=== PATIENT | male | born 1995 | race Caucasian/White ===

== ENCOUNTER 2016-11-05 16:52 | Emergency (ER) | payer BC, OTHER ==
[2016-11-05 17:50] VITALS: RESP 20
--- NOTE | 2016-11-05 19:27 | ED ---
General Adult HPI - General Chief complaint: Wound/Laceration Stated complaint: Wound on Toe Time Seen by Provider: 11/05/16 19:07 Source: patient, family, RN notes reviewed Mode of arrival: wheelchair Limitations: physical limitation - History of Present Illness Initial comments: Chief complaint and history of present illness this is a 21-year-old male who is with his mother. The patient has previous neurologic disorderspina bifida with mental retardation. 5 days ago she noticed he had what appeared to be an infection starting on his right great toe. Today this appears to be a small blister. Minimal no drainage this time. Looks to the patient rubs his toe within his shoe against the bottom of the shoe causing a callus which has since opened. - Related Data Home Medications Medication Instructions Recorded Confirmed Losartan [Cozaar] 25 mg PO QAM 06/22/14 11/05/16 Oxybutynin Chloride [Ditropan XL] 15 mg PO QAM 06/22/14 11/05/16 Previous Rx's Medication Instructions Recorded Mupirocin 2% Oint [Bactroban 2% 1 applic TOPICAL TID #22 gm 11/05/16 Oint] Allergies Allergy/AdvReac Type Severity Reaction Status Date / Time Latex, Natural Rubber Allergy Rash/Hives Verified 11/05/16 19:33 nitrofurantoin Allergy Rash/Hives Verified 11/05/16 19:33 macrocrystalline [From Macrodantin] Review of Systems ROS Statement: Those systems with pertinent positive or pertinent negative responses have been documented in the HPI. Review of systems no other complaints at this time. Patient has no sensation from the waist down per mother. Past problems significant for ALLERGIES to latex, natural rubber and nitrofurantoin past history of back surgeries, tonsillectomy and PREVENTION COORDINATOR shunt. History of spina bifida, seizure disorders last was a year ago sleep apnea and uses CPAP. Wheelchair bound. ROS Other: All systems not noted in ROS Statement are negative. Past Medical History Past Medical History: Neurologic Disorder, Seizure Disorder, Sleep Apnea/CPAP/ BIPAP Additional Past Medical History / Comment(s): spina bifida, mentally impaired, mom straight caths pt, past hx renal failure, hx of UTI's w/sepsis in Aug & sep 2013 History of Any Multi-Drug Resistant Organisms: None Reported Past Surgical History: Back Surgery, Tonsillectomy Additional Past Surgical History / Comment(s): PREVENTION COORDINATOR shunt w/several revisions, back surg. 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 right uretral reimplantation, cervical fusion, cystoscopy with double-J stent left uretera 03/29/2016. Past Anesthesia/Blood Transfusion Reactions: No Reported Reaction Past Psychological History: No Psychological Hx Reported Smoking Status: Never smoker Past Alcohol Use History: None Reported Additional Past Alcohol Use History / Comment(s): Patient lives at home with his mother. 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 Past Drug Use History: None Reported - Past Family History Brother(s) Family Medical History: Seizure Disorder General Exam - General Exam Comments Initial Comments: General: The patient is awake and alert, in no distress, patient is pleasant and answers questions without difficulty. Vital signs temp 97.5 pulse 112 respiratory rate 20 pulse ox 97% room air blood pressure 141/85. Elevated systolic noted. Patient be following up with his family physician next week. Eye: Pupils are equal, , extra-ocular movements are intact; there is normal conjunctiva bilaterally. No signs of icterus. Ears, nose, mouth and throat: There are moist mucous membranes Neck: No apparent pain with head or neck movement Cardiovascular: There is a regular rate and rhythm. No murmur, rub or gallop is appreciated. Respiratory: Lungs clear to auscultation Gastrointestinal: Morbidly obese, 5 foot 1 and weighs 315 pounds Musculoskeletal: Examination of the right great toe finds were area around the tip of the toe where the patient appears to have "formed callus rubbing either on the bottom of his shoe or on the inside of his shoe he is nonambulatory. Does not appear to have been caused by bumping it against a solid surface but rather the center of the callus was worn down and he developed a little bubble of infection this area. Essentially dry at this time culture was taken of the tip where mother reports there was a discharge earlier Neurological: Spina bifida nonambulatory Limitations: physical limitation Course Vital Signs 11/05/16 17:47 Temperature 97.5 F L Pulse Rate 112 H Respiratory 20 Rate Blood Pressure 141/85 O2 Sat by Pulse 97 Oximetry Medical Decision Making - Medical Decision Making Medical decision making; culture of the tip of the toe was sent to lab. X-ray of the toes were done and reviewed by radiologist his impression is there is a 5 mm nondisplaced chip fracture of the posterior base of the distal phalanx of the big toe seen on the lateral. There is no dislocation. Impression; small nondisplaced chip fracture of the distal phalanx of the toe. As read by Dr. Severino The patient will have topical Bactroban placed on the area to prevent infection. I discussed with mother the possibility of a small fracture. We advised that they follow-up with the family physician Disposition Clinical Impression: Infection of toe Disposition: HOME SELF-CARE Condition: Fair Additional Instructions: Apply Bactroban 3 times daily, wear white socks. Give plenty of room for the toe in the shoe. Wear clean shoes Prescriptions: Mupirocin 2% Oint [Bactroban 2% Oint] 1 applic TOPICAL TID #22 gm Time of Disposition: 21:05
--- NOTE | 2016-11-05 19:36 | XR ---
EXAMINATION TYPE: XR toes RT DATE OF EXAM: 11/05/2016 7:32 PM COMPARISON: NONE HISTORY: Stubbed big toe TECHNIQUE: 3 views FINDINGS: There is a 5 mm nondisplaced chip fracture of the posterior base of the distal phalanx of t he big toe seen on the lateral view. There is no dislocation. IMPRESSION: Small nondisplaced chip fracture of the distal phalanx of the big toe.
[2016-11-05 21:26] VITALS: BP 142/67; PULSE 87; TEMP 97.9
[2016-11-05] MEDS ORDERED: MUPIROCIN 2% OINT 22 GM TUBE TOPICAL SCH (22:00)
== END 2016-11-05 21:26 | disposition home or self-care (01) ==
LOC: EC 16:52
DX: S92.424A Nondisplaced fracture of distal phalanx of right great toe, initial encounter for closed fracture (principal); L08.9 Local infection of the skin and subcutaneous tissue, unspecified; Q05.9 Spina bifida, unspecified; F79 Unspecified intellectual disabilities; Z79.899 Other long term (current) drug therapy; Z91.040 Latex allergy status; Z88.8 Allergy status to other drugs, medicaments and biological substances; X58.XXXA Exposure to other specified factors, initial encounter
CPT/HCPCS: 87070; 87205; 99283

== ENCOUNTER → 2016-11-17 | Outpatient (CLI) | payer OTHER ==
--- NOTE | 2016-11-17 19:59 | CT ---
EXAMINATION TYPE: CT abdomen pelvis wo con DATE OF EXAM: 11/17/2016 7:35 PM COMPARISON: 04/13/2016 HISTORY: History of kidney stones. Unsure of side. CT DLP: 1533.00 mGycm Automated exposure control for dose reduction was used. TECHNIQUE: Helical acquisition of images was performed from the lung bases through the pelvis. FINDINGS: The lung bases are clear. There is no pleural effusion. The spleen is slightly enlarged. Spleen measures 14 x 7 cm. Liver shows no focal defect. Mild ducts a re not dilated. Gallbladder appears normal. There is no pancreatic mass. There is no adrenal mass. There are multiple bilateral renal calcifications. There is some renal liseth ical atrophy. This calcification seen in the lower poles of both kidneys. The ureters are not dilated . There is no retroperitoneal adenopathy. There is no ascites. Appendix appears normal. There is a lowell ia on the posterior lateral abdomen on the right side that contains the appendix and omental fat. The re is no sign of a bowel obstruction. I see no bony destructive process. There is a large spur at T11 -12 posteriorly that is encroaching on the spinal canal and producing a significant spinal stenosis. There is spina bifida noted in the lower lumbar spine. I see no intestinal wall thickening. There are no dilated loops. There is noted in the apparent ventriculoperitoneal shunt catheter that is looped in the pelvis. Bladder distends smoothly. There is no sign of a pelvic mass. IMPRESSION: THERE IS A LATERAL POSTERIOR ABDOMINAL WALL HERNIA THAT CONTAINS THE APPENDIX AND PERITONEAL FAT. NO HERNIA IS SMALLER THAN OLD CT SCAN. NO EVIDENCE OF A BOWEL OBSTRUCTION. SIGNIFICANT SPINAL STENOSIS AT T11-12. RENAL CALCIFICATIONS AND CORTICAL THINNING CONSISTENT WITH CHR ONIC PYELONEPHRITIS AND SCARRING. THERE HAS BEEN REMOVAL OF THE LEFT-SIDED URETERAL STENT SINCE OLD E XAM. NO EVIDENCE OF A RENAL OBSTRUCTION. MUSCLE ATROPHY. SPINA BIFIDA. MILD SPLENOMEGALY. DILATED FLORIDALMA YCES CONSISTENT WITH CHRONIC PYELONEPHRITIS.
== END ==
LOC: RADCTMAIN 19:11
PROVIDERS: ATTEND Urology
DX: N28.89 Other specified disorders of kidney and ureter (principal); K43.9 Ventral hernia without obstruction or gangrene; N11.9 Chronic tubulo-interstitial nephritis, unspecified
CPT/HCPCS: 74176

== ENCOUNTER → 2017-02-23 | Outpatient (CLI) | payer OTHER ==
--- NOTE | 2017-02-23 15:53 | US ---
EXAMINATION TYPE: US kidneys/renal and bladder DATE OF EXAM: 02/23/2017 COMPARISON: ct abdomen and pelvis April 13, 2016 CLINICAL HISTORY: N20.0 Kidney stones. Pt had left renal stone open surgically 07/06 right kidney stent 02/18/2017 pt is w/c and spina bifida and multiple head surgeries EXAM MEASUREMENTS: Right Kidney: 10.1 x 4.3 x 4.7 cm Left Kidney: 8.5 x 4.1 x 3.5 cm Right Kidney: hydronephrosis, stones 0.5 cm mid, Left Kidney: No hydronephrosis or masses seen , Bladder: small calcifications, left bladder 0.4 , 0.5 , 0.7 cm Bilateral Jets seen: left only Normal Post Void Residual: pt needs to be catheterize to void Bladder is poorly distended with small intraluminal calcifications felt present as there are mobile h yperechoic foci seen, differential includes debris. Distal left ureter jet is seen. Distal right jet is not clearly identified. Severe right-sided hydronephrosis is present currently with cortical thinning. Renal calculi are seen better on recent CT. Marked cortical thinning and small size left kidney is noted. No hydronephrosis is identified. Left-sided renal calculi are seen better on CT than ultrasound. IMPRESSION: Severe right-sided hydronephrosis more prominent than prior CT. Consider obstructing righ t ureter calculus, correlate with symptoms of new right-sided flank pain.
== END | disposition home or self-care (01) ==
LOC: RADUSWWP 15:01
PROVIDERS: ATTEND Urology
DX: N13.30 Unspecified hydronephrosis (principal)
CPT/HCPCS: 76770

== ENCOUNTER → 2017-04-22 | Outpatient (CLI) | payer OTHER ==
--- NOTE | 2017-04-22 18:58 | US ---
EXAMINATION TYPE: US kidneys/renal and bladder DATE OF EXAM: 04/22/2017 COMPARISON: Prior US and CT in PACS CLINICAL HISTORY: N13.39 Hydronephrosis, N20.0 Kidney Stone. Difficult/limited exam as patient has sp arcelia bifida and cannot roll or move his body into different positions. Large body habitus. UTI EXAM MEASUREMENTS: Right Kidney: 11.2 x 5.4 x 5.6 cm Left Kidney: 9.3 x 4.9 x 4.6 cm Right Kidney: Hydronephrosis, cortical thinning. No obvious stones visualized on this exam. Left Kidney: No hydronephrosis, no obvious stones visualized on this exam. Bladder: Non-shadowing, hyperechoic, projection like areas visualized on the right side of the bladde r. I do not feel that these are mobile, however it is difficult to say with certainty as the patient cannot roll onto his side. These measure 0.7 and are avascular Bilateral Jets seen: Yes IMPRESSION: There is bilateral renal cortical thinning. There is right-sided hydronephrosis that appears new comp ared to CT scan of 03/29/2016 and could relate to acute obstruction. There is however bilateral ureteral jets in the urinary bladder. There is clearing of the left-sided hydronephrosis compared to the old CT scan. Limited exam due to p atient's size. Irregular urinary bladder. This could relate to chronic cystitis.
== END | disposition home or self-care (01) ==
LOC: RADUSMAIN 17:49
PROVIDERS: ATTEND Urology
DX: N13.2 Hydronephrosis with renal and ureteral calculous obstruction (principal); N30.20 Other chronic cystitis without hematuria
CPT/HCPCS: 76770

== ENCOUNTER → 2017-05-05 | Outpatient (CLI) | payer OTHER | LOC: LABWHC1 08:24 | PROVIDERS: ATTEND Urology | DX: N13.39 Other hydronephrosis (principal) | CPT/HCPCS: 87077; 87086; 87186 ==

== ENCOUNTER 2017-09-15 22:53 | Observation (INO) | payer OTHER ==
[2017-09-15] MEDS ORDERED: SODIUM CHLORIDE 0.9% 1,000 ML IV STA (23:17)
[2017-09-15] MEDS ORDERED: LEVOFLOXACIN 750MG-D5W PMX 750 MG in DEXTROSE/WATER 1 150ML.BAG IVPB STA (23:17)
--- NOTE | 2017-09-15 23:25 | ED ---
Abdominal Pain HPI - General Chief Complaint: Abdominal Pain Stated Complaint: Back Pain Time Seen by Provider: 09/15/17 23:00 Source: patient, family (mother and stepfather) Mode of arrival: EMS Limitations: physical limitation - History of Present Illness Initial Comments: this patient is a 22-year-old man who presents to be evaluated for left flank pain that started between 1 and 2 hours ago. He describes it as sharp, moderate , constant. He has not noted any worsening or relieving factors. Patient states that it is similar to previous pain he had related to kidney stones. He denies any associated symptoms. MD Complaint: flank pain (left) Onset/Timin -: hour(s) Location: L flank Radiation: none Migration to: no migration Severity: moderate Quality: sharp Consistency: constant Improves With: nothing Worsens With: nothing Associated Symptoms: denies other symptoms - Related Data Home Medications Medication Instructions Recorded Confirmed Losartan [Cozaar] 25 mg PO QAM 06/22/14 09/15/17 Oxybutynin Chloride [Ditropan XL] 15 mg PO QAM 06/22/14 09/15/17 Allergies Allergy/AdvReac Type Severity Reaction Status Date / Time Latex, Natural Rubber Allergy Rash/Hives Verified 09/15/17 23:06 nitrofurantoin Allergy Rash/Hives Verified 09/15/17 23:06 macrocrystalline [From Macrodantin] Review of Systems ROS Statement: Those systems with pertinent positive or pertinent negative responses have been documented in the HPI. ROS Other: All systems not noted in ROS Statement are negative. Constitutional: Denies: fever, chills, weakness Respiratory: Denies: cough, dyspnea Cardiovascular: Denies: chest pain, orthopnea, edema, syncope Gastrointestinal: Reports: as per HPI, abdominal pain. Denies: nausea, vomiting , diarrhea, constipation Genitourinary: Denies: frequency, hematuria Musculoskeletal: Denies: back pain Skin: Denies: rash Neurological: Denies: headache Past Medical History Past Medical History: Neurologic Disorder, Seizure Disorder, Sleep Apnea/CPAP/ BIPAP Additional Past Medical History / Comment(s): spina bifida, mentally impaired, mom straight caths pt, past hx renal failure, hx of UTI's w/sepsis in Aug & sep 2013 History of Any Multi-Drug Resistant Organisms: None Reported Past Surgical History: Back Surgery, Tonsillectomy Additional Past Surgical History / Comment(s): 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 right uretral reimplantation, cervical fusion, cystoscopy with double-J stent left uretera 03/29/2016. Past Anesthesia/Blood Transfusion Reactions: No Reported Reaction Past Psychological History: No Psychological Hx Reported Smoking Status: Never smoker Past Alcohol Use History: None Reported Past Drug Use History: None Reported - Past Family History Brother(s) Family Medical History: Seizure Disorder General Exam Limitations: physical limitation General appearance: alert, obese Head exam: Present: atraumatic, normocephalic Eye exam: Present: normal appearance. Absent: scleral icterus, conjunctival injection ENT exam: Present: normal oropharynx Neck exam: Present: normal inspection Respiratory exam: Present: normal lung sounds bilaterally. Absent: respiratory distress, wheezes, rales, rhonchi, stridor Cardiovascular Exam: Present: normal rhythm, tachycardia, normal heart sounds. Absent: systolic murmur, diastolic murmur, rubs, gallop GI/Abdominal exam: Present: soft. Absent: distended, tenderness, guarding, rebound Extremities exam: Present: pedal edema, other (patient has congenital deformities and edema bilaterally. Patient's mother states that the appearance is normal for him.) Back exam: Present: CVA tenderness (L). Absent: CVA tenderness (R) Neurological exam: Present: alert, oriented X3, motor sensory deficit (patient has no sensation to the bilateral lower extremities, which is chronic for him) Skin exam: Present: warm, dry, intact, normal color. Absent: rash Course Vital Signs 09/15/17 09/16/17 09/16/17 23:00 01:14 02:43 Temperature 98.5 F Pulse Rate 125 H 122 H 129 H Respiratory 22 18 18 Rate Blood Pressure 163/91 156/92 137/91 O2 Sat by Pulse 97 97 97 Oximetry Medical Decision Making - Medical Decision Making This patient is 22-year-old man with history of kidney stones and urinary tract infections. The patient does have urinary tract infection. We are unable to start an IV in the department. I discussed central line placement with the patient and his mother and they are refusing at this point. Patient's mother states he has had good results in the past with PICC line a cement and she is asking if that can be done for him. Based on the results of the patient's last urine culture from August 31, patient will be given dose of IM Rocephin and she will be admitted to have PICC line placement as soon as the PICC team is available. - Lab Data Result diagrams: 09/16/17 00:30 09/16/17 00:30 Lab Results 09/16/17 09/16/17 09/16/17 Range/Units 00:30 00:30 00:30 WBC 9.1 (3.8-10.6) k/uL RBC 5.14 (4.30-5.90) m/uL Hgb 15.6 (13.0-17.5) gm/dL Hct 47.2 (39.0-53.0) % MCV 91.9 (80.0-100.0) fL MCH 30.4 (25.0-35.0) pg MCHC 33.1 (31.0-37.0) g/dL RDW 14.9 (11.5-15.5) % Plt Count 240 (150-450) k/uL Neutrophils % 77 % Lymphocytes % 16 % Monocytes % 4 % Eosinophils % 2 % Basophils % 0 % Neutrophils # 7.0 (1.3-7.7) k/uL Lymphocytes # 1.4 (1.0-4.8) k/uL Monocytes # 0.4 (0-1.0) k/uL Eosinophils # 0.1 (0-0.7) k/uL Basophils # 0.0 (0-0.2) k/uL Sodium 141 (137-145) mmol/L Potassium 4.5 (3.5-5.1) mmol/L Chloride 105 (98-107) mmol/L Carbon Dioxide 23 (22-30) mmol/L Anion Gap 13 mmol/L BUN 32 H (9-20) mg/dL Creatinine 1.20 (0.66-1.25) mg/dL Est GFR (MDRD) Af Amer >60 (>60 ml/min/1.73 sqM) Est GFR (MDRD) Non-Af >60 (>60 ml/min/1.73 sqM) Glucose 108 H (74-99) mg/dL Plasma Lactic Acid Yogi (0.7-2.0) mmol/L Calcium 10.0 (8.4-10.2) mg/dL Total Bilirubin 0.5 (0.2-1.3) mg/dL AST 26 (17-59) U/L ALT 51 (21-72) U/L Alkaline Phosphatase 93 (38-126) U/L Troponin I <0.012 (0.000-0.034) ng/mL Total Protein 8.2 (6.3-8.2) g/dL Albumin 4.5 (3.5-5.0) g/dL Amylase 39 (30-110) U/L Lipase 63 (23-300) U/L Urine Color Urine Appearance (Clear) Urine pH (5.0-8.0) Ur Specific [place] (1.001-1.035) Urine Protein (Negative) Urine Glucose (UA) (Negative) Urine Ketones (Negative) Urine Blood (Negative) Urine Nitrite (Negative) Urine Bilirubin (Negative) Urine Urobilinogen (<2.0) mg/dL Ur Leukocyte Esterase (Negative) Urine WBC (0-5) /hpf Urine WBC Clumps (None) /hpf Urine Mucus (None) /hpf 09/16/17 09/16/17 Range/Units 00:59 01:51 WBC (3.8-10.6) k/uL RBC (4.30-5.90) m/uL Hgb (13.0-17.5) gm/dL Hct (39.0-53.0) % MCV (80.0-100.0) fL MCH (25.0-35.0) pg MCHC (31.0-37.0) g/dL RDW (11.5-15.5) % Plt Count (150-450) k/uL Neutrophils % % Lymphocytes % % Monocytes % % Eosinophils % % Basophils % % Neutrophils # (1.3-7.7) k/uL Lymphocytes # (1.0-4.8) k/uL Monocytes # (0-1.0) k/uL Eosinophils # (0-0.7) k/uL Basophils # (0-0.2) k/uL Sodium (137-145) mmol/L Potassium (3.5-5.1) mmol/L Chloride (98-107) mmol/L Carbon Dioxide (22-30) mmol/L Anion Gap mmol/L BUN (9-20) mg/dL Creatinine (0.66-1.25) mg/dL Est GFR (MDRD) Af Amer (>60 ml/min/1.73 sqM) Est GFR (MDRD) Non-Af (>60 ml/min/1.73 sqM) Glucose (74-99) mg/dL Plasma Lactic Acid Yogi 0.6 L (0.7-2.0) mmol/L Calcium (8.4-10.2) mg/dL Total Bilirubin (0.2-1.3) mg/dL AST (17-59) U/L ALT (21-72) U/L Alkaline Phosphatase (38-126) U/L Troponin I (0.000-0.034) ng/mL Total Protein (6.3-8.2) g/dL Albumin (3.5-5.0) g/dL Amylase (30-110) U/L Lipase (23-300) U/L Urine Color Yellow Urine Appearance Turbid (Clear) Urine pH 7.0 (5.0-8.0) Ur Specific [place] 1.015 (1.001-1.035) Urine Protein 2+ H (Negative) Urine Glucose (UA) Negative (Negative) Urine Ketones Negative (Negative) Urine Blood Moderate H (Negative) Urine Nitrite Positive (Negative) Urine Bilirubin Negative (Negative) Urine Urobilinogen <2.0 (<2.0) mg/dL Ur Leukocyte Esterase Large H (Negative) Urine WBC >182 H (0-5) /hpf Urine WBC Clumps Many H (None) /hpf Urine Mucus Rare H (None) /hpf Disposition Clinical Impression: UTI (urinary tract infection), Sepsis, Fever Disposition: ADMITTED IP TO THIS [facility] Condition: Serious Referrals: Manfred Barraza MD [Primary Care Provider] - 1-2 days
[2017-09-16 00:43] LABS: Basophils % (A) 0 %; Eosinophils # (A) 0.1 k/uL (0-0.7); Eosinophils % (A) 2 %; HCT 47.2 % (39.0-53.0); HGB 15.6 gm/dL (13.0-17.5); Lymphocytes # (A) 1.4 k/uL (1.0-4.8); Lymphocytes % (A) 16 %; MCH 30.4 pg (25.0-35.0); MCHC 33.1 g/dL (31.0-37.0); MCV 91.9 fL (80.0-100.0); Mean Platelet Volume 7.5; Monocytes # (A) 0.4 k/uL (0-1.0); Monocytes % (A) 4 %; Neutrophils % (A) 77 %; Platelet Count 240 k/uL (150-450); RBC 5.14 m/uL (4.30-5.90); RDW 14.9 % (11.5-15.5); WBC 9.1 k/uL (3.8-10.6)
[2017-09-16 00:59] LABS: ALT 51 U/L (21-72); AST 26 U/L (17-59); Albumin 4.5 g/dL (3.5-5.0); Alkaline Phosphatase 93 U/L (38-126); Amylase 39 U/L (30-110); Anion Gap 13 mmol/L; Blood Urea Nitrogen 32 mg/dL (9-20); Carbon Dioxide 23 mmol/L (22-30); Chloride 105 mmol/L (98-107); Glucose 108 mg/dL (74-99); Lipase 63 U/L (23-300); Potassium 4.5 mmol/L (3.5-5.1); Sodium 141 mmol/L (137-145); Total Bilirubin 0.5 mg/dL (0.2-1.3); Total Protein 8.2 g/dL (6.3-8.2)
[2017-09-16] MEDS ORDERED: LEVOFLOXACIN 750 MG TAB PO STA (01:03)
[2017-09-16] MEDS ORDERED: HYDROcodone/APAP 5-325MG 1 EACH TAB PO STA (01:56)
[2017-09-16 02:04] LABS: Appearance,Urine Turbid (Clear); Bilirubin,Urine Negative (Negative); Blood,Urine Moderate (Negative); Color,Urine Yellow; Glucose,Urine (UA) Negative (Negative); Ketones,Urine Negative (Negative); Leukocyte Esterase,Urine Large (Negative); Mucus,Urine Rare /hpf; Nitrite,Urine Positive (Negative); Protein,Urine 2+ (Negative); Specific Gravity,Urine 1.015 (1.001-1.035); Urobilinogen,Urine <2.0 mg/dL (<2.0); WBC,Urine >182 /hpf (0-5)
[2017-09-16] MEDS ORDERED: HYDROmorphone 1 MG/ML 1 ML SYRINGE IVP STA (02:31)
[2017-09-16] MEDS ORDERED: NALOXONE 0.4 MG/ML 1 ML VIAL IV PRN (02:37)
[2017-09-16] MEDS ORDERED: ACETAMINOPHEN TAB 325 MG TAB PO PRN (02:37)
[2017-09-16] MEDS ORDERED: MORPHINE SULFATE 5 MG/ML SYRINGE IV PRN (02:37)
[2017-09-16] MEDS ORDERED: ONDANSETRON 4 MG/2 ML VIAL IVP PRN (02:37)
[2017-09-16] MEDS ORDERED: cefTRIAXone 1,000 MG VIAL (IM USE) IM STA (02:43)
[2017-09-16] MEDS: SODIUM CHLORIDE 0.9% 1,000 ML IV SCH ×4 (02:55→23:19)
[2017-09-16] MEDS: HEPARIN SODIUM,PORCINE 5,000 UNIT/ML 1 ML VIAL SQ SCH ×3 (08:00→23:19)
[2017-09-16] MEDS: FAMOTIDINE 20 MG TAB PO SCH ×2 (10:45→20:02)
--- NOTE | 2017-09-16 10:52 | P.GSCN ---
History of Present Illness Consult date: 09/16/17 Reason for Consult: Urinary tract infection with sepsis History of present illness: The patient is a 22-year-old male, born with myelomeningocele who was admitted to the hospital urinary tract infection with sepsis. We are asked see the patient consultation. I've seen the patient in the past, urinary half ago for a ureteral calculus, urinary tract infection with sepsis. At that point in time a double-J catheter is placed in the sepsis was controlled. The patient has and had [place] [facility] [place] up having surgery therefore the ureteral and renal stones. He had both open surgery and shockwave lithotripsy. At present he has been going through continued urologic workup by Drs. Hollis and Alex from [place] [facility]. He has a right double-J catheter for an apparent ureteral stricture that gets changed every 2 months. He was last changed in June. He apparently still has a small volume of stone in his left kidney. He is going through a workup at present to determine future management of his upper urinary tract. Lower urinary tract is managed by intermittent catheterization by the patient's mother. This is done every 4 hours. The only previous urologic surgeries related to a reimplant of the right ureter and kidney stone disease. He had left-sided flank pain. He denies fever or chills. He is feeling somewhat better. There is been no nausea or vomiting. His white count was 9.1. He is afebrile. Urine indeed did look infected. He recently was on antibiotics from the office in [facility] Review of Systems - Constitutional Reports chills - Gastrointestinal Reports abdominal pain Past Medical History Past Medical History: Neurologic Disorder, Seizure Disorder, Sleep Apnea/CPAP/ BIPAP Additional Past Medical History / Comment(s): spina bifida, mentally impaired, mom straight caths pt, past hx renal failure, hx of UTI's w/sepsis in Aug & sep 2013 History of Any Multi-Drug Resistant Organisms: None Reported Past Surgical History: Back Surgery, Tonsillectomy Additional Past Surgical History / Comment(s): RADIO PRESENTER shunt w/several revisions, back surg. 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 right uretral reimplantation, cervical fusion, cystoscopy with double-J stent left uretera 03/29/2016. Past Anesthesia/Blood Transfusion Reactions: No Reported Reaction Past Psychological History: No Psychological Hx Reported Smoking Status: Never smoker Past Alcohol Use History: None Reported Past Drug Use History: None Reported - Past Family History Brother(s) Family Medical History: Seizure Disorder Father Family Medical History: Myocardial Infarction ([place]) Additional Family Medical History / Comment(s): Father of heart attack in 2015 Medications and Allergies Home Medications Medication Instructions Recorded Confirmed Type Losartan [Cozaar] 25 mg PO QAM 06/22/14 09/15/17 History Oxybutynin Chloride [Ditropan XL] 15 mg PO QAM 06/22/14 09/15/17 History Allergies Allergy/AdvReac Type Severity Reaction Status Date / Time Latex, Natural Rubber Allergy Rash/Hives Verified 09/15/17 23:06 nitrofurantoin Allergy Rash/Hives Verified 09/15/17 23:06 macrocrystalline [From Macrodantin] Surgical - Exam Vital Signs Temp Pulse Resp BP Pulse Ox 98.5 F 125 H 22 163/91 97 09/15/17 23:00 09/15/17 23:00 09/15/17 23:00 09/15/17 23:00 09/15/17 23:00 - General well developed, well nourished, obese - Eyes PERRL - ENT no hearing loss - Neck trachea midline - Respiratory normal expansion, normal respiratory effort - Cardiovascular Rhythm: regular - Abdomen Abdomen: soft, non tender - Musculoskeletal The patient has a classic myelomeningocele body habitus. He is wheelchair bound. His lower extremities are nonfunctional. other - Psychiatric oriented to time, oriented to person, oriented to place Results - Labs 09/16/17 00:30 09/16/17 00:30 Abnormal Lab Results - Last 24 Hours (Table) 09/16/17 09/16/17 09/16/17 Range/Units 00:30 00:59 01:51 BUN 32 H (9-20) mg/dL Glucose 108 H (74-99) mg/dL Plasma Lactic Acid Yogi 0.6 L (0.7-2.0) mmol/L Urine Protein 2+ H (Negative) Urine Blood Moderate H (Negative) Ur Leukocyte Esterase Large H (Negative) Urine WBC >182 H (0-5) /hpf Urine WBC Clumps Many H (None) /hpf Urine Mucus Rare H (None) /hpf Diabetes panel 09/16/17 Range/Units 00:30 Sodium 141 (137-145) mmol/L Potassium 4.5 (3.5-5.1) mmol/L Chloride 105 (98-107) mmol/L Carbon Dioxide 23 (22-30) mmol/L BUN 32 H (9-20) mg/dL Creatinine 1.20 (0.66-1.25) mg/dL Glucose 108 H (74-99) mg/dL Calcium 10.0 (8.4-10.2) mg/dL AST 26 (17-59) U/L ALT 51 (21-72) U/L Alkaline Phosphatase 93 (38-126) U/L Total Protein 8.2 (6.3-8.2) g/dL Albumin 4.5 (3.5-5.0) g/dL Calcium panel 09/16/17 Range/Units 00:30 Calcium 10.0 (8.4-10.2) mg/dL Albumin 4.5 (3.5-5.0) g/dL Pituitary panel 09/16/17 Range/Units 00:30 Sodium 141 (137-145) mmol/L Potassium 4.5 (3.5-5.1) mmol/L Chloride 105 (98-107) mmol/L Carbon Dioxide 23 (22-30) mmol/L BUN 32 H (9-20) mg/dL Creatinine 1.20 (0.66-1.25) mg/dL Glucose 108 H (74-99) mg/dL Calcium 10.0 (8.4-10.2) mg/dL Adrenal panel 09/16/17 Range/Units 00:30 Sodium 141 (137-145) mmol/L Potassium 4.5 (3.5-5.1) mmol/L Chloride 105 (98-107) mmol/L Carbon Dioxide 23 (22-30) mmol/L BUN 32 H (9-20) mg/dL Creatinine 1.20 (0.66-1.25) mg/dL Glucose 108 H (74-99) mg/dL Calcium 10.0 (8.4-10.2) mg/dL Total Bilirubin 0.5 (0.2-1.3) mg/dL AST 26 (17-59) U/L ALT 51 (21-72) U/L Alkaline Phosphatase 93 (38-126) U/L Total Protein 8.2 (6.3-8.2) g/dL Albumin 4.5 (3.5-5.0) g/dL Assessment and Plan Assessment: Impression: Urinary tract infection, myelomeningocele, history of kidney stones , history of right ureteral stricture. Neurogenic bladder. Recommendations since the patient is cared for urologically at [facility] I will only get a KUB to make sure he doesn't have a left ureteral stone however I suspect this is not the case is his white count is not elevated nor is his creatinine significantly. If the KUB is negative than antibiotics are all that will be necessary. He will follow-up with his urologist at [facility].
[2017-09-16] MEDS: HYDROcodone/APAP 5-325MG 1 EACH TAB PO PRN ×2 (10:58→19:27)
[2017-09-16] MEDS ORDERED: LIDOCAINE 2% INJ 20 MG/ML SQ ONE (11:38)
--- NOTE | 2017-09-16 11:50 | P.HPIM ---
History of Present Illness 22-year-old male with history of some dull mental delay and meningo- myelocele with history of multiple urinary tract infections in the past and urethral stones with the J-tube placement in the past came in with the complaints of left flank pain patient does have significant elevated white blood cell count in the urine patient was subsequently elevated admitted for urinary tract infection patient was was well-known to Dr. Patten infectious disease and urology, neurology evaluated the patient and a KUB x-ray is being obtained, ultrasound of the urinary bladder but I do not have results available area patient does not have any fever doesn't have any leukocytosis. Infectious disease is recommending a PICC line Review of Systems REVIEW OF SYSTEMS: CONSTITUTIONAL: No fever, no malaise, no fatigue. HEENT: No recent visual problems or hearing problems. Denied any sore throat. CARDIOVASCULAR: No chest pain, orthopnea, PND, no palpitations, no syncope. PULMONARY: No shortness of breath, no cough, no hemoptysis. GASTROINTESTINAL: No diarrhea, no nausea, no vomiting, no abdominal pain. Normoactive bowel sounds. NEUROLOGICAL: No headaches, no weakness, no numbness. HEMATOLOGICAL: Denies any bleeding or petechiae. GENITOURINARY: Denies any burning micturition, frequency, or urgency. MUSCULOSKELETAL/RHEUMATOLOGICAL: Denies any joint pain, swelling, or any muscle pain. ENDOCRINE: Denies any polyuria or polydipsia. The rest of the 14-point review of systems is negative. Past Medical History Past Medical History: Neurologic Disorder, Seizure Disorder, Sleep Apnea/CPAP/ BIPAP Additional Past Medical History / Comment(s): spina bifida, mentally impaired, mom straight caths pt, past hx renal failure, hx of UTI's w/sepsis in Aug & sep 2013 History of Any Multi-Drug Resistant Organisms: None Reported Past Surgical History: Back Surgery, Tonsillectomy Additional Past Surgical History / Comment(s): BRIDGE EXPERT shunt w/several revisions, back surg. 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 right uretral reimplantation, cervical fusion, cystoscopy with double-J stent left uretera 03/29/2016. Past Anesthesia/Blood Transfusion Reactions: No Reported Reaction Past Psychological History: No Psychological Hx Reported Smoking Status: Never smoker Past Alcohol Use History: None Reported Past Drug Use History: None Reported - Past Family History Brother(s) Family Medical History: Seizure Disorder Father Family Medical History: Myocardial Infarction ([place]) Additional Family Medical History / Comment(s): Father of heart attack in 2016 Medications and Allergies Home Medications Medication Instructions Recorded Confirmed Type Losartan [Cozaar] 25 mg PO QAM 06/22/14 09/15/17 History Oxybutynin Chloride [Ditropan XL] 15 mg PO QAM 06/22/14 09/15/17 History Allergies Allergy/AdvReac Type Severity Reaction Status Date / Time Latex, Natural Rubber Allergy Rash/Hives Verified 09/15/17 23:06 nitrofurantoin Allergy Rash/Hives Verified 09/15/17 23:06 macrocrystalline [From Macrodantin] Physical Exam Vitals: Vital Signs Temp Pulse Pulse Resp BP BP Pulse Ox 09/16/17 07:00 98.0 F 112 H 18 129/81 97 09/16/17 04:00 98.5 F 113 H 16 147/65 94 L 09/16/17 03:23 99.1 F 129 H 20 134/74 97 09/16/17 02:43 129 H 18 137/91 97 09/16/17 01:14 122 H 18 156/92 97 09/15/17 23:00 98.5 F 125 H 22 163/91 97 Intake and Output 09/15/17 09/16/17 09/16/17 22:59 06:59 14:59 Intake Total 0 Balance 0 Intake: IV 0 Sodium Chloride 0.9% 1, 0 000 ml @ 150 mls/hr IV . Q6H40M [facility] Rx#:[id number] Other: Voiding Method Diaper Incontinent Self-Catheterization # Voids 0 Weight 133.81 kg PHYSICAL EXAMINATION: GENERAL: The patient is alert and oriented x3, not in any acute distress. Well developed, well nourished. These HEENT: Pupils are round and equally reacting to light. EOMI. No scleral icterus. No conjunctival pallor. Normocephalic, atraumatic. No pharyngeal erythema. No thyromegaly. CARDIOVASCULAR: S1 and S2 present. No murmurs, rubs, or gallops. PULMONARY: Chest is clear to auscultation, no wheezing or crackles. ABDOMEN: Soft, nontender, nondistended, normoactive bowel sounds. No palpable organomegaly. MUSCULOSKELETAL: No joint swelling or deformity. EXTREMITIES: No cyanosis, clubbing, or pedal edema. NEUROLOGICAL: Gross neurological examination did not reveal any focal deficits. His have developmental delay SKIN: No rashes. Results CBC & Chem 7: 09/16/17 00:30 09/16/17 00:30 Labs: Abnormal Lab Results - Last 24 Hours (Table) 09/16/17 09/16/17 09/16/17 Range/Units 00:30 00:59 01:51 BUN 32 H (9-20) mg/dL Glucose 108 H (74-99) mg/dL Plasma Lactic Acid Yogi 0.6 L (0.7-2.0) mmol/L Urine Protein 2+ H (Negative) Urine Blood Moderate H (Negative) Ur Leukocyte Esterase Large H (Negative) Urine WBC >182 H (0-5) /hpf Urine WBC Clumps Many H (None) /hpf Urine Mucus Rare H (None) /hpf Microbiology - Last 24 Hours (Table) 09/16/17 01:51 Urine Culture - Preliminary Urine,Catheterized Thrombosis Risk Factor Assmnt - Choose All That Apply Any of the Below Risk Factors Present?: Yes Each Factor Represents 1 point: Medical pt on bed rest, Obesity (BMI >25) Other Risk Factors: Yes Each Risk Factor Represents 2 Points: Patient confined to bed Thrombosis Risk Factor Assessment Total Risk Factor Score: 4 Thrombosis Risk Factor Assessment Level: Moderate Risk Assessment and Plan Plan: -Left flank pain: Possibility of left renal calculi and possibility of urinary tract infection patient is on on Rocephin and IV fluids to be continued patient had E. coli in the past which was sensitive to Rocephin and other cephalosporins. -Seizure disorder -Obesity and sleep apnea and uses CPAP machine at home which will be continued -Hypertension -meningomyelocele and mental delay for his chronic medical problems patient will continued on appropriate home medications.
--- NOTE | 2017-09-16 12:16 | US ---
EXAMINATION TYPE: US kidneys/renal and bladder DATE OF EXAM: 09/16/2017 COMPARISON: US dated 04/22/[address] & [address] dated 11/17/2016 CLINICAL HISTORY: hydronephrosis. H/O renal stones, hydro, right renal stent in place x 1 1/2 yrs, co mplains of left flank pain EXAM MEASUREMENTS: Right Kidney: 10.1 x 3.8 x 3.6 cm Left Kidney: 9.3 x 4.7 x 4.1 cm Difficult scan, portable on morbidly obese pt Right Kidney: Cortical thinning, hydronephrosis has improved when compared to previous, only mild hyd ronephrosis persists/ possible 9mm calculus at upper pole Left Kidney: No evidence of hydro, possible 9mm calculi at upper pole, difficult to visualize Bladder: Irregular posterior wall as seen on previous Bilateral Jets seen: No Incidental finding enlarged spleen There is a stent noted distally at the level of the ureterovesical orifice on the right. IMPRESSION: Underlying medical renal disease. Hydronephrosis improved in the right kidney, suspect there may be a double-J stent within the right kidney extending to bladder. Some calcifications associated with the kidneys.
[2017-09-16] MEDS: cefTRIAXone IN SWFI 1,000 MG/10 ML SYRINGE IVP SCH (12:51)
--- NOTE | 2017-09-16 14:18 | XR ---
EXAMINATION TYPE: XR KUB DATE OF EXAM: 09/16/2017 1:37 PM CLINICAL HISTORY: History of nephrolithiasis and UTI TECHNIQUE: Single supine KUB image of the abdomen is obtained. COMPARISON: None. FINDINGS: There is partial visualization of a right catheter presumed to represent a ventriculoperito justina shunt alternatively this could represent a hemodialysis catheter. The distal aspect of this is c oiled within the left hemipelvis. A right ureteral stent is also seen with its proximal portion coile d in the region of the right renal pelvis and distal portion coiled within the region of the urinary bladder. 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 Overlying bowel gas pattern is nonobstructive in its visualized portio ns. Punctate right mid to lower pole 3 mm renal calculus is noted. No other calculi are seen within t he regions of the kidneys or along the expected courses of the ureters. IMPRESSION: 1. 3 mm right renal calculus and right ureteral stents appearing appropriately placed. 2. Congenital anomalies as described above.
--- NOTE | 2017-09-16 14:21 | IR ---
EXAMINATION TYPE: IR cvc insert >=5 years DATE OF EXAM: 09/16/2017 COMPARISON: NONE CLINICAL HISTORY: Infection Needs long-term intravenous access for antibiotics. PROCEDURE: After informed consent, the skin overlying the left basilic vein was localized with ultrasound and no kamilla to be compressible and patent. An ultrasound image was obtained and submitted on the patient's c aguilar. The overlying skin was prepped and draped and Lidocaine was used for local anesthesia. A skin rose mary was made with a scalpel. Access was gained to the vein under ultrasound guidance with a 21 gau ge needle and a 0.018 inch wire was advanced. Access site was dilated with Peel-Away sheath and cath eter tailored to the appropriate length and advanced such that the distal tip is at the cavoatrial ju nction. Spot image was obtained verifying placement. Catheter was fixed to the skin with suture and a sterile dressing was placed following hemostasis. Catheter was aspirated and flushed with saline. Patient was discharged in stable condition without complication. Maximal barrier technique is utili zed. Ultrasound image is documented on the chart. Ultrasound used with sterile technique. Fluoro time and fluoroscopic images submitted to document procedure: 0.8 minutes fluoroscopy time, 23 6 intraoperative images document the procedure IMPRESSION: STATUS POST ULTRASOUND AND FLUOROSCOPIC GUIDED PICC LINE PLACEMENT, READY FOR USE. THIS PROCEDURE WAS PERFORMED BY THE UNDERSIGNED.
[2017-09-16] MEDS: LOSARTAN 25 MG TAB PO SCH (20:02)
[2017-09-16] MEDS: OXYBUTYNIN 15 MG TAB.ER.24 PO SCH (20:02)
--- NOTE | 2017-09-16 22:53 | P.CONS ---
History of Present Illness - Reason for Consult Consult date: 09/16/17 - Chief Complaint fever and left flank pain - History of Present Illness 22-year-old male with a known syringo-myelocele come is chronic urinary tract disease with upper tract obstruction with need for double-J catheter placement it's been replaced every 2 months by his physician in the [place] area. His mother also perform straight catheterization for his chronic bladder difficulties. He has had difficulties with multiple urinary tract infections. Is now developed significant left flank pain associated with fever without much chill but feeling quite poorly. Subsequently presented to Hospital where is evidence of significant leukocytosis and significant pyuria. Subsequently he is admitted for sepsis from urinary tract infection and concerns to obstruction. Neurological evaluation is requested. Infectious diseases consult requested given the history of drug-resistant pathogens. With the patient's development of difficulty some of a poor historian but his mother is very helpful. Review of Systems HEENT:Denies headache or acute visual change. Denies sinus or mouth discomforts. Denies neck stiffness or pain. Denies significant oral cavity pain. Denies difficulty on swallowing. Lungs: Denies significant shortness of breath, cough, sputum production, or hemoptysis. Cardiovascular: Denies significant shortness of breath, chest pain, chest wall pain, orthopnea, dyspnea on exertion, syncope Gastrointestinal:Denies nausea, vomiting, diarrhea, constipation, hematemesis, melena, hematochezia. No no significant change of bowel habit noticed. Musculoskeletal: denies significant myalgias or arthralgias. No new joint swelling. Denies new back pain. Skin: Denies new rash or lesions. No new ulcers or wounds are related.. Neuro: Denies headache or visual change. Denies any new onset weakness or difficulty with ambulation. Denies falls or seizures. Psychiatric:Denies anxiety or depression. Endocrine: Denies significant fatigue, as been attem Urogenital as per the HPI Past Medical History Past Medical History: Neurologic Disorder, Seizure Disorder, Sleep Apnea/CPAP/ BIPAP Additional Past Medical History / Comment(s): spina bifida, mentally impaired, mom straight caths pt, past hx renal failure, hx of UTI's w/sepsis in Aug & sep 2013 History of Any Multi-Drug Resistant Organisms: None Reported Past Surgical History: Back Surgery, Tonsillectomy Additional Past Surgical History / Comment(s): REGISTERED PHYSICAL THERAPIST shunt w/several revisions, back surg. 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 right uretral reimplantation, cervical fusion, cystoscopy with double-J stent left [id number] Past Anesthesia/Blood Transfusion Reactions: No Reported Reaction Past Psychological History: No Psychological Hx Reported Additional Psychological History / Comment(s): Single cared for in the family's home by family and caregivers. No history of tobacco or alcohol use. No international travel. No animal exposures. No experience Smoking Status: Never smoker Past Alcohol Use History: None Reported Past Drug Use History: None Reported - Past Family History Brother(s) Family Medical History: Seizure Disorder Father Family Medical History: Myocardial Infarction ([place]) Additional Family Medical History / Comment(s): Father of heart attack in 2015 Medications and Allergies Home Medications and Allergies Comment(s): Current Medications Acetaminophen (Tylenol Tab) 650 mg PO Q6HR PRN PRN Reason: Mild Pain or Fever > 100.5 Hydrocodone Bitart/Acetaminophen ([place] 5-325) 1 each PO Q4HR PRN PRN Reason: Moderate Pain Last Admin: 09/16/17 19:27 Dose: 1 each Ceftriaxone Sodium (Rocephin) 1,000 mg IVP Q24HR [facility] Last Admin: 09/16/17 12:51 Dose: 1,000 mg Famotidine (Pepcid) 20 mg PO BID [facility] Last Admin: 09/16/17 20:02 Dose: 20 mg Heparin Sodium (Porcine) (Heparin) 5,000 unit SQ Q8HR [facility] Last Admin: 09/16/17 16:21 Dose: 5,000 unit Sodium Chloride (Saline 0.9%) 1,000 mls @ 150 mls/hr IV .Q6H40M [facility] Last Admin: 09/16/17 19:26 Dose: 150 mls/hr Losartan Potassium (Cozaar) 25 mg PO QAM [facility] Last Admin: 09/16/17 20:02 Dose: 25 mg Morphine Sulfate (Morphine Sulfate) 4 mg IV Q4HR PRN PRN Reason: Severe Pain Naloxone HCl (Narcan) 0.2 mg IV Q2M PRN PRN Reason: Opioid Reversal Ondansetron HCl (Zofran) 4 mg IVP Q8HR PRN PRN Reason: Nausea And Vomiting Oxybutynin Chloride (Ditropan Xl) [facility] [place] Last Admin: 09/16/17 20:02 Dose: 15 mg Sodium Chloride (Saline Flush) 20 ml IV Q4HR PRN PRN Reason: PICC Line Sodium Chloride (Saline Flush) 10 ml IV WEEKLY [facility] Sodium Chloride (Saline Flush) 10 ml IV Q4HR PRN PRN Reason: PICC Line Home Medications Medication Instructions Recorded Confirmed Type Losartan [Cozaar] 25 mg PO QA 06/22/14 09/15/17 History Oxybutynin Chloride [Ditropan XL] 15 mg PO QAM 06/22/14 09/15/17 History cefTRIAXone [Rocephin] 2,000 mg IVPB Q24HR #21 vial 09/16/17 Rx Allergies Allergy/AdvReac Type Severity Reaction Status Date / Time Latex, Natural Rubber Allergy Rash/Hives Verified 09/15/17 23:06 nitrofurantoin Allergy Rash/Hives Verified 09/15/17 23:06 macrocrystalline [From Macrodantin] Physical Exam Vitals: Vital Signs Temp Pulse Pulse Resp BP BP Pulse Ox 09/16/17 15:00 99.1 F 95 18 125/66 97 09/16/17 07:00 98.0 F 112 H 18 129/81 97 09/16/17 04:00 98.5 F 113 H 16 147/65 94 L 09/16/17 03:23 99.1 F 129 H 20 134/74 97 09/16/17 02:43 129 H 18 137/91 97 09/16/17 01:14 122 H 18 156/92 97 09/15/17 23:00 98.5 F 125 H 22 163/91 97 Intake and Output 09/16/17 09/16/17 09/16/17 06:59 14:59 22:59 Intake Total 0 640 Output Total 400 1000 Balance 0 240 -1000 Intake: IV 0 400 Sodium Chloride 0.9% 1, 0 400 000 ml @ 150 mls/hr IV . Q6H40M [facility] Rx#:[id number] Oral 240 Output: Urine 400 1000 Other: Voiding Method Diaper Diaper Diaper Incontinent Incontinent Incontinent Self-Catheterization Self-Catheterization Self-Catheterization # Voids 0 0 Weight 133.81 kg 133.81 kg Patient Weight 09/17/17 06:59 Weight 133.81 kg 22-year-old male with obesity is comfortable at this time is less complaints of pain HEENT: Anicteric conjunctiva are pink and moist nasal mucosa grossly intact without significant lesions, there is no thrush. Neck: The neck is supple without significant lymphadenopathy or thyromegaly. Lungs: Good bilateral air entry without significant crackles or wheezing. There is no significant bronchial sounds. There is no egophony or dullness. Heart: Regular rate and rhythm with an audible S1-S2, no S3 no S4. There is no significant murmur click or rub, PMI was nondisplaced. Abdomen: Obese, Positive bowel sounds soft and nontender without palpable masses or organomegaly. There was no guarding or rebound. Extremities: The upper extremities have excellent pulses they are symmetric, no significant petechiae or telangiectasia. No splinter hemorrhages were noted. The lower extremities are free from significant edema. The peripheral pulses were 2+ and symmetric. Neuro: Awake alert oriented to person place and time. Results CBC & Chem 7: 09/16/17 00:30 09/16/17 00:30 Labs: Abnormal Lab Results - Last 24 Hours (Table) 09/16/17 09/16/17 09/16/17 Range/Units 00:30 00:59 01:51 BUN 32 H (9-20) mg/dL Glucose 108 H (74-99) mg/dL Plasma Lactic Acid Yogi 0.6 L (0.7-2.0) mmol/L Urine Protein 2+ H (Negative) Urine Blood Moderate H (Negative) Ur Leukocyte Esterase Large H (Negative) Urine WBC >182 H (0-5) /hpf Urine WBC Clumps Many H (None) /hpf Urine Mucus Rare H (None) /hpf Microbiology - Last 24 Hours (Table) 09/16/17 01:51 Urine Culture - Preliminary Urine,Catheterized Laboratory Results WBC 9.1 k/uL (3.8-10.6) 09/16/17 00:30 RBC 5.14 m/uL (4.30-5.90) 09/16/17 00:30 Hgb 15.6 gm/dL (13.0-17.5) 09/16/17 00:30 Hct 47.2 % (39.0-53.0) 09/16/17 00:30 MCV 91.9 fL (80.0-100.0) 09/16/17 00:30 MCH 30.4 pg (25.0-35.0) 09/16/17 00:30 MCHC 33.1 g/dL (31.0-37.0) 09/16/17 00:30 RDW 14.9 % (11.5-15.5) 09/16/17 00:30 Plt Count 240 k/uL (150-450) 09/16/17 00:30 Neutrophils % 77 % 09/16/17 00:30 Lymphocytes % 16 % 09/16/17 00:30 Monocytes % 4 % 09/16/17 00:30 Eosinophils % 2 % 09/16/17 00:30 Basophils % 0 % 09/16/17 00:30 Neutrophils # 7.0 k/uL (1.3-7.7) 09/16/17 00:30 Lymphocytes # 1.4 k/uL (1.0-4.8) 09/16/17 00:30 Monocytes # 0.4 k/uL (0-1.0) 09/16/17 00:30 Eosinophils # 0.1 k/uL (0-0.7) 09/16/17 00:30 Basophils # 0.0 k/uL (0-0.2) 09/16/17 00:30 Sodium 141 mmol/L (137-145) 09/16/17 00:30 Potassium 4.5 mmol/L (3.5-5.1) 09/16/17 00:30 Chloride 105 mmol/L (98-107) 09/16/17 00:30 Carbon Dioxide 23 mmol/L (22-30) 09/16/17 00:30 Anion Gap 13 mmol/L 09/16/17 00:30 BUN 32 mg/dL (9-20) H 09/16/17 00:30 Creatinine 1.20 mg/dL (0.66-1.25) 09/16/17 00:30 Est GFR (MDRD) Af Amer >60 (>60 ml/min/1.73 sqM) 09/16/17 00:30 Est GFR (MDRD) Non-Af >60 (>60 ml/min/1.73 sqM) 09/16/17 00:30 Glucose 108 mg/dL (74-99) H 09/16/17 00:30 Plasma Lactic Acid Yogi 0.6 mmol/L (0.7-2.0) L 09/16/17 00:59 Calcium 10.0 mg/dL (8.4-10.2) 09/16/17 00:30 Total Bilirubin 0.5 mg/dL (0.2-1.3) 09/16/17 00:30 AST 26 U/L (17-59) 09/16/17 00:30 ALT 51 U/L (21-72) 09/16/17 00:30 Alkaline Phosphatase 93 U/L (38-126) 09/16/17 00:30 Troponin I <0.012 ng/mL (0.000-0.034) 09/16/17 00:30 Total Protein 8.2 g/dL (6.3-8.2) 09/16/17 00:30 Albumin 4.5 g/dL (3.5-5.0) 09/16/17 00:30 Amylase 39 U/L (30-110) 09/16/17 00:30 Lipase 63 U/L (23-300) 09/16/17 00:30 Urine Color Yellow 09/16/17 01:51 Urine Appearance Turbid (Clear) 09/16/17 01:51 Urine pH 7.0 (5.0-8.0) 09/16/17 01:51 Ur Specific [place] 1.015 (1.001-1.035) 09/16/17 01:51 Urine Protein 2+ (Negative) H 09/16/17 01:51 Urine Glucose (UA) Negative (Negative) 09/16/17 01:51 Urine Ketones Negative (Negative) 09/16/17 01:51 Urine Blood Moderate (Negative) H 09/16/17 01:51 Urine Nitrite Positive (Negative) 09/16/17 01:51 Urine Bilirubin Negative (Negative) 09/16/17 01:51 Urine Urobilinogen <2.0 mg/dL (<2.0) 09/16/17 01:51 Ur Leukocyte Esterase Large (Negative) H 09/16/17 01:51 Urine WBC >182 /hpf (0-5) H 09/16/17 01:51 Urine WBC Clumps Many /hpf (None) H 09/16/17 01:51 Urine Mucus Rare /hpf (None) H 09/16/17 01:51 Microbiology 09/16/17 01:51 Urine,Catheterized Urine Culture - Preliminary Assessment and Plan (1) Sepsis Current Visit: Yes Status: Acute Code(s): A41.9 - SEPSIS, UNSPECIFIED ORGANISM SNOMED Code(s): 81541739 (2) UTI (urinary tract infection) Narrative/Plan: 22-year-old male with a syringomyelocele and developmental delay presents to hospital with difficulties of fevers and chills as well as some left flank pain. Is no history of disease of his urinary system such that he requires double-J catheter to be placed for an obstructive process in the upper tract and uses intermittent straight catheterizations for drainage of urinary bladder due to outflow difficulties. Is a history of multiple prior infections. No has evidence of a significant urinary tract infection and his concerns to a somewhat resistant pathogen and constantly ceftriaxone is being utilized. He has poor IV access and we constantly asked for a PICC line placed so we can complete a couple course of antibiotic therapy in the outpatient setting with ceftriaxone. Mother is done outpatient intravenous antibiotic therapy in the home in the past. She always has [facility] homecare and [facility] infusion. At this time cultures are pending but the plan will be for the patient to receive Rocephin as an outpatient was highly effective in the past. Current Visit: Yes Status: Acute Code(s): N39.0 - URINARY TRACT INFECTION, SITE NOT SPECIFIED SNOMED Code(s): 72349965 (3) Fever Current Visit: Yes Status: Acute Code(s): R50.9 - FEVER, UNSPECIFIED SNOMED Code(s): 018888966 (4) Leukocytosis Current Visit: No Status: Acute Code(s): D72.829 - ELEVATED WHITE BLOOD CELL COUNT, UNSPECIFIED SNOMED Code(s): 808885411
[2017-09-17] MEDS: cefTRIAXone IN SWFI 1,000 MG/10 ML SYRINGE IVP SCH (08:04)
[2017-09-17] MEDS: HEPARIN SODIUM,PORCINE 5,000 UNIT/ML 1 ML VIAL SQ SCH ×2 (08:05→16:35)
[2017-09-17] MEDS: LOSARTAN 25 MG TAB PO SCH (10:04)
[2017-09-17] MEDS: FAMOTIDINE 20 MG TAB PO SCH ×2 (10:04→20:52)
[2017-09-17] MEDS: OXYBUTYNIN 15 MG TAB.ER.24 PO SCH (10:04)
[2017-09-17] MEDS: SODIUM CHLORIDE 0.9% 1,000 ML IV SCH ×2 (10:06→16:17)
--- NOTE | 2017-09-17 11:59 | P.PN ---
Subjective Progress Note Date: 09/17/17 The patient was seen for urinary tract infections with sepsis. He has myelomeningocele. He has a stent on the right side. He has 1 stone on the left side. He had left-sided flank pain but there are no stones seen on the KUB. He is is normally evaluated and treated urologically at [facility]. He is due for follow-up there. This can be done as an outpatient. Nothing further urologic is required at this point in time. Objective - Vital Signs Vital signs: Vital Signs Temp 98.1 F 09/17/17 07:00 Pulse 97 09/17/17 08:00 Resp 20 09/17/17 08:00 BP 128/77 09/17/17 07:00 Pulse Ox 97 09/17/17 07:00 Intake & Output 09/16/17 09/17/17 09/17/17 18:59 06:59 18:59 Intake Total 640 Output Total 1400 Balance -760 Weight 133.81 kg Intake: IV 400 Sodium Chloride 0.9% 1, 400 000 ml @ 150 mls/hr IV . Q6H40M [facility] Rx#:[id number] Oral 240 Output: Urine 1400 Other: Voiding Method Diaper Diaper Diaper Incontinent Incontinent Incontinent Self-Catheterization Self-Catheterization Self-Catheterization # Voids 0 1 - Labs CBC & Chem 7: 09/16/17 00:30 09/16/17 00:30 Labs: Microbiology - Last 24 Hours (Table) 09/16/17 01:51 Urine Culture - Preliminary Urine,Catheterized Proteus Species 09/16/17 00:59 Blood Culture - Preliminary Blood No Growth after 24 hours
--- NOTE | 2017-09-17 15:16 | P.DS ---
Providers Date of admission: 09/16/17 02:37 Expected date of discharge: 09/17/17 Attending physician: Ke Schultz Consults: 09/16/17 02:38 Consult Physician Routine Consulting Provider: Manfred Patten Consult Reason/Comments: Urinary tract infection. Patient known to you. Do you want consulting provider notified?: Yes 09/16/17 02:41 Consult Physician Routine Consulting Provider: J Carlos Montenegro Consult Reason/Comments: Patient known to you Do you want consulting provider notified?: Yes Primary care physician: Manfred Mckinnon [place] Hospital Course: Final Diagnoses: -Left flank pain: Possibility of left renal calculi and possibility of urinary tract infection patient is on on Rocephin and IV fluids to be continued patient had E. coli in the past which was sensitive to Rocephin and other cephalosporins. -Seizure disorder -Obesity and sleep apnea and uses CPAP machine at home which will be continued -Hypertension -meningomyelocele and mental delay Hospital course: This is a 22-year-old male with history of some dull mental delay and myelomeningocele with history of multiple urinary tract infections in the past and urethral stones with the J-tube placement in the past. came in with the complaints of left flank pain patient does have significant elevated white blood cell count in the urine patient was subsequently elevated admitted for urinary tract infection. patient was was well-known to Dr. Patten infectious disease and urology and evaluated by both. KUB/US reviewed by Dr. Cummings with no stones reported on KUB, incidental finding enlarged spleen. Hydronephrosis improved in the right kidney, suspect double-J stent within the right kidney extending to bladder with some calcifications. US reports Possible 9 mm calculus at upper pole of right kidney. Patient follows with [facility] urology,and is advised to follow up with them OP. Received IV antibiotics as per infectious disease. Significant clinical improvement the patient has been clear by both urology and infectious disease for discharge. Patient is being discharged home in a stable condition with guarded prognosis. Microbiology 09/16/17 01:51 Urine,Catheterized Urine Culture - Preliminary Proteus Species 09/16/17 00:59 Blood Blood Culture - Preliminary No Growth after 24 hours The impression and plan of care has been dictated as directed. : I performed a history and examination of this patient, discussed the same with the dictator. I agree with the dictator's note ,documented as a scribe. Any additional findings or plans will be noted. Time spent greater than 35 minutes Patient Condition at Discharge: Stable Plan - Discharge Summary New Discharge Prescriptions: New cefTRIAXone [Rocephin] 2,000 mg IVPB Q24HR #21 vial Continue Oxybutynin Chloride [Ditropan XL] 15 mg PO QAM Losartan [Cozaar] 25 mg PO QAM Discharge Medication List Losartan [Cozaar] 25 mg PO QAM 06/22/14 [History] Oxybutynin Chloride [Ditropan XL] 15 mg PO QAM 06/22/14 [History] cefTRIAXone [Rocephin] 2,000 mg IVPB Q24HR #21 vial 09/16/17 [Rx] Follow up Appointment(s)/Referral(s): Manfred Patten MD [STAFF PHYSICIAN] - 2 Weeks Manfred Barraza MD [Primary Care Provider] - 1 Week [facility], [NON-STAFF] - [facility] [Other] - 1 Week Ambulatory/Diagnostic Orders: Basic Metabolic Panel [LAB.AMB] Location: Determined By Patient Complete Blood Count w/diff [LAB.AMB] Location: Determined By Patient Miscellaneous Lab Order [LAB.AMB] Location: Determined By Patient Patient Instructions/Handouts: Urinary Tract Infection in Men (DC) Activity/Diet/Wound Care/Special Instructions: Cardiac diet. Activity as tolerated, change positions every 2 hours while awake. Fall precautions. Straight cath as before at home. PICC card and info provided.
[2017-09-18] MEDS: HEPARIN SODIUM,PORCINE 5,000 UNIT/ML 1 ML VIAL SQ SCH ×2 (00:01→07:51)
[2017-09-18 07:34] VITALS: RESP 18
[2017-09-18] MEDS: FAMOTIDINE 20 MG TAB PO SCH (07:51)
[2017-09-18] MEDS: cefTRIAXone IN SWFI 1,000 MG/10 ML SYRINGE IVP SCH (07:51)
[2017-09-18] MEDS: LOSARTAN 25 MG TAB PO SCH (07:51)
[2017-09-18] MEDS: OXYBUTYNIN 15 MG TAB.ER.24 PO SCH (07:51)
[2017-09-18] MEDS ORDERED: PANTOPRAZOLE 40 MG/10 ML VIAL IVP SCH (12:45)
[2017-09-18 14:09] VITALS: BP 122/81; PULSE 109; TEMP 97.7
--- NOTE | 2017-09-18 15:39 | XR ---
EXAMINATION TYPE: XR chest 2V DATE OF EXAM: 09/18/2017 COMPARISON: Prior chest x-ray 06/17/2016 HISTORY: Tachycardia TECHNIQUE: Frontal and lateral views of the chest are obtained. FINDINGS: No interval change. Calcification present along the ventricular peritoneal shunt tubing ov er the right neck. Postop changes noted to the cervical spine. There is an azygos lobe noted incident ally. No evident pneumonia, pneumothorax, or pleural effusion. Cardiac mediastinal silhouette, pulmon saloni vascularity and toya are unchanged. IMPRESSION: Stable exam, no acute cardiopulmonary disease
--- NOTE | 2017-09-18 18:27 | P.PN ---
Subjective Progress Note Date: 09/17/17 Progress note being dictated for Dr. Schultz [facility] course:This is a 22-year-old male with history of some dull mental delay and myelomeningocele with history of multiple urinary tract infections in the past and urethral stones with the J-tube placement in the past. came in with the complaints of left flank pain patient does have significant elevated white blood cell count in the urine patient was subsequently elevated admitted for urinary tract infection. patient was was well-known to Dr. Patten infectious disease and urology and evaluated by both. KUB/US reviewed by Dr. Cummings with no stones reported on KUB, incidental finding enlarged spleen. Hydronephrosis improved in the right kidney, suspect double-J stent within the right kidney extending to bladder with some calcifications. US reports Possible 9 mm calculus at upper pole of right kidney. Patient follows with [facility] urology,and is advised to follow up with them OP. Received IV antibiotics as per infectious disease. Significant clinical improvement the patient has been clear by both urology and infectious disease for discharge. Patient is being discharged home in a stable condition with guarded prognosis. 09/17/2017 no overnight events. Afebrile. Good diet intake with no nausea vomiting or diarrhea. Denies chest pain, palpitations or increased shortness of breath. Denies flank pain. Denies suprapubic pain. Evaluated by urology with recommendations noted. Objective - Vital Signs Vital signs: Vital Signs Temp 97.7 F 09/18/17 14:08 Pulse 109 H 09/18/17 14:08 Resp 18 09/18/17 14:08 BP 122/81 09/18/17 14:08 Pulse Ox 98 09/18/17 14:08 Intake & Output 09/17/17 09/18/17 09/18/17 18:59 06:59 18:59 Output Total 1350 0 1300 Balance -1350 0 -1300 Output: Urine 1350 0 1300 Other: Voiding Method Self-Catheterization Self-Catheterization Self-Catheterization # Voids 0 # Bowel Movements 1 - Exam GENERAL: The patient is sitting up in bed, alert and oriented x3, not in any acute distress. Well developed, well nourished. HEENT: Pupils are round and equally reacting to light. EOMI. No scleral icterus. No conjunctival pallor. Normocephalic, atraumatic. No pharyngeal erythema. No thyromegaly. CARDIOVASCULAR: S1 and S2 present. No murmurs, rubs, or gallops. PULMONARY: Chest is clear to auscultation, no wheezing or crackles. ABDOMEN: Soft, nontender, nondistended, normoactive bowel sounds. No palpable organomegaly. MUSCULOSKELETAL: No joint swelling or deformity. EXTREMITIES: No cyanosis, clubbing, or pedal edema. NEUROLOGICAL: Gross neurological examination did not reveal any focal deficits. His have developmental delay SKIN: No rashes. - Labs CBC & Chem 7: 09/16/17 00:30 09/16/17 00:30 Labs: Microbiology - Last 24 Hours (Table) 09/16/17 01:51 Urine Culture - Final Urine,Catheterized Proteus Species Gram Neg Bacilli 09/16/17 00:59 Blood Culture - Preliminary Blood No Growth after 48 hours Assessment and Plan Assessment: -Left flank pain: Possibility of left renal calculi and possibility of urinary tract infection, in a patient with history of E. coli -Seizure disorder -Obesity and sleep apnea and uses CPAP machine at home -Hypertension -meningomyelocele and mental delay Plan: Continue on current medication regime ,monitoring. Maintain IV antibiotics, CPAP at night. Discharge planning in progress pending outpatient antibiotics/home care arranged and confirmed. The impression and plan of care has been dictated as directed. : I performed a history and examination of this patient, discussed the same with the dictator. I agree with the dictator's note ,documented as a scribe. Any additional findings or plans will be noted.
== END 2017-09-18 14:26 | disposition home health service (06) ==
LOC: EC 22:53 → 4MS4W 09-16 02:37 → INTOOBSV 09-16 02:37
PROVIDERS: ADMIT Hospitalist; ATTEND Hospitalist
DX: R10.9 Unspecified abdominal pain (principal); G40.909 Epilepsy, unspecified, not intractable, without status epilepticus; I10 Essential (primary) hypertension; G47.30 Sleep apnea, unspecified; Z99.89 Dependence on other enabling machines and devices; E66.01 Morbid (severe) obesity due to excess calories; Z68.43 Body mass index [BMI] 50.0-59.9, adult; Q05.9 Spina bifida, unspecified; Z87.440 Personal history of urinary (tract) infections; N13.2 Hydronephrosis with renal and ureteral calculous obstruction; D72.829 Elevated white blood cell count, unspecified; Z96.0 Presence of urogenital implants; R62.50 Unspecified lack of expected normal physiological development in childhood; R50.9 Fever, unspecified; Z87.442 Personal history of urinary calculi; N31.9 Neuromuscular dysfunction of bladder, unspecified; Z99.3 Dependence on wheelchair; Z74.01 Bed confinement status; Z79.899 Other long term (current) drug therapy; Z91.040 Latex allergy status; Z88.1 Allergy status to other antibiotic agents; Z82.49 Family history of ischemic heart disease and other diseases of the circulatory system
CPT/HCPCS: 99285; 96372 ×5; 96374 ×2; 96376 ×2; 96361 ×2; 96375; 36415; 36569; 80053; 82150; 83605; 83690; 84484; 85025; 81001; 87040; 87086; 71020; 74000; 76770; G0378 ×3; C1751; C1769; J2001; J1644 ×3; J2405; J0696 ×3; J1170

== ENCOUNTER 2018-03-17 10:41 | Emergency (ER) | payer MEDICARE, OTHER ==
[2018-03-17] MEDS ORDERED: SODIUM CHLORIDE 0.9% 1,000 ML IV STA (12:12)
[2018-03-17 13:10] LABS: Appearance,Urine Turbid (Clear); Bacteria,Urine Many /hpf; Basophils % (A) 0 %; Bilirubin,Urine Negative (Negative); Blood,Urine Large (Negative); Color,Urine Light Red; Eosinophils # (A) 0.1 k/uL (0-0.7); Eosinophils % (A) 1 %; Glucose,Urine (UA) Negative (Negative); HGB 15.8 gm/dL (13.0-17.5); Ketones,Urine Negative (Negative); Leukocyte Esterase,Urine Large (Negative); Lymphocytes # (A) 1.1 k/uL (1.0-4.8); Lymphocytes % (A) 17 %; MCH 30.9 pg (25.0-35.0); MCHC 35.2 g/dL (31.0-37.0); MCV 87.9 fL (80.0-100.0); Mean Platelet Volume 6.9; Monocytes # (A) 0.4 k/uL (0-1.0); Monocytes % (A) 7 %; Mucus,Urine Rare /hpf; Neutrophils # (A) 4.6 k/uL (1.3-7.7); Neutrophils % (A) 73 %; Nitrite,Urine Negative (Negative); PH, Urine 6.5 (5.0-8.0); Partial Thromboplastin Time 25.1 sec (22.0-30.0); Platelet Count 214 k/uL (150-450); Protein,Urine 2+ (Negative); Prothrombin Time 10.2 sec (9.0-12.0); RBC 5.12 m/uL (4.30-5.90); RBC,Urine >182 /hpf (0-5); RDW 13.8 % (11.5-15.5); Specific Gravity,Urine 1.013 (1.001-1.035); Urobilinogen,Urine <2.0 mg/dL (<2.0); WBC 6.3 k/uL (3.8-10.6); WBC,Urine >182 /hpf (0-5)
[2018-03-17 13:11] LABS: Albumin 4.6 g/dL (3.5-5.0); Amylase 49 U/L (30-110); Anion Gap 13 mmol/L; Calcium 9.8 mg/dL (8.4-10.2); Carbon Dioxide 26 mmol/L (22-30); Chloride 101 mmol/L (98-107); Glucose 97 mg/dL (74-99); Lipase 55 U/L (23-300); Sodium 140 mmol/L (137-145); Total Bilirubin 0.8 mg/dL (0.2-1.3); Total Protein 8.2 g/dL (6.3-8.2)
[2018-03-17 13:36] LABS: ALT 42 U/L (21-72); AST 33 U/L (17-59); Alkaline Phosphatase 77 U/L (38-126); Blood Urea Nitrogen 25 mg/dL (9-20); Potassium 5.2 mmol/L (3.5-5.1)
--- NOTE | 2018-03-17 13:46 | ED ---
Recheck HPI - General Chief Complaint: Recheck/Abnormal Lab/Rx Stated Complaint: Blood in Urine Time Seen by Provider: 03/17/18 12:05 Source: patient, RN notes reviewed, Caregiver Mode of arrival: wheelchair Limitations: physical limitation - History of Present Illness Initial Comments: This is a 22-year-old male present emergency department with mother for hematuria. Patient does self cath secondary to chronic health issues. Patient only has some bacteria in his urine was found to have noted dark red urine late last night early this morning. Patient reports no pain no fever no chills no nausea vomiting. Patient has a history of renal failure and urinary tract infections. Patient also had a history kidney stones but reports no pain at this time. - Related Data Home Medications Medication Instructions Recorded Confirmed Oxybutynin Chloride [Ditropan XL] 15 mg PO QAM 06/22/14 03/17/18 Acetaminophen Tab [Tylenol Tab] 650 mg PO Q4H PRN 03/17/18 03/17/18 Losartan [Cozaar] 25 mg PO DAILY 03/17/18 03/17/18 Previous Rx's Medication Instructions Recorded Ciprofloxacin HCl [Cipro] 500 mg PO Q12HR #20 tablet 03/17/18 Allergies Allergy/AdvReac Type Severity Reaction Status Date / Time Latex, Natural Rubber Allergy Rash/Hives Verified 03/17/18 11:11 nitrofurantoin Allergy Rash/Hives Verified 03/17/18 11:11 macrocrystalline [From Macrodantin] Review of Systems ROS Statement: Those systems with pertinent positive or pertinent negative responses have been documented in the HPI. ROS Other: All systems not noted in ROS Statement are negative. Past Medical History Past Medical History: Neurologic Disorder, Seizure Disorder, Sleep Apnea/CPAP/ BIPAP Additional Past Medical History / Comment(s): spina bifida, mentally impaired, mom straight caths pt, past hx renal failure, hx of UTI's w/sepsis in Aug & sep 2013 History of Any Multi-Drug Resistant Organisms: None Reported Past Surgical History: Back Surgery, Tonsillectomy Additional Past Surgical History / Comment(s): [employer] shunt w/several revisions, back surg. 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 right uretral reimplantation, cervical fusion, cystoscopy with double-J stent left [id number] Past Anesthesia/Blood Transfusion Reactions: No Reported Reaction Past Psychological History: No Psychological Hx Reported Smoking Status: Never smoker Past Alcohol Use History: None Reported Past Drug Use History: None Reported - Past Family History Brother(s) Family Medical History: Seizure Disorder Father Family Medical History: Myocardial Infarction ([place]) Additional Family Medical History / Comment(s): Father of heart attack in 2015 General Exam Limitations: physical limitation General appearance: alert, in no apparent distress Head exam: Present: atraumatic, normocephalic, normal inspection Respiratory exam: Present: normal lung sounds bilaterally. Absent: respiratory distress, wheezes, rales, rhonchi, stridor Cardiovascular Exam: Present: regular rate, normal rhythm, normal heart sounds. Absent: systolic murmur, diastolic murmur, rubs, gallop, clicks GI/Abdominal exam: Present: soft, normal bowel sounds. Absent: distended, tenderness, guarding, rebound, rigid Back exam: Absent: CVA tenderness (R), CVA tenderness (L) Course Vital Signs 03/17/18 03/17/18 10:53 13:21 Temperature 98.4 F 98 F Pulse Rate 109 H 112 H Respiratory 20 18 Rate Blood Pressure 111/81 137/87 O2 Sat by Pulse 96 98 Oximetry Medical Decision Making - Medical Decision Making 22-year-old male presented from for hematuria. Patient's found to have hemorrhagic cystitis. Patient has no flank pain no fever no white count. Patient does not have any pain consistent with kidney stone at this time. Patient will be given antibiotics advised to increase fluid intake and follow- up with urology. Return parameters were discussed. - Lab Data Result diagrams: 03/17/18 12:47 03/17/18 12:47 Lab Results 03/17/18 03/17/18 03/17/18 Range/Units 12:47 12:47 12:47 WBC 6.3 (3.8-10.6) k/uL RBC 5.12 (4.30-5.90) m/uL Hgb 15.8 (13.0-17.5) gm/dL Hct 45.0 (39.0-53.0) % MCV 87.9 (80.0-100.0) fL MCH 30.9 (25.0-35.0) pg MCHC 35.2 (31.0-37.0) g/dL RDW 13.8 (11.5-15.5) % Plt Count 214 (150-450) k/uL Neutrophils % 73 % Lymphocytes % 17 % Monocytes % 7 % Eosinophils % 1 % Basophils % 0 % Neutrophils # 4.6 (1.3-7.7) k/uL Lymphocytes # 1.1 (1.0-4.8) k/uL Monocytes # 0.4 (0-1.0) k/uL Eosinophils # 0.1 (0-0.7) k/uL Basophils # 0.0 (0-0.2) k/uL PT 10.2 (9.0-12.0) sec INR 1.0 (<1.2) APTT 25.1 (22.0-30.0) sec Sodium 140 (137-145) mmol/L Potassium 5.2 H (3.5-5.1) mmol/L Chloride 101 (98-107) mmol/L Carbon Dioxide 26 (22-30) mmol/L Anion Gap 13 mmol/L BUN 25 H (9-20) mg/dL Creatinine 0.90 (0.66-1.25) mg/dL Est GFR (CKD-EPI)AfAm >90 (>60 ml/min/1.73 sqM) Est GFR (CKD-EPI)NonAf >90 (>60 ml/min/1.73 sqM) Glucose 97 (74-99) mg/dL Calcium 9.8 (8.4-10.2) mg/dL Total Bilirubin 0.8 (0.2-1.3) mg/dL AST 33 (17-59) U/L ALT 42 (21-72) U/L Alkaline Phosphatase 77 (38-126) U/L Total Protein 8.2 (6.3-8.2) g/dL Albumin 4.6 (3.5-5.0) g/dL Amylase 49 (30-110) U/L Lipase 55 (23-300) U/L Urine Color Urine Appearance (Clear) Urine pH (5.0-8.0) Ur Specific [place] (1.001-1.035) Urine Protein (Negative) Urine Glucose (UA) (Negative) Urine Ketones (Negative) Urine Blood (Negative) Urine Nitrite (Negative) Urine Bilirubin (Negative) Urine Urobilinogen (<2.0) mg/dL Ur Leukocyte Esterase (Negative) Urine RBC (0-5) /hpf Urine WBC (0-5) /hpf Urine WBC Clumps (None) /hpf Urine Bacteria (None) /hpf Urine Mucus (None) /hpf 03/17/18 Range/Units 12:47 WBC (3.8-10.6) k/uL RBC (4.30-5.90) m/uL Hgb (13.0-17.5) gm/dL Hct (39.0-53.0) % MCV (80.0-100.0) fL MCH (25.0-35.0) pg MCHC (31.0-37.0) g/dL RDW (11.5-15.5) % Plt Count (150-450) k/uL Neutrophils % % Lymphocytes % % Monocytes % % Eosinophils % % Basophils % % Neutrophils # (1.3-7.7) k/uL Lymphocytes # (1.0-4.8) k/uL Monocytes # (0-1.0) k/uL Eosinophils # (0-0.7) k/uL Basophils # (0-0.2) k/uL PT (9.0-12.0) sec INR (<1.2) APTT (22.0-30.0) sec Sodium (137-145) mmol/L Potassium (3.5-5.1) mmol/L Chloride (98-107) mmol/L Carbon Dioxide (22-30) mmol/L Anion Gap mmol/L BUN (9-20) mg/dL Creatinine (0.66-1.25) mg/dL Est GFR (CKD-EPI)AfAm (>60 ml/min/1.73 sqM) Est GFR (CKD-EPI)NonAf (>60 ml/min/1.73 sqM) Glucose (74-99) mg/dL Calcium (8.4-10.2) mg/dL Total Bilirubin (0.2-1.3) mg/dL AST (17-59) U/L ALT (21-72) U/L Alkaline Phosphatase (38-126) U/L Total Protein (6.3-8.2) g/dL Albumin (3.5-5.0) g/dL Amylase (30-110) U/L Lipase (23-300) U/L Urine Color Light Red Urine Appearance Turbid (Clear) Urine pH 6.5 (5.0-8.0) Ur Specific [place] 1.013 (1.001-1.035) Urine Protein 2+ H (Negative) Urine Glucose (UA) Negative (Negative) Urine Ketones Negative (Negative) Urine Blood Large H (Negative) Urine Nitrite Negative (Negative) Urine Bilirubin Negative (Negative) Urine Urobilinogen <2.0 (<2.0) mg/dL Ur Leukocyte Esterase Large H (Negative) Urine RBC >182 H (0-5) /hpf Urine WBC >182 H (0-5) /hpf Urine WBC Clumps Many H (None) /hpf Urine Bacteria Many H (None) /hpf Urine Mucus Rare H (None) /hpf Disposition Clinical Impression: Hemorrhagic cystitis Disposition: HOME SELF-CARE Condition: Stable Instructions: Urinary Tract Infection in Men (ED) Additional Instructions: Please return to the Emergency Department if symptoms worsen or any other concerns. Prescriptions: Ciprofloxacin HCl [Cipro] 500 mg PO Q12HR #20 tablet Is patient prescribed a controlled substance at d/c from ED?: No Referrals: Manfred Barraza MD [Primary Care Provider] - 1-2 days Jose Ordoñez MD [STAFF PHYSICIAN] - 1-2 days Time of Disposition: 13:46
[2018-03-17 14:01] VITALS: BP 142/86; PULSE 113; RESP 20; TEMP 98.1
== END 2018-03-17 14:00 | disposition home or self-care (01) ==
LOC: EEVIPCON 10:41 → EC 10:41
DX: N30.90 Cystitis, unspecified without hematuria (principal); Q05.9 Spina bifida, unspecified; G47.30 Sleep apnea, unspecified; Z99.89 Dependence on other enabling machines and devices; Z98.2 Presence of cerebrospinal fluid drainage device; Z79.899 Other long term (current) drug therapy; Z88.1 Allergy status to other antibiotic agents; Z91.040 Latex allergy status
CPT/HCPCS: 36415; 80053; 81001; 82150; 83690; 85025; 85610; 85730; 87040; 87077; 87086; 87186; 96360; 99283

== ENCOUNTER 2018-03-22 18:24 | Emergency (ER) | payer MEDICARE, OTHER ==
[2018-03-22 18:32] VITALS: RESP 18
[2018-03-22] MEDS ORDERED: SODIUM CHLORIDE 0.9% 1,000 ML IV STA (18:54)
--- NOTE | 2018-03-22 19:01 | ED ---
Male Urogenital HPI - General Chief complaint: Urogenital Stated complaint: HEMATURIA Time Seen by Provider: 03/22/18 18:46 Source: family, RN notes reviewed Mode of arrival: wheelchair Limitations: no limitations - History of Present Illness Initial comments: This is a 22-year-old male who presents to the emergency department with chief complaint of hematuria. Patient has many chronic medical issues including spina bifida. Patient has to be straight cathed daily for years. Patient's mother states that she noticed blood in patient's urine 5 days ago. She states that he was evaluated here in the emergency department and diagnosed with hemorrhagic cystitis. Patient was placed on Cipro. Culture revealed that patient was not susceptible to Cipro so was started on Ceftin. He has been on this for the past 3 days. Mother states that she has not noticed any improvement in the blood was in patient's urine. She states that he is now throwing clots. Mother does report a history of kidney stones and acute renal failure. Patient complains of some burning with urination but denies any significant abdominal pain, nausea or vomiting, diarrhea or constipation. Mother does state the patient did have an elevated temperature 100.5 earlier today. Patient denies flank pain. Patient is seen by the [facility] , however mother has been unable to set up an appointment recently. - Related Data Home Medications Medication Instructions Recorded Confirmed Oxybutynin Chloride [Ditropan XL] 15 mg PO QAM 06/22/14 03/22/18 Losartan [Cozaar] 25 mg PO DAILY 03/17/18 03/22/18 Cefuroxime Axetil [Ceftin] 500 mg PO BID 03/22/18 03/22/18 Allergies Allergy/AdvReac Type Severity Reaction Status Date / Time Latex, Natural Rubber Allergy Rash/Hives Verified 03/22/18 20:36 nitrofurantoin Allergy Rash/Hives Verified 03/22/18 20:36 macrocrystalline [From Macrodantin] Review of Systems ROS Statement: Those systems with pertinent positive or pertinent negative responses have been documented in the HPI. ROS Other: All systems not noted in ROS Statement are negative. Past Medical History Past Medical History: Neurologic Disorder, Seizure Disorder, Sleep Apnea/CPAP/ BIPAP Additional Past Medical History / Comment(s): spina bifida, mentally impaired, mom straight caths pt, past hx renal failure, hx of UTI's w/sepsis in Aug & sep 2013 History of Any Multi-Drug Resistant Organisms: None Reported Past Surgical History: Back Surgery, Tonsillectomy Additional Past Surgical History / Comment(s): [employer] shunt w/several revisions, back surg. 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 right uretral reimplantation, cervical fusion, cystoscopy with double-J stent left [id number] Past Anesthesia/Blood Transfusion Reactions: No Reported Reaction Past Psychological History: No Psychological Hx Reported Smoking Status: Never smoker Past Alcohol Use History: None Reported Past Drug Use History: None Reported - Past Family History Brother(s) Family Medical History: Seizure Disorder Father Family Medical History: Myocardial Infarction ([place]) Additional Family Medical History / Comment(s): Father of heart attack in 2015 General Exam - General Exam Comments Initial Comments: General: Awake and alert, well-developed; in no apparent distress. Upon entering the room, mother is straight cathing patient who appears comfortable on ED stretcher. Urine does appear red in color and there are clots noted within the catheter. HEENT: Head atraumatic, normocephalic. Pupils are equal, round and reactive to light. Extraocular movements intact. Oropharynx moist without erythema or exudate. Neck: Supple. Normal ROM. Cardiovascular: Regular rate and rhythm. No murmurs, rubs or gallops. Chest symmetrical. Respiratory: Lungs clear to auscultation bilaterally. No wheezes, rales or rhonchi. Normal respiratory effort with no use of accessory muscles. Abdomen: Soft, non-tender, non-distended. No rigidity, rebound or guarding. Normal bowel sounds in all 4 quadrants. No CVA tenderness bilaterally. Skin: [place], warm and dry without rashes or lesions. Neurological: Alert and oriented x3. CN II-XII grossly intact. Speech is fluent and answers are appropriate. No focal neuro deficits. Limitations: no limitations Course Vital Signs 03/22/18 03/22/18 18:28 20:27 Temperature 99.2 F Pulse Rate 120 H 94 Respiratory 18 18 Rate Blood Pressure 118/79 132/102 O2 Sat by Pulse 96 98 Oximetry Medical Decision Making - Medical Decision Making This is a 22-year-old male who presents to the emergency department complaining of hematuria. Patient is straight cathed daily as he does have spina bifida. Patient has had hematuria for the past 5 days. He was placed on Cipro on March 17 but urine culture revealed that this was not susceptible. He was changed to Ceftin 3 days ago. Mother states that patient continues to have dark colored urine and blood clots. Patient denies any pain. He does state he does experience some burning with urination. Denies fevers or chills. Denies abdominal or flank pain. Patient's vital signs are stable and he is in no acute distress. He was given a dose of Rocephin while in the emergency department. Recommended continuing Ceftin and following up with urology for evaluation of hematuria. Patient will be discharged home at this time. Mother is in agreement with plan and voices understanding. All questions answered. - Lab Data Result diagrams: 03/22/18 20:00 03/22/18 20:00 Lab Results 03/22/18 03/22/18 03/22/18 Range/Units 20:00 20:00 20:00 WBC 9.9 (3.8-10.6) k/uL RBC 4.72 (4.30-5.90) m/uL Hgb 14.6 (13.0-17.5) gm/dL Hct 42.0 (39.0-53.0) % MCV 89.0 (80.0-100.0) fL MCH 31.0 (25.0-35.0) pg MCHC 34.8 (31.0-37.0) g/dL RDW 13.9 (11.5-15.5) % Plt Count 240 (150-450) k/uL Neutrophils % 76 % Lymphocytes % 16 % Monocytes % 4 % Eosinophils % 3 % Basophils % 0 % Neutrophils # 7.5 (1.3-7.7) k/uL Lymphocytes # 1.6 (1.0-4.8) k/uL Monocytes # 0.4 (0-1.0) k/uL Eosinophils # 0.3 (0-0.7) k/uL Basophils # 0.0 (0-0.2) k/uL Sodium 141 (137-145) mmol/L Potassium 3.9 (3.5-5.1) mmol/L Chloride 104 (98-107) mmol/L Carbon Dioxide 25 (22-30) mmol/L Anion Gap 12 mmol/L BUN 24 H (9-20) mg/dL Creatinine 1.20 (0.66-1.25) mg/dL Est GFR (CKD-EPI)AfAm >90 (>60 ml/min/1.73 sqM) Est GFR (CKD-EPI)NonAf 85 (>60 ml/min/1.73 sqM) Glucose 119 H (74-99) mg/dL Calcium 9.3 (8.4-10.2) mg/dL Total Bilirubin 0.3 (0.2-1.3) mg/dL AST 19 (17-59) U/L ALT 44 (21-72) U/L Alkaline Phosphatase 70 (38-126) U/L Total Protein 7.3 (6.3-8.2) g/dL Albumin 4.0 (3.5-5.0) g/dL Urine Color Light Red Urine Appearance Cloudy (Clear) Urine pH 6.0 (5.0-8.0) Ur Specific [place] 1.015 (1.001-1.035) Urine Protein 1+ H (Negative) Urine Glucose (UA) Negative (Negative) Urine Ketones Negative (Negative) Urine Blood Large H (Negative) Urine Nitrite Negative (Negative) Urine Bilirubin Negative (Negative) Urine Urobilinogen <2.0 (<2.0) mg/dL Ur Leukocyte Esterase Large H (Negative) Urine RBC >182 H (0-5) /hpf Urine WBC >182 H (0-5) /hpf Urine WBC Clumps Moderate H (None) /hpf Disposition Clinical Impression: Hemorrhagic cystitis Disposition: HOME SELF-CARE Condition: Good Instructions: Urinary Tract Infection in Men (ED) Additional Instructions: Please continue taking the Ceftin. Please follow up with urology as soon as possible. Please follow up with primary care provider within 1-2 days. Return to emergency department if symptoms should worsen or any concerns arise. Is patient prescribed a controlled substance at d/c from ED?: No Referrals: Manfred Barraza MD [Primary Care Provider] - 1-2 days Time of Disposition: 20:59
[2018-03-22 20:12] LABS: Basophils % (A) 0 %; Eosinophils # (A) 0.3 k/uL (0-0.7); Eosinophils % (A) 3 %; HGB 14.6 gm/dL (13.0-17.5); Lymphocytes # (A) 1.6 k/uL (1.0-4.8); Lymphocytes % (A) 16 %; MCHC 34.8 g/dL (31.0-37.0); Mean Platelet Volume 6.8; Monocytes # (A) 0.4 k/uL (0-1.0); Monocytes % (A) 4 %; Neutrophils # (A) 7.5 k/uL (1.3-7.7); Neutrophils % (A) 76 %; Platelet Count 240 k/uL (150-450); RBC 4.72 m/uL (4.30-5.90); RDW 13.9 % (11.5-15.5); WBC 9.9 k/uL (3.8-10.6)
[2018-03-22 20:24] LABS: ALT 44 U/L (21-72); AST 19 U/L (17-59); Alkaline Phosphatase 70 U/L (38-126); Anion Gap 12 mmol/L; Blood Urea Nitrogen 24 mg/dL (9-20); Calcium 9.3 mg/dL (8.4-10.2); Carbon Dioxide 25 mmol/L (22-30); Chloride 104 mmol/L (98-107); Glucose 119 mg/dL (74-99); Potassium 3.9 mmol/L (3.5-5.1); Sodium 141 mmol/L (137-145); Total Bilirubin 0.3 mg/dL (0.2-1.3); Total Protein 7.3 g/dL (6.3-8.2)
[2018-03-22 20:26] LABS: Appearance,Urine Cloudy (Clear); Bilirubin,Urine Negative (Negative); Blood,Urine Large (Negative); Color,Urine Light Red; Glucose,Urine (UA) Negative (Negative); Ketones,Urine Negative (Negative); Leukocyte Esterase,Urine Large (Negative); Nitrite,Urine Negative (Negative); Protein,Urine 1+ (Negative); RBC,Urine >182 /hpf (0-5); Specific Gravity,Urine 1.015 (1.001-1.035); Urobilinogen,Urine <2.0 mg/dL (<2.0); WBC,Urine >182 /hpf (0-5)
[2018-03-22] MEDS ORDERED: cefTRIAXone IN SWFI 1,000 MG/10 ML SYRINGE IVP STA (20:52)
[2018-03-22 21:36] VITALS: BP 124/83; PULSE 99; TEMP 98
== END 2018-03-22 21:56 | disposition home or self-care (01) ==
LOC: EC 18:24
DX: N30.91 Cystitis, unspecified with hematuria (principal); Q05.9 Spina bifida, unspecified; Z87.440 Personal history of urinary (tract) infections; Z98.2 Presence of cerebrospinal fluid drainage device; Z88.1 Allergy status to other antibiotic agents; Z91.040 Latex allergy status; Z79.899 Other long term (current) drug therapy
CPT/HCPCS: 99283; 96374; 96361; 36415; 80053; 85025; 81001; 87040; 87086; J0696; 87077; 87186

== ENCOUNTER 2019-02-11 20:44 | Emergency (ER) | payer MEDICARE, OTHER ==
--- NOTE | 2019-02-11 21:40 | ED ---
Male Urogenital HPI - General Chief complaint: Urogenital Stated complaint: Blood in urine Time Seen by Provider: 02/11/19 21:01 Source: patient, family Mode of arrival: wheelchair Limitations: physical limitation - History of Present Illness Initial comments: This patient is a 23-year-old man presents with complaint of hematuria. The patient did not have any symptoms yesterday and then this morning had one episode of brownish urine. Following that his urine had red blood in it. Patient's mother states that he performs intermittent straight cath. MD Complaint: other (Hematuria) Onset/Timin -: hour(s) Radiation: none Consistency: constant Improves with: none Worsens with: none Reports: blood in urine - Related Data Home Medications Medication Instructions Recorded Confirmed Oxybutynin Chloride [Ditropan XL] 15 mg PO QAM 06/22/14 02/11/19 Losartan [Cozaar] 25 mg PO DAILY 03/17/18 02/11/19 Previous Rx's Medication Instructions Recorded Levofloxacin 750 mg PO DAILY #7 tablet 02/12/19 Allergies Allergy/AdvReac Type Severity Reaction Status Date / Time Latex, Natural Rubber Allergy Rash/Hives Verified 02/11/19 21:32 nitrofurantoin Allergy Rash/Hives Verified 02/11/19 21:32 macrocrystalline [From Macrodantin] Review of Systems ROS Statement: Those systems with pertinent positive or pertinent negative responses have been documented in the HPI. ROS Other: All systems not noted in ROS Statement are negative. Constitutional: Denies: fever, chills Respiratory: Denies: cough, dyspnea Cardiovascular: Denies: chest pain, palpitations Gastrointestinal: Denies: abdominal pain, nausea, vomiting Genitourinary: Reports: hematuria. Denies: dysuria, frequency Musculoskeletal: Denies: back pain Skin: Denies: rash Past Medical History Past Medical History: Neurologic Disorder, Seizure Disorder, Sleep Apnea/CPAP/BIPAP Additional Past Medical History / Comment(s): spina bifida, mentally impaired, mom straight caths pt, past hx renal failure, hx of UTI's w/sepsis in Aug & sep 2013 History of Any Multi-Drug Resistant Organisms: None Reported Past Surgical History: Back Surgery, Tonsillectomy Additional Past Surgical History / Comment(s): CL[employer] W[employer] shunt w/several revisions, back surg. 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 right uretral reimplantation, cervical fusion, cystoscopy with double- J stent left [id number] Past Anesthesia/Blood Transfusion Reactions: No Reported Reaction Past Psychological History: No Psychological Hx Reported Smoking Status: Never smoker Past Alcohol Use History: None Reported Past Drug Use History: None Reported - Past Family History Brother(s) Family Medical History: Seizure Disorder Father Family Medical History: Myocardial Infarction ([place]) Additional Family Medical History / Comment(s): Father of heart attack in 2015 General Exam Limitations: physical limitation General appearance: alert, in no apparent distress Head exam: Present: atraumatic, normocephalic Eye exam: Present: normal appearance. Absent: scleral icterus, conjunctival injection Neck exam: Present: normal inspection Respiratory exam: Present: normal lung sounds bilaterally. Absent: respiratory distress, wheezes, rales, rhonchi, stridor Cardiovascular Exam: Present: regular rate, normal rhythm, normal heart sounds. Absent: systolic murmur, diastolic murmur, rubs, gallop GI/Abdominal exam: Present: soft. Absent: distended, tenderness, guarding, rebound, rigid, mass Back exam: Present: normal inspection. Absent: CVA tenderness (R), CVA tenderness (L) Neurological exam: Present: alert Skin exam: Present: warm, dry, intact, normal color. Absent: rash Course Vital Signs 02/11/19 02/11/19 02/12/19 20:51 22:53 00:35 Temperature 97.7 F 98.1 F Pulse Rate 84 96 67 Respiratory 18 18 19 Rate Blood Pressure 139/88 126/92 107/51 O2 Sat by Pulse 97 98 96 Oximetry Medical Decision Making - Medical Decision Making Patient is 23-year-old man presenting with hematuria, and found to have urinary tract infection. Additional history reveals he did have some occasional twinges of right flank pain, and for this reason computed tomography scan obtained in order to rule out infected kidney stone. There is no evidence of current hydronephrosis. The patient is started on antibiotic coverage here. Discussed further care and patient feeling well enough to go home. We'll continue antibiotics and have close follow-up. Discussed return parameters. - Lab Data Result diagrams: 02/11/19 22:30 02/11/19 22:30 Lab Results 02/11/19 02/11/19 02/11/19 Range/Units 22:10 22:30 22:30 WBC 8.0 (3.8-10.6) k/uL RBC 4.78 (4.30-5.90) m/uL Hgb 14.1 (13.0-17.5) gm/dL Hct 42.0 (39.0-53.0) % MCV 88.0 (80.0-100.0) fL MCH 29.5 (25.0-35.0) pg MCHC 33.5 (31.0-37.0) g/dL RDW 13.5 (11.5-15.5) % Plt Count 205 (150-450) k/uL Neutrophils % 70 % Lymphocytes % 20 % Monocytes % 5 % Eosinophils % 3 % Basophils % 1 % Neutrophils # 5.6 (1.3-7.7) k/uL Lymphocytes # 1.6 (1.0-4.8) k/uL Monocytes # 0.4 (0-1.0) k/uL Eosinophils # 0.2 (0-0.7) k/uL Basophils # 0.1 (0-0.2) k/uL Sodium 141 (137-145) mmol/L Potassium 4.1 (3.5-5.1) mmol/L Chloride 107 (98-107) mmol/L Carbon Dioxide 25 (22-30) mmol/L Anion Gap 9 mmol/L BUN 28 H (9-20) mg/dL Creatinine 0.98 (0.66-1.25) mg/dL Est GFR (CKD-EPI)AfAm >90 (>60 ml/min/1.73 sqM) Est GFR (CKD-EPI)NonAf >90 (>60 ml/min/1.73 sqM) Glucose 106 H (74-99) mg/dL Calcium 9.6 (8.4-10.2) mg/dL Urine Color Light [place] Urine Appearance Cloudy (Clear) Urine pH 8.5 H (5.0-8.0) Ur Specific [place] 1.012 (1.001-1.035) Urine Protein 2+ H (Negative) Urine Glucose (UA) Negative (Negative) Urine Ketones Negative (Negative) Urine Blood Large H (Negative) Urine Nitrite Positive (Negative) Urine Bilirubin Negative (Negative) Urine Urobilinogen <2.0 (<2.0) mg/dL Ur Leukocyte Esterase Large H (Negative) Urine RBC >182 H (0-5) /hpf Urine WBC >182 H (0-5) /hpf Urine WBC Clumps Many H (None) /hpf Urine Bacteria Rare H (None) /hpf Urine Mucus Rare H (None) /hpf Disposition Clinical Impression: UTI (urinary tract infection) Disposition: HOME SELF-CARE Condition: Good Instructions (If sedation given, give patient instructions): Urinary Tract Infection in Men (ED) Prescriptions: Levofloxacin 750 mg PO DAILY #7 tablet Is patient prescribed a controlled substance at d/c from ED?: No Referrals: Manfred Barraza MD [Primary Care Provider] - 1-2 days
[2019-02-11 22:24] LABS: Appearance,Urine Cloudy (Clear); Bacteria,Urine Rare /hpf; Bilirubin,Urine Negative (Negative); Blood,Urine Large (Negative); Color,Urine Light Orange; Glucose,Urine (UA) Negative (Negative); Ketones,Urine Negative (Negative); Leukocyte Esterase,Urine Large (Negative); Mucus,Urine Rare /hpf; Nitrite,Urine Positive (Negative); PH, Urine 8.5 (5.0-8.0); Protein,Urine 2+ (Negative); RBC,Urine >182 /hpf (0-5); Specific Gravity,Urine 1.012 (1.001-1.035); Urobilinogen,Urine <2.0 mg/dL (<2.0)
[2019-02-11 22:45] LABS: Basophils # (A) 0.1 k/uL (0-0.2); Basophils % (A) 1 %; Eosinophils # (A) 0.2 k/uL (0-0.7); Eosinophils % (A) 3 %; HGB 14.1 gm/dL (13.0-17.5); Lymphocytes # (A) 1.6 k/uL (1.0-4.8); Lymphocytes % (A) 20 %; MCH 29.5 pg (25.0-35.0); MCHC 33.5 g/dL (31.0-37.0); Mean Platelet Volume 6.9; Monocytes # (A) 0.4 k/uL (0-1.0); Monocytes % (A) 5 %; Neutrophils # (A) 5.6 k/uL (1.3-7.7); Neutrophils % (A) 70 %; Platelet Count 205 k/uL (150-450); RBC 4.78 m/uL (4.30-5.90); RDW 13.5 % (11.5-15.5)
[2019-02-11 22:49] LABS: Anion Gap 9 mmol/L; Blood Urea Nitrogen 28 mg/dL (9-20); Calcium 9.6 mg/dL (8.4-10.2); Carbon Dioxide 25 mmol/L (22-30); Chloride 107 mmol/L (98-107); Glucose 106 mg/dL (74-99); Potassium 4.1 mmol/L (3.5-5.1); Sodium 141 mmol/L (137-145)
[2019-02-11] MEDS ORDERED: LEVOFLOXACIN 750 MG TAB PO STA (23:10)
--- NOTE | 2019-02-11 23:55 | CT ---
EXAM: CT Abdomen and Pelvis Without Intravenous Contrast CLINICAL HISTORY: Hematuria TECHNIQUE: Axial computed tomography images of the abdomen and pelvis without intravenous contrast. DLP is 1284 mGy-cm. This CT exam was performed using one or more of the following dose reduction techniques: automated exposure control, adjustment of the mA and/or kV according to patient size, and/or use of iterative reconstruction technique. Coronally and sagittal reconstructions are performed. COMPARISON: 11/17/16 FINDINGS: Artifacts: Scattering artifact related to patient's large body habitus decreases the sensitivity of this exam. Lung bases: Unremarkable. No mass. No consolidation. Heart: Mild to moderate cardiomegaly. ABDOMEN: Liver: Unremarkable. Gallbladder and bile ducts: Gallbladder is collapsed, poorly evaluated. No calcified stones. No ductal dilation. Pancreas: Unremarkable. No ductal dilation. Spleen: Unremarkable. No splenomegaly. Adrenals: Unremarkable. No mass. Kidneys and ureters: Left kidney has nonobstructing cortical calcifications, increased in size and number. The largest measures about 9 mm. No obstructive uropathy. Non obstructing right renal stones are unchanged. Each kidney has cortical irregularity and thinning, suggest prior infarction versus infection. Suspected small bilateral peripelvic renal cysts, cannot be fully characterized due to lack of IV contrast. Stomach and bowel: Large right lumbar hernia measures about 16 cm craniocaudal and 7 cm wide at its opening, containing mesenteric fat, appendix, and short segment of proximal colon. No mucosal thickening. PELVIS: Appendix: Normal caliber. Bladder: Trabeculation of urinary bladder can be due to underdistention versus muscle hypertrophy versus neurogenic bladder, similar to the prior study. Reproductive: Unremarkable as visualized. ABDOMEN and PELVIS: Intraperitoneal space: Unremarkable. No free air. No significant fluid collection. Bones/joints: Lumbar laminectomies are again noted. Mild anterior wedge compression defect at T12 and T11 are again noted. Degenerative disc disease, most prominent at T11-T12 and T12-L1, with prominent posterior disc bulge/osteophyte complex causes severe thecal sac compression, similar to prior study. Soft tissues: Lumbar paravertebral muscle atrophy. Symmetrical muscle atrophy of bilateral hips and thighs. These are unchanged Vasculature: Unremarkable. No abdominal aortic aneurysm. Lymph nodes: Unremarkable. No enlarged lymph nodes. Tubes, lines and devices: Right anterior approaching HOME THEATER EXPERT shunt tip is seen in left pelvis. IMPRESSION: 1. Left kidney has nonobstructing cortical calcifications, increased in size and number. The largest measures about 9 mm. Non obstructing right renal stones are unchanged. No obstructive uropathy. 2. No substantial change otherwise
[2019-02-12 00:37] VITALS: BP 107/51; PULSE 67; RESP 19; TEMP 98.1
== END 2019-02-12 00:35 | disposition home or self-care (01) ==
LOC: EC 20:44
DX: N39.0 Urinary tract infection, site not specified (principal); Q05.9 Spina bifida, unspecified; G47.30 Sleep apnea, unspecified; Z88.1 Allergy status to other antibiotic agents; Z91.040 Latex allergy status; Z79.899 Other long term (current) drug therapy; Z98.2 Presence of cerebrospinal fluid drainage device; Z87.448 Personal history of other diseases of urinary system; Z96.0 Presence of urogenital implants; Z99.89 Dependence on other enabling machines and devices
CPT/HCPCS: 36415; 74176; 80048; 81001; 85025; 87077; 87086; 87186; 99284

== ENCOUNTER 2019-11-04 06:59 | Inpatient (IN) | payer MEDICARE, OTHER ==
--- NOTE | 2019-11-04 07:09 | ED ---
General Adult HPI - General Stated complaint: Flank pain Time Seen by Provider: 11/04/19 07:05 Source: patient, family, RN notes reviewed, old records reviewed - History of Present Illness Initial comments: This is a 24-year-old male whose past history of seizures and a neurological disorder. Patient and father both give the history. According to the patient he woke up this morning and had pain in the right lower quadrant. Mom was on the phone and she agreed that it did hurt there but he has high pain tolerance. Patient is not a great historian and mom states he has a high pain tolerance and doesn't always tell exactly where his pain. There was no fevers or chills was no vomiting or diarrhea. Mom states the patient has a history of kidney stones. There is no hematuria that was noted. Patient has no lightheadedness or dizziness. Patient did not complain of any chest pain difficulty breathing or cough patient has no movement or sensation from the waist down according to mom he does have sensation in the lower abdomen - Related Data Home Medications Medication Instructions Recorded Confirmed Oxybutynin Chloride [Ditropan XL] 15 mg PO QAM 06/22/14 11/04/19 Losartan [Cozaar] 25 mg PO DAILY 03/17/18 11/04/19 Allergies Allergy/AdvReac Type Severity Reaction Status Date / Time Latex, Natural Rubber Allergy Rash/Hives Verified 11/04/19 08:52 nitrofurantoin Allergy Rash/Hives Verified 11/04/19 08:52 macrocrystalline [From Macrodantin] Review of Systems ROS Statement: Those systems with pertinent positive or pertinent negative responses have been documented in the HPI. ROS Other: All systems not noted in ROS Statement are negative. 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 right uretral reimplantation, cervical fusion, cystoscopy with double- J stent left /2017 Past Anesthesia/Blood Transfusion Reactions: No Reported Reaction Past Psychological History: No Psychological Hx Reported Smoking Status: Never smoker Past Alcohol Use History: None Reported Past Drug Use History: None Reported - Past Family History Brother(s) Family Medical History: Seizure Disorder Father Family Medical History: Myocardial Infarction ([place]) Additional Family Medical History / Comment(s): Father of heart attack in 2015 General Exam - General Exam Comments Initial Comments: GENERAL: Patient is well-developed and well-nourished. Patient is nontoxic and well- hydrated and is in mild distress. ENT: Neck is soft and supple. No significant lymphadenopathy is noted. Oropharynx is clear. Moist mucous membranes. Neck has full range of motion without eliciting any pain. EYES: The sclera were anicteric and conjunctiva were pink and moist. Extraocular movements were intact and pupils were equal round and reactive to light. Eyelids were unremarkable. PULMONARY: Unlabored respirations. Good breath sounds bilaterally. No audible rales rhonchi or wheezing was noted. CARDIOVASCULAR: There is a regular rate and rhythm without any murmurs gallops or rubs. ABDOMEN: Soft and nontender with normal bowel sounds. Currently on palpation the patient has no pain to palpation but is a very high pain tolerance and he might not say anything even if it does hurt. SKIN: Skin is clear with no lesions or rashes and otherwise unremarkable. NEUROLOGIC: Patient is alert and oriented at his baseline according to dad. Cranial nerves II through XII are grossly intact. Patient is unable to move his legs or have any sensation below the waist. MUSCULOSKELETAL: Upper extremities move without problem and full range of motion however the lower extremities do not move. LYMPHATICS: No significant lymphadenopathy is noted PSYCHIATRIC: Normal psychiatric evaluation. Course Vital Signs 11/04/19 11/04/19 07:01 08:55 Temperature 97.8 F Pulse Rate 105 H 85 Respiratory 19 Rate Blood Pressure 124/98 O2 Sat by Pulse 96 99 Oximetry Medical Decision Making - Medical Decision Making Computed tomography scan showed no acute abnormality. Patient's urine showed a urinary tract infection. I spoke with the mother the mother states in the past but has had urinary tract infections the only antibiotics are typically IV antibiotics are helpful and he always has to get admitted until the cultures come back and he sees infectious disease. I spoke with [facility] agreed to admit the patient admitted the patient wrote admitting orders. - Lab Data Result diagrams: 11/04/19 07:46 11/04/19 07:46 Lab Results 11/04/19 11/04/19 11/04/19 Range/Units 07:46 07:46 08:30 WBC 7.9 (3.8-10.6) k/uL RBC 4.71 (4.30-5.90) m/uL Hgb 14.8 (13.0-17.5) gm/dL Hct 42.6 (39.0-53.0) % MCV 90.6 (80.0-100.0) fL MCH 31.5 (25.0-35.0) pg MCHC 34.8 (31.0-37.0) g/dL RDW 13.2 (11.5-15.5) % Plt Count 176 (150-450) k/uL Neutrophils % 73 % Lymphocytes % 12 % Monocytes % 8 % Eosinophils % 3 % Basophils % 2 % Neutrophils # 5.7 (1.3-7.7) k/uL Lymphocytes # 1.0 (1.0-4.8) k/uL Monocytes # 0.6 (0-1.0) k/uL Eosinophils # 0.2 (0-0.7) k/uL Basophils # 0.2 (0-0.2) k/uL Sodium 137 (137-145) mmol/L Potassium 5.0 (3.5-5.1) mmol/L Chloride 105 (98-107) mmol/L Carbon Dioxide 22 (22-30) mmol/L Anion Gap 10 mmol/L BUN 23 H (9-20) mg/dL Creatinine 0.85 (0.66-1.25) mg/dL Est GFR (CKD-EPI)AfAm >90 (>60 ml/min/1.73 sqM) Est GFR (CKD-EPI)NonAf >90 (>60 ml/min/1.73 sqM) Glucose 102 H (74-99) mg/dL Calcium 9.2 (8.4-10.2) mg/dL Total Bilirubin 0.6 (0.2-1.3) mg/dL AST 26 (17-59) U/L ALT 23 (4-49) U/L Alkaline Phosphatase 72 (38-126) U/L Total Protein 7.4 (6.3-8.2) g/dL Albumin 4.2 (3.5-5.0) g/dL Amylase 49 (30-110) U/L Lipase 68 (23-300) U/L Urine Color Light Yellow Urine Appearance Turbid (Clear) Urine pH 6.5 (5.0-8.0) Ur Specific [place] 1.024 (1.001-1.035) Urine Protein 2+ H (Negative) Urine Glucose (UA) Negative (Negative) Urine Ketones Negative (Negative) Urine Blood Small H (Negative) Urine Nitrite Positive (Negative) Urine Bilirubin Negative (Negative) Urine Urobilinogen <2.0 (<2.0) mg/dL Ur Leukocyte Esterase Negative (Negative) Urine RBC 18 H (0-5) /hpf Urine WBC >182 H (0-5) /hpf Urine WBC Clumps Many H (None) /hpf Urine Bacteria Few H (None) /hpf Urine Mucus Rare H (None) /hpf Disposition Clinical Impression: Urinary tract infection Disposition: ADMITTED IP TO THIS HOSP Referrals: Manfred Valdes MD [REFERRING] - 1-2 days Time of Disposition: 09:33
[2019-11-04 08:16] LABS: Basophils # (A) 0.2 k/uL (0-0.2); Basophils % (A) 2 %; Eosinophils # (A) 0.2 k/uL (0-0.7); Eosinophils % (A) 3 %; HCT 42.6 % (39.0-53.0); HGB 14.8 gm/dL (13.0-17.5); Lymphocytes % (A) 12 %; MCH 31.5 pg (25.0-35.0); MCHC 34.8 g/dL (31.0-37.0); MCV 90.6 fL (80.0-100.0); Mean Platelet Volume 9.2; Monocytes # (A) 0.6 k/uL (0-1.0); Monocytes % (A) 8 %; Neutrophils # (A) 5.7 k/uL (1.3-7.7); Neutrophils % (A) 73 %; Platelet Count 176 k/uL (150-450); RBC 4.71 m/uL (4.30-5.90); RDW 13.2 % (11.5-15.5); WBC 7.9 k/uL (3.8-10.6)
--- NOTE | 2019-11-04 08:39 | CT ---
EXAMINATION TYPE: CT abdomen pelvis w con DATE OF EXAM: 11/04/2019 COMPARISON: 02/11/2019 INDICATION: Abdominal pain DLP: 2930.9 mGycm, Automated exposure control for dose reduction was used. CONTRAST: 100 mL of Isovue 300. Study performed without Oral Contrast TECHNIQUE: Axial images were obtained from above the diaphragm to the pubic rami in the axial plane a t 5 mm thick sections. Reconstructed images are reviewed on the computer in the coronal plane. FINDINGS: The shunt catheter transverses the [id number] with the tip in the pelvis. Limited CT sections are obtained the lung bases. The lung bases are clear. CT ABDOMEN: Liver: Normal Spleen: Normal Pancreas: Normal Adrenal glands: The adrenal glands are normal. Gallbladder: Normal Kidneys: The kidneys are lobulated. There are some calcifications without obstruction at the inferior pole left kidney. The larger measures 0.4 cm transverse. The cortical calcification anteriorly at th e inferior pole measures 0.3 cm. No hydronephrosis is present. A few small renal cysts are present. Delayed images were obtained through the kidneys, which remain unremarkable. Aorta: Normal Inferior vena cava: Normal. CT PELVIS: There is a right posterior lateral pelvic wall herniation. No mesenteric fat and the appen tarah are within this region. Colon extends partially into the opening. No evidence of obstruction is e vident Loops of bowel within the abdomen and pelvis are normal. Studies performed without oral contrast limiting bowel evaluation. Appendix: Normal as visualized. Urinary bladder: May be some wall thickening. Correlate for cystitis. This could be due to incomplete distention Genitourinary structures: Prostate appears unremarkable Osseous structures: No suspicious lytic or sclerotic lesions. Some old wedge deformity at T12 is pres ent. IMPRESSIONS: 1. Lobular appearing kidneys. Renal cysts are present. Nonobstructing renal stones are present on th e left. 2. Posterior lateral right pelvic wall herniation
[2019-11-04 08:49] LABS: ALT 23 U/L (4-49); African American GFR (CKD) >90 (>60 ml/min/1.73 sqM); Albumin 4.2 g/dL (3.5-5.0); Amylase 49 U/L (30-110); Anion Gap 10 mmol/L; Blood Urea Nitrogen 23 mg/dL (9-20); Calcium 9.2 mg/dL (8.4-10.2); Carbon Dioxide 22 mmol/L (22-30); Chloride 105 mmol/L (98-107); Glucose 102 mg/dL (74-99); Non-African American GFR(CKD) >90 (>60 ml/min/1.73 sqM); Sodium 137 mmol/L (137-145); Total Bilirubin 0.6 mg/dL (0.2-1.3); Total Protein 7.4 g/dL (6.3-8.2)
[2019-11-04 08:50] LABS: AST 26 U/L (17-59); Alkaline Phosphatase 72 U/L (38-126)
[2019-11-04 08:50] LABS: Appearance,Urine Turbid (Clear); Bacteria,Urine Few /hpf; Bilirubin,Urine Negative (Negative); Blood,Urine Small (Negative); Color,Urine Light Yellow; Glucose,Urine (UA) Negative (Negative); Ketones,Urine Negative (Negative); Leukocyte Esterase,Urine Negative (Negative); Mucus,Urine Rare /hpf; Nitrite,Urine Positive (Negative); PH, Urine 6.5 (5.0-8.0); Protein,Urine 2+ (Negative); RBC,Urine 18 /hpf (0-5); Specific Gravity,Urine 1.024 (1.001-1.035); Urobilinogen,Urine <2.0 mg/dL (<2.0); WBC,Urine >182 /hpf (0-5)
[2019-11-04] MEDS ORDERED: cefTRIAXone IN SWFI 1,000 MG/10 ML SYRINGE IVP STA (09:09)
[2019-11-04] MEDS ORDERED: SODIUM CHLORIDE 0.9% 1,000 ML IV ONE (09:33)
[2019-11-04] MEDS: HYDROcodone/APAP 5-325MG 1 EACH TAB PO PRN ×2 (13:42→20:09)
[2019-11-04] MEDS: LOSARTAN 25 MG TAB PO SCH (15:05)
--- NOTE | 2019-11-04 22:23 | P.CONS ---
History of Present Illness - Reason for Consult Consult date: 11/04/19 Urinary tract infection Requesting physician: Ke Young - Chief Complaint Right flank pain since morning - History of Present Illness Patient is an 24-year-old male with a past medical history significant for spina bifida in this patient who did have a urinary retention requiring self-catheterization and history of renal stone the patient woke up this morning complaining of pain in his right flank area patient had been excruciating no significant radiation and no associated nausea vomiting or any diarrhea no hematuria or significant foul-smelling urine with the symptoms the patient was evaluated by the ER physician on around the patient has been afebrile he was slightly tachycardic white count has been normal the patient to have positive UA CT of abdominal pelvis was read we did shows evidence of left-sided renal stone no evidence of hydronephrosis the latter was slightly thickened with concern for cystitis patient has been diagnosed with urinary tract infection he did receive 1 dose of Rocephin in the ER subsequently admitted to the hospital for observation infection disease was consulted for further recommendation regarding antibiotic therapy Review of Systems Positive point has been mentioned in the HPI rest of the systems are negative Past Medical History Past Medical History: Neurologic Disorder, Seizure Disorder, Sleep Apnea/CPAP/BIPAP Additional Past Medical History / Comment(s): spina bifida, mentally impaired, mom straight caths pt, past hx renal failure, hx of UTI's w/sepsis in Aug & sep 2013, no cpap, questionable seizure disorder- nothing has showed up on eegs. 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 right uretral reimplantation, cervical fusion, cystoscopy with double- J stent left [id number]. open removal of kidney stones 2016, tubes in ears. Past Anesthesia/Blood Transfusion Reactions: No Reported Reaction Smoking Status: Never smoker - Past Family History Brother(s) Family Medical History: Seizure Disorder Father Family Medical History: Myocardial Infarction ([place]) Additional Family Medical History / Comment(s): Father of heart attack in 2015 Medications and Allergies Home Medications Medication Instructions Recorded Confirmed Type Oxybutynin Chloride [Ditropan XL] 15 mg PO QAM 06/22/14 11/04/19 History Losartan [Cozaar] 25 mg PO DAILY 03/17/18 11/04/19 History Allergies Allergy/AdvReac Type Severity Reaction Status Date / Time Latex, Natural Rubber Allergy Rash/Hives Verified 11/04/19 08:52 nitrofurantoin Allergy Rash/Hives Verified 11/04/19 08:52 macrocrystalline [From Macrodantin] Physical Exam Vitals: Vital Signs Temp Pulse Pulse Resp BP BP Pulse Ox 11/04/19 19:32 99.0 F 110 H 18 128/72 96 11/04/19 16:00 98.7 F 79 114/65 97 11/04/19 15:55 112 H 16 11/04/19 12:00 112 H 16 11/04/19 11:07 112 H 16 11/04/19 10:25 97.7 F 112 H 16 122/87 99 11/04/19 09:58 98.5 F 105 H 18 140/95 100 11/04/19 08:55 85 99 11/04/19 07:01 97.8 F 105 H 19 124/98 96 Intake and Output 11/04/19 11/04/19 11/04/19 06:59 14:59 22:59 Other: Voiding Method Self-Catheterization Self-Catheterization # Voids 1 Weight 136.078 kg GENERAL DESCRIPTION: Middle-aged male lying in bed, no distress. No tachypnea or accessory muscle of respiration use. HEENT: Shows Pallor , no scleral icterus. Oral mucous membrane is dry. No pharyngeal erythema or thrush NECK: Trachea central, no thyromegaly. LUNGS: Unlabored breathing. Clear to auscultation anteriorly. No wheeze or crackle. HEART: S1, S2, regular rate and rhythm. No loud murmur ABDOMEN: Soft, no tenderness , guarding or rigidity, no organomegaly EXTREMITIES: No edema of feet. SKIN: No rash, no masses palpable. NEUROLOGICAL: The patient is awake, alert, oriented x3, mood and affect normal. Results CBC & Chem 7: 11/04/19 07:46 11/04/19 07:46 Labs: Abnormal Lab Results - Last 24 Hours (Table) 11/04/19 11/04/19 Range/Units 07:46 08:30 BUN 23 H (9-20) mg/dL Glucose 102 H (74-99) mg/dL Urine Protein 2+ H (Negative) Urine Blood Small H (Negative) Urine RBC 18 H (0-5) /hpf Urine WBC >182 H (0-5) /hpf Urine WBC Clumps Many H (None) /hpf Urine Bacteria Few H (None) /hpf Urine Mucus Rare H (None) /hpf Microbiology - Last 24 Hours (Table) 11/04/19 08:30 Urine Culture - Preliminary Urine,Voided Assessment and Plan Assessment: 1-patient admitted hospital with flank pain in this patient did have history of kidney stones though CT did show some bladder wall thickening but no hydronephrosis patient to have a risk factor for self-catheterization for urinary retention and did have a positive UA underlying urinary tract infection from enteric gram-negative pathogen not entirely excluded (1) Acute UTI Current Visit: No Status: Acute Code(s): N39.0 - URINARY TRACT INFECTION, SITE NOT SPECIFIED SNOMED Code(s): 348185814 Plan: 1-Rocephin 2 g IV piggyback daily 2-gentle IV fluid We will follow on clinical condition and cultures to further adjust medication if needed Thank you for this consultation will follow this patient with you Time with Patient: Greater than 30
--- NOTE | 2019-11-04 23:37 | P.HPIM ---
History of Present Illness H&P Date: 11/04/19 Chief Complaint: Right flank pain Patient is a 23-year-old male with a known history of spina bifida, mentally impaired, neurogenic bladder straight catheterization at home, seizure disorder, upset to sleep apnea not on CPAP and other multiple medical problems came to ER with complaints of abdominal pain mainly right lower quadrant and flank pain started this morning. According to his mother at bedside patient is usually has high pain tolerance. And has been complaining of abdominal pain since morning. No fever no chills. No nausea vomiting or diarrhea. Patient does have history of renal stones. Denied any dysuria or hematuria. Patient is on straight catheterization at home. No cough or sputum production. No chest pain or shortness of breath. Patient is a poor historian and most the history was taken from the medical records and his family at bedside. Patient is mostly bedridden and could not feel below the upper thighs. CT abdomen and pelvis was done which showed lobular appearing kidneys. Renal cysts are present nonobstructing renal stones present on the left. Posterior lateral right pelvic wall herniation. Review of Systems Constitutional: Patient denies any fever or chills . No generalized weakness or weight loss. Abdomen: Patient denied nausea vomiting and diarrhea and abdominal pain. Cardiovascular: Patient denies any chest pain or short of breath no palpitations. Respiratory: patient denied any cough is from production. No shortness of breath Neurologic: Patient denied any numbness or tingling headache. Complete review of systems could not be obtained from the patient. Past Medical History Past Medical History: Neurologic Disorder, Seizure Disorder, Sleep Apnea/CPAP/BIPAP Additional Past Medical History / Comment(s): spina bifida, mentally impaired, mom straight caths pt, past hx renal failure, hx of UTI's w/sepsis in Aug & sep 2013, no cpap, questionable seizure disorder- nothing has showed up on eegs. 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 right uretral reimplantation, cervical fusion, cystoscopy with double- J stent left [id number]. open removal of kidney stones 2016, tubes in ears. Past Anesthesia/Blood Transfusion Reactions: No Reported Reaction Past Psychological History: No Psychological Hx Reported Additional Psychological History / Comment(s): Single cared for in the family's home by family and caregivers. No history of tobacco or alcohol use. No international travel. No animal exposures. No experience Smoking Status: Never smoker Past Alcohol Use History: None Reported Additional Past Alcohol Use History / Comment(s): Patient lives at home with his mother. He goes to school during the day and a pitch worker cares for him from the time he gets home from school until his mom gets home from work. Past Drug Use History: None Reported - Past Family History Brother(s) Family Medical History: Seizure Disorder Father Family Medical History: Myocardial Infarction ([place]) Additional Family Medical History / Comment(s): Father of heart attack in 2015 Medications and Allergies Home Medications Medication Instructions Recorded Confirmed Type Oxybutynin Chloride [Ditropan XL] 15 mg PO QAM 06/22/14 11/04/19 History Losartan [Cozaar] 25 mg PO DAILY 03/17/18 11/04/19 History Allergies Allergy/AdvReac Type Severity Reaction Status Date / Time Latex, Natural Rubber Allergy Rash/Hives Verified 11/04/19 08:52 nitrofurantoin Allergy Rash/Hives Verified 11/04/19 08:52 macrocrystalline [From Macrodantin] Physical Exam Vitals: Vital Signs Temp Pulse Pulse Resp BP BP Pulse Ox 11/04/19 12:00 112 H 16 11/04/19 11:07 112 H 16 11/04/19 10:25 97.7 F 112 H 16 122/87 99 11/04/19 09:58 98.5 F 105 H 18 140/95 100 11/04/19 08:55 85 99 11/04/19 07:01 97.8 F 105 H 19 124/98 96 Intake and Output 11/03/19 11/04/19 11/04/19 22:59 06:59 14:59 Other: Voiding Method Self-Catheterization Weight 136.078 kg PHYSICAL EXAMINATION: Patient is lying in the bed comfortably, no acute distress, awake alert and oriented. Morbidly obese.. HEENT: Normocephalic. Neck is supple. Pupils reactive. Nostrils clear. Oral cavity is moist. Ears reveal no drainage. Neck reveals no JVD, carotid bruits, or thyromegaly. CHEST EXAMINATION: Trachea is central. Symmetrical expansion. Lung leija clear to auscultation and percussion. CARDIAC: Normal S1, S2 with no gallops. No murmurs ABDOMEN: Soft. Right lower quadrant tenderness. Bowel sounds normal. No organomegaly. No abdominal bruits. Extremities: reveal no edema. No clubbing or cyanosis Neurologically awake, alert, oriented x2 with well-coordinated movements. Paraplegic. Skin: No rash or skin lesions. Psychiatric: Coperative. Could not be assessed completely. Musculoskeletal: No joint swelling or deformity. Normal range of motion. Results CBC & Chem 7: 11/04/19 07:46 11/04/19 07:46 Labs: Abnormal Lab Results - Last 24 Hours (Table) 11/04/19 11/04/19 Range/Units 07:46 08:30 BUN 23 H (9-20) mg/dL Glucose 102 H (74-99) mg/dL Urine Protein 2+ H (Negative) Urine Blood Small H (Negative) Urine RBC 18 H (0-5) /hpf Urine WBC >182 H (0-5) /hpf Urine WBC Clumps Many H (None) /hpf Urine Bacteria Few H (None) /hpf Urine Mucus Rare H (None) /hpf Thrombosis Risk Factor Assmnt - DVT/VTE Prophylaxis DVT/VTE Prophylaxis: Pharmacologic Prophylaxis ordered - Choose All That Apply Any of the Below Risk Factors Present?: Yes Each Factor Represents 1 point: Obesity (BMI >25) Other Risk Factors: No Other congenital or acquired thrombophilia - If yes, enter type in comment: No Thrombosis Risk Factor Assessment Total Risk Factor Score: 1 Thrombosis Risk Factor Assessment Level: Low Risk Assessment and Plan Assessment: Right flank pain secondary to urinary tract infection along with renal stones. Acute urinary tract infection likely related to straight catheterization. Left sided renal stones nonobstructing Spina bifida and paraplegia Morbid obesity BMI 56.7 Mentally impaired Obstructive sleep apnea not on CPAP History of cystoscopy with double-J stent left ureter 2016 Hypertension DVT prophylaxis. Plan: Patient will be continued on anti-antibiotics in form of ceftriaxone. Follow-up urine culture reports. Continue the pain management with [place]. Follow up closely. Discussed with his mother at bedside in detail. ID was consulted. Further recommendations based on the clinical course. Time with Patient: Greater than 30
[2019-11-05] MEDS: HYDROcodone/APAP 5-325MG 1 EACH TAB PO PRN ×2 (04:01→12:42)
[2019-11-05] MEDS: OXYBUTYNIN 15 MG TAB.ER.24 PO SCH (09:15)
[2019-11-05] MEDS: LOSARTAN 25 MG TAB PO SCH (12:35)
[2019-11-05] MEDS ORDERED: LACTULOSE 20 GM/30 ML CUP PO ONE (16:09)
[2019-11-05] MEDS ORDERED: DOCUSATE 100 MG CAP PO STA (16:09)
--- NOTE | 2019-11-05 16:09 | P.GSCN ---
History of Present Illness Consult date: 11/05/19 History of present illness: CHIEF COMPLAINT: Right lower quadrant abdominal pain HISTORY OF PRESENT ILLNESS: The patient is a 24 year old male with multiple medical comorbidities including congenital FINANCE BROKER shunt, seizure disorder, cognitive delay, super morbid obesity, chronic urinary tract infections with self catheterizations who comes in with over 1 day history of sharp right lower quadrant abdominal pain. He complains of right lower quadrant pain and has history of chronic constipation with spina bifida history including FINANCE BROKER shunt. Additional information is obtained from his mother where his abdominal pain has been present for at least 24 hours sharp in nature and unrelieved with home remedies. Since admission, pain has been steady. No reports of nausea and vomiting. No reports of blood in the stools. No previous appendectomies. No recent bowel movement since admission. General surgery is consulted for his abdominal pain. PAST MEDICAL HISTORY: See list. PAST SURGICAL HISTORY: See list. MEDICATIONS: See list. ALLERGIES: See list. SOCIAL HISTORY: See list. FAMILY HISTORY: See list. REVIEW OF ORGAN SYSTEMS: CONSTITUTIONAL: No fevers or chills. EYES: Denies any trouble with vision. No glasses. HEENT: No difficulties with hearing. No nosebleeds. No difficulty swallowing. RESPIRATORY: History of obstructive sleep apnea. CARDIOVASCULAR: Denies any chest pain, palpitations, or recent heart attacks. GASTROINTESTINAL: Has chronic constipation. Has gastroesophageal reflux disease. GENITOURINARY: Self catheterizations including chronic urinary tract infections. NEUROLOGICAL: History of FINANCE BROKER shunt's, multiple. Seizure disorder. MUSCULOSKELETAL: Has back pain, stiffness or joint arthritis. SKIN: No current skin cancer. No rash. PSYCHIATRIC: Denies current depression or suicidal thoughts. ENDOCRINE: Denies current thyroid disorders. Denies any blood sugar glucose intolerance. HEME/LYMPHATIC: Denies any lumps and bumps around the neck. No recent deep venous thrombosis. ALLERGY/IMMUNOLOGY: No immunoglobulin therapy. No immune deficiencies. BREAST: Denies current breast lumps, pain or nipple discharge. PHYSICAL EXAM: VITALS: Reviewed CONSTITUTIONAL: Well developed and in no acute distress. EYES: Conjuctivae without sclera icterus. Pupils are equally round and reactive to light. Extraocular movements grossly intact. HEAD, EARS, NOSE, THROAT: Moist buccal mucosa. Head is atraumatic, normocephalic. Hears conversational speech. No nasal drainage. NECK: Supple. No JV distention. RESPIRATORY: Non-labored respirations and equal bilateral excursions. No gross wheezes. CARDIOVASCULAR: Regular rate and rhythm. Extremities without moderate edema. Palpable 2+ radial pulses. ABDOMEN: Protuberant, soft, no peritonitis. Mild right lower quadrant abdominal pain with deep palpation. BACK: His symmetry along the right flank. No color changes. LYMPH: No neck lymphadenopathy. MUSCULOSKELETAL: Nail and fingers with good capillary refill. SKIN: Warm and well perfused with good skin turgor. NEUROLOGIC: Cranial nerves I through XII grossly intact. Sensation upper and extremities intact. No focal or lateralizing signs. PSYCH: Appropriate affect. Alert and oriented to person, place and time. CLINCAL LABS: Reviewed. WBC within normal limits. Urinalysis positive for nitrates. Leukocyte esterase negative. IMAGING: CT of the abdomen and pelvis independently reviewed with moderate stool burden along the cecum and ascending colon. Right lower back hernia identified from previous spina bifida surgery. RADIOLOGY: Report reviewed consistent right lumbar hernia without bowel obstruction. ASSESSMENT: 1. Right lower quadrant abdominal pain 2. Spina bifida 3. Chronic constipation 4. Right lumbar hernia 5. Chronic urinary tract infection 6. Super morbid obesity, BMI 56.7 PLAN: 1. Recommend laxatives for constipation including lactulose and Colace to address moderate stool burden along the right colon 2. Will get repeat labs including CBC for infection 3. Will repeat abdominal exam 4. Overall, no acute surgical intervention needed at this time Plan of care described to patient and family who were pleased with level of care. Thank you for this kind consultation. Past Medical History Past Medical History: Neurologic Disorder, Seizure Disorder, Sleep Apnea/CPAP/BIPAP Additional Past Medical History / Comment(s): spina bifida, mentally impaired, mom straight caths pt, past hx renal failure, hx of UTI's w/sepsis in Aug & sep 2013, no cpap, questionable seizure disorder- nothing has showed up on eegs. History of Any Multi-Drug Resistant Organisms: None Reported Past Surgical History: Back Surgery, Tonsillectomy Additional Past Surgical History / Comment(s): FINANCE BROKER shunt w/several revisions, back surg. 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 right uretral reimplantation, cervical fusion, cystoscopy with double- J stent left [id number]. open removal of kidney stones 2017, tubes in ears. Past Anesthesia/Blood Transfusion Reactions: No Reported Reaction Past Psychological History: No Psychological Hx Reported Additional Psychological History / Comment(s): Single cared for in the family's home by family and caregivers. No history of tobacco or alcohol use. No international travel. No animal exposures. No experience Smoking Status: Never smoker Past Alcohol Use History: None Reported Additional Past Alcohol Use History / Comment(s): Patient lives at home with his mother. 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 Past Drug Use History: None Reported - Past Family History Brother(s) Family Medical History: Seizure Disorder Father Family Medical History: Myocardial Infarction ([place]) Additional Family Medical History / Comment(s): Father of heart attack in 2016 Medications and Allergies Home Medications Medication Instructions Recorded Confirmed Type Oxybutynin Chloride [Ditropan XL] 15 mg PO QAM 06/22/14 11/04/19 History Losartan [Cozaar] 25 mg PO DAILY 03/17/18 11/04/19 History Allergies Allergy/AdvReac Type Severity Reaction Status Date / Time Latex, Natural Rubber Allergy Rash/Hives Verified 11/04/19 08:52 nitrofurantoin Allergy Rash/Hives Verified 11/04/19 08:52 macrocrystalline [From Macrodantin] Surgical - Exam Vital Signs Temp Pulse Resp BP Pulse Ox 97.8 F 105 H 19 124/98 96 11/04/19 07:01 11/04/19 07:01 11/04/19 07:01 11/04/19 07:01 11/04/19 07:01 Results - Labs 11/05/19 16:31 11/04/19 07:46 Microbiology - Last 24 Hours (Table) 11/04/19 08:30 Urine Culture - Preliminary Urine,Voided Gram Neg Bacilli 11/04/19 10:45 Blood Culture - Preliminary Blood No Growth after 24 hours Assessment and Plan (1) Right lower quadrant abdominal pain Current Visit: Yes Status: Acute Code(s): R10.31 - RIGHT LOWER QUADRANT PAIN SNOMED Code(s): 296472268 (2) Constipation due to neurogenic bowel Current Visit: Yes Status: Acute Code(s): K59.00 - CONSTIPATION, UNSPECIFIED SNOMED Code(s): 389884054 (3) Spina bifida Current Visit: Yes Status: Acute Code(s): Q05.9 - SPINA BIFIDA, UNSPECIFIED SNOMED Code(s): 30149232 (4) Spina bifida aperta of lumbar spine Current Visit: Yes Status: Acute Code(s): Q05.7 - LUMBAR SPINA BIFIDA WITHOUT HYDROCEPHALUS SNOMED Code(s): 152287423 (5) Lumbar hernia Current Visit: Yes Status: Acute Code(s): K45.8 - OTH ABDOMINAL HERNIA WITHOUT OBSTRUCTION OR GANGRENE SNOMED Code(s): 59030473 (6) Morbid obesity due to excess calories Current Visit: Yes Status: Acute Code(s): E66.01 - MORBID (SEVERE) OBESITY DUE TO EXCESS CALORIES SNOMED Code(s): 610715927 (7) BMI 50.0-59.9, adult Current Visit: Yes Status: Acute Code(s): Z68.43 - BODY MASS INDEX (BMI) 50.0-59.9, ADULT SNOMED Code(s): 698239881 (8) UTI (urinary tract infection) Current Visit: Yes Status: Acute Code(s): N39.0 - URINARY TRACT INFECTION, SITE NOT SPECIFIED SNOMED Code(s): 36671875
[2019-11-05 17:14] LABS: Basophils # (A) 0.2 k/uL (0-0.2); Basophils % (A) 3 %; Eosinophils # (A) 0.5 k/uL (0-0.7); Eosinophils % (A) 7 %; HCT 40.7 % (39.0-53.0); Lymphocytes # (A) 1.2 k/uL (1.0-4.8); Lymphocytes % (A) 20 %; MCH 31.6 pg (25.0-35.0); MCHC 34.3 g/dL (31.0-37.0); Mean Platelet Volume 7.5; Monocytes # (A) 0.5 k/uL (0-1.0); Monocytes % (A) 9 %; Neutrophils # (A) 3.6 k/uL (1.3-7.7); Neutrophils % (A) 59 %; Platelet Count 208 k/uL (150-450); RBC 4.42 m/uL (4.30-5.90); RDW 13.4 % (11.5-15.5); WBC 6.2 k/uL (3.8-10.6)
--- NOTE | 2019-11-05 21:43 | P.PN ---
Subjective Progress Note Date: 11/05/19 Principal diagnosis: Right lower quadrant pain Acute urinary tract infection Patient is a 23-year-old male with a known history of spina bifida, mentally impaired, neurogenic bladder straight catheterization at home, seizure disorder, upset to sleep apnea not on CPAP and other multiple medical problems came to ER with complaints of abdominal pain mainly right lower quadrant and flank pain started this morning. According to his mother at bedside patient is usually has high pain tolerance. And has been complaining of abdominal pain since morning. No fever no chills. No nausea vomiting or diarrhea. Patient does have history of renal stones. Denied any dysuria or hematuria. Patient is on straight catheterization at home. No cough or sputum production. No chest pain or shortness of breath. Patient is a poor historian and most the history was taken from the medical records and his family at bedside. Patient is mostly bedridden and could not feel below the upper thighs. CT abdomen and pelvis was done which showed lobular appearing kidneys. Renal cysts are present nonobstructing renal stones present on the left. Posterior lateral right pelvic wall herniation. 11/05/2016 Patient is currently sitting in the bed comfortably. Still complaining of right lower quadrant abdominal pain 6 out of 10. No fever no chills. No leukocytosis. No nausea vomiting or abdominal pain. Patient is being continued on and device in the form of ceftriaxone 2 g daily. ID is following. Gen. surgery was consulted due to the right lateral pelvic wall herniation. No complaints of chest pain or shortness of breath. No headache or dizziness or lightheadedness. Patient is somewhat poor historian. Current medications reviewed. Objective - Vital Signs Vital signs: Vital Signs Temp 98.1 F 11/05/19 19:39 Pulse 56 L 11/05/19 20:00 Resp 17 11/05/19 20:00 BP 126/74 11/05/19 19:39 Pulse Ox 98 11/05/19 19:39 Intake & Output 11/05/19 11/05/19 11/06/19 06:59 18:59 06:59 Intake Total 1000 Balance 1000 Intake: Oral 600 Other 400 Other: Voiding Method Self-Catheterization Self-Catheterization Self-Catheterization # Voids 1 - Exam PHYSICAL EXAMINATION: Patient is lying in the bed comfortably, no acute distress, awake alert and oriented. Morbidly obese. Mentally challenged. HEENT: Normocephalic. Neck is supple. Pupils reactive. Nostrils clear. Oral cavity is moist. Ears reveal no drainage. Neck reveals no JVD, carotid bruits, or thyromegaly. CHEST EXAMINATION: Trachea is central. Symmetrical expansion. Lung leija clear to auscultation and percussion. CARDIAC: Normal S1, S2 with no gallops. No murmurs ABDOMEN: Soft. Right lower quadrant tenderness. Bowel sounds normal. No organomegaly. No abdominal bruits. Extremities: reveal no edema. No clubbing or cyanosis Neurologically awake, alert, oriented x2 with well-coordinated movements. Paraplegic. Skin: No rash or skin lesions. Psychiatric: Coperative. Could not be assessed completely. Musculoskeletal: No joint swelling or deformity. Normal range of motion. - Labs CBC & Chem 7: 11/05/19 16:31 11/04/19 07:46 Labs: Microbiology - Last 24 Hours (Table) 11/04/19 08:30 Urine Culture - Preliminary Urine,Voided Gram Neg Bacilli 11/04/19 10:45 Blood Culture - Preliminary Blood No Growth after 24 hours Assessment and Plan Assessment: Right flank pain secondary to urinary tract infection along with renal stones. Acute urinary tract infection likely related to straight catheterization. Left sided renal stones nonobstructing Spina bifida and paraplegia Morbid obesity BMI 56.7 Mentally impaired Obstructive sleep apnea not on CPAP History of cystoscopy with double-J stent left ureter 2016 Hypertension DVT prophylaxis. Plan: Patient will be continued on anti-antibiotics in form of ceftriaxone. Follow-up urine culture reports. Continue the pain management with [place]. Follow up closely. Discussed with his mother at bedside in detail. ID and general surgery is following. Further recommendations based on the clinical course. Time with Patient: Greater than 30
--- NOTE | 2019-11-06 01:25 | PN ---
PROGRESS NOTE DATE OF SERVICE: 11/05/2019 REASON FOR FOLLOWUP: Urinary tract infection. INTERVAL HISTORY: The patient is currently afebrile, has been breathing comfortably. The patient ( ). Abdominal pain has slightly decreased in intensity. No nausea, no vomiting. No chest pain, shortness of breath or cough. No diarrhea. PHYSICAL EXAMINATION: Blood pressure is 126/74 with a pulse of 56, temperature 98.1. He is 98% on room air. General description is a middle-aged male lying in bed in no distress. Respiratory system: Unlabored breathing. clear to auscultation anteriorly. Heart S1, S2. Regular rate and rhythm. Abdomen soft, no tenderness. LABS: Blood culture negative. White count 6.2. Urine showing a gram-negative bacilli. DIAGNOSTIC IMPRESSION AND PLAN: Patient admitted to hospital, this patient who did have spina bifida and urinary retention requiring several admission and a positive UA with concern for urinary tract infection. The patient is currently covered with Rocephin. Adjust antibiotic further based on the culture report. Continue supportive care. MMODL / IJN: [id number] /
[2019-11-06] MEDS: LOSARTAN 25 MG TAB PO SCH (09:14)
[2019-11-06] MEDS: OXYBUTYNIN 15 MG TAB.ER.24 PO SCH (09:14)
[2019-11-06] MEDS: POLYETHYLENE GLYCOL 3350 17 GM POWD.PACK PO SCH (09:15)
[2019-11-06] MEDS: ACETAMINOPHEN TAB 325 MG TAB PO PRN (09:48)
[2019-11-06] MEDS ORDERED: MAGNESIUM HYDROXIDE 2,400 MG/10 ML CUP PO PRN (13:37)
--- NOTE | 2019-11-06 13:40 | P.PN ---
Subjective Progress Note Date: 11/06/19 CHIEF COMPLAINT: Right lower quadrant abdominal pain HISTORY OF PRESENT ILLNESS: The patient is a 24 year old male with multiple medical comorbidities including congenital APPLIED MATHEMATICIAN shunt, seizure disorder, cognitive delay, super morbid obesity, chronic urinary tract infections who presented with right lower quadrant abdominal pain. He had been started on laxatives including cathartics. No bowel movements. His right lower quadrant pain is improving. REVIEW OF ORGAN SYSTEMS: No fevers or chills. No bowel movements. He has cognitive delay PHYSICAL EXAM: VITALS: Reviewed CONSTITUTIONAL: Well developed and in no acute distress. EYES: Conjuctivae without sclera icterus. Pupils are equally round and reactive to light. Extraocular movements grossly intact. HEAD, EARS, NOSE, THROAT: Moist buccal mucosa. Head is atraumatic, normocephalic. Hears conversational speech. No nasal drainage. RESPIRATORY: Non-labored respirations and equal bilateral excursions. No gross wheezes. CARDIOVASCULAR: Regular rate and rhythm. Extremities without moderate edema. Palpable 2+ radial pulses. ABDOMEN: Protuberant, soft, no peritonitis. Mild right lower quadrant abdominal pain with deep palpation. BACK: His symmetry along the right flank. No color changes. MUSCULOSKELETAL: Nail and fingers with good capillary refill. SKIN: Warm and well perfused with good skin turgor. NEUROLOGIC: Cranial nerves I through XII grossly intact. Sensation upper and extremities intact. No focal or lateralizing signs. PSYCH: Appropriate affect. Alert and oriented to person, place and time. CLINCAL LABS: Reviewed. WBC within normal limits. CULTURES: MDR UTI ASSESSMENT: 1. Right lower quadrant abdominal pain 2. Spina bifida 3. Chronic constipation 4. Right lumbar hernia 5. Chronic urinary tract infection 6. Super morbid obesity, BMI 56.7 PLAN: 1. Additional laxatives for today 2. Abdominal pain has improved, but not resolved 3. Adjustment of antibiotic for multi-drug resistant UTI Objective - Vital Signs Vital signs: Vital Signs Temp 98.8 F 11/06/19 07:25 Pulse 110 H 11/06/19 08:00 Resp 18 11/06/19 08:00 BP 112/76 11/06/19 07:25 Pulse Ox 95 11/06/19 07:25 Intake & Output 11/05/19 11/06/19 11/06/19 18:59 06:59 18:59 Intake Total 1000 240 240 Output Total 600 Balance 1000 -360 240 Intake: Oral 600 240 240 Other 400 Output: Urine 600 Other: Voiding Method Self-Catheterization Self-Catheterization Self-Catheterization # Voids 1 - Labs CBC & Chem 7: 11/05/19 16:31 11/04/19 07:46 Labs: Microbiology - Last 24 Hours (Table) 11/04/19 08:30 Urine Culture - Preliminary Urine,Voided Gram Neg Bacilli 11/04/19 10:45 Blood Culture - Preliminary Blood No Growth after 24 hours Assessment and Plan (1) Right lower quadrant abdominal pain Current Visit: Yes Status: Acute Code(s): R10.31 - RIGHT LOWER QUADRANT PAIN SNOMED Code(s): 587274745 (2) Constipation due to neurogenic bowel Current Visit: Yes Status: Acute Code(s): K59.00 - CONSTIPATION, UNSPECIFIED SNOMED Code(s): 932044942 (3) Spina bifida Current Visit: Yes Status: Acute Code(s): Q05.9 - SPINA BIFIDA, UNSPECIFIED SNOMED Code(s): 66198779 (4) Spina bifida aperta of lumbar spine Current Visit: Yes Status: Acute Code(s): Q05.7 - LUMBAR SPINA BIFIDA WITHOUT HYDROCEPHALUS SNOMED Code(s): 253107458 (5) Lumbar hernia Current Visit: Yes Status: Acute Code(s): K45.8 - OTH ABDOMINAL HERNIA WITHOUT OBSTRUCTION OR GANGRENE SNOMED Code(s): 35969046 (6) Morbid obesity due to excess calories Current Visit: Yes Status: Acute Code(s): E66.01 - MORBID (SEVERE) OBESITY DUE TO EXCESS CALORIES SNOMED Code(s): 599497013 (7) BMI 50.0-59.9, adult Current Visit: Yes Status: Acute Code(s): Z68.43 - BODY MASS INDEX (BMI) 50.0-59.9, ADULT SNOMED Code(s): 977617984 (8) UTI (urinary tract infection) Current Visit: Yes Status: Acute Code(s): N39.0 - URINARY TRACT INFECTION, SITE NOT SPECIFIED SNOMED Code(s): 44219005
--- NOTE | 2019-11-06 14:08 | PN ---
PROGRESS NOTE DATE OF SERVICE: 11/06/2019 REASON FOR FOLLOWUP: Escherichia coli urinary tract infection. INTERVAL HISTORY: The patient is currently afebrile, has been breathing comfortably. The patient's right lower quadrant abdominal pain has improved. No nausea, vomiting. No diarrhea. The patient is constipated. PHYSICAL EXAMINATION: Blood pressure is 124/76 with a pulse of 110, temperature 98.8. He is 95% on room air. General description is a middle-aged male up in the bed in no distress. Respiratory system: Unlabored breathing, clear to auscultation. Heart S1, S2. Regular rate and rhythm. Abdomen soft, no tenderness. LABS: No new labs have been obtained today. Urine culture finalized with E coli sensitive to Rocephin. DIAGNOSTIC IMPRESSION AND PLAN: Escherichia coli urinary tract infection clinically responding to Rocephin. Patient abdominal pain has improved. Plan to finish therapy with oral Ceftin 500 mg twice a day for about a week. Continue supportive care. MMODL / IJN: [id number] /
[2019-11-06] MEDS: LACTULOSE 20 GM/30 ML CUP PO SCH ×2 (14:12→19:51)
[2019-11-06] MEDS: DOCUSATE 100 MG CAP PO SCH ×2 (14:12→19:50)
--- NOTE | 2019-11-07 00:08 | P.PN ---
Subjective Progress Note Date: 11/06/19 Principal diagnosis: Right lower quadrant pain Acute urinary tract infection Patient is a 23-year-old male with a known history of spina bifida, mentally impaired, neurogenic bladder straight catheterization at home, seizure disorder, upset to sleep apnea not on CPAP and other multiple medical problems came to ER with complaints of abdominal pain mainly right lower quadrant and flank pain started this morning. According to his mother at bedside patient is usually has high pain tolerance. And has been complaining of abdominal pain since morning. No fever no chills. No nausea vomiting or diarrhea. Patient does have history of renal stones. Denied any dysuria or hematuria. Patient is on straight catheterization at home. No cough or sputum production. No chest pain or shortness of breath. Patient is a poor historian and most the history was taken from the medical records and his family at bedside. Patient is mostly bedridden and could not feel below the upper thighs. CT abdomen and pelvis was done which showed lobular appearing kidneys. Renal cysts are present nonobstructing renal stones present on the left. Posterior lateral right pelvic wall herniation. 11/05/19 Patient is currently sitting in the bed comfortably. Still complaining of right lower quadrant abdominal pain 6 out of 10. No fever no chills. No leukocytosis. No nausea vomiting or abdominal pain. Patient is being continued on and device in the form of ceftriaxone 2 g daily. ID is following. Gen. surgery was consulted due to the right lateral pelvic wall herniation. No complaints of chest pain or shortness of breath. No headache or dizziness or lightheadedness. Patient is somewhat poor historian. 11/06/2019 Patient is still complaining of right lower quadrant abdominal pain but is improving compared to yesterday. Patient is being continued on laxatives and stool softeners. Gen. surgery is following. Patient is afebrile. Urine culture showed E. coli. Continued on ceftriaxone. No complaints of chest pain or shortness of breath. Tolerating oral diet. No other acute overnight issues. Current medications reviewed. Objective - Vital Signs Vital signs: Vital Signs Temp 98.7 F 11/06/19 16:00 Pulse 101 H 11/06/19 16:00 Resp 17 11/06/19 16:00 BP 123/79 11/06/19 16:00 Pulse Ox 95 11/06/19 07:25 Intake & Output 11/05/19 11/06/19 11/06/19 18:59 06:59 18:59 Intake Total 1000 240 476 Output Total 600 Balance 1000 -360 476 Intake: Oral 600 240 476 Other 400 Output: Urine 600 Other: Voiding Method Self-Catheterization Self-Catheterization Self-Catheterization # Voids 1 1 - Exam PHYSICAL EXAMINATION: Patient is lying in the bed comfortably, no acute distress, awake alert and oriented. Morbidly obese. Mentally challenged. HEENT: Normocephalic. Neck is supple. Pupils reactive. Nostrils clear. Oral cavity is moist. Ears reveal no drainage. Neck reveals no JVD, carotid bruits, or thyromegaly. CHEST EXAMINATION: Trachea is central. Symmetrical expansion. Lung leija clear to auscultation and percussion. CARDIAC: Normal S1, S2 with no gallops. No murmurs ABDOMEN: Soft. Right lower quadrant tenderness. Bowel sounds normal. No organomegaly. No abdominal bruits. Extremities: reveal no edema. No clubbing or cyanosis Neurologically awake, alert, oriented x2 with well-coordinated movements. Paraplegic. Skin: No rash or skin lesions. Psychiatric: Coperative. Could not be assessed completely. Musculoskeletal: No joint swelling or deformity. Normal range of motion. - Labs CBC & Chem 7: 11/05/19 16:31 11/04/19 07:46 Labs: Microbiology - Last 24 Hours (Table) 11/04/19 10:45 Blood Culture - Preliminary Blood No Growth after 48 hours 11/04/19 08:30 Urine Culture - Final Urine,Voided Escherichia coli Assessment and Plan Assessment: Right flank pain secondary to urinary tract infection . Urine culture showed E. coli. Acute urinary tract infection likely related to straight catheterization. Chronic constipation Left sided renal stones nonobstructing Spina bifida and paraplegia Morbid obesity BMI 56.7 Mentally impaired Obstructive sleep apnea not on CPAP History of cystoscopy with double-J stent left ureter 2016 Hypertension DVT prophylaxis. Plan: Patient will be continued on anti-antibiotics in form of ceftriaxone. Urine culture showed E. coli.. Continue the pain management with [place]. Follow up closely. Discussed with his mother at bedside in detail. ID and general surgery is following. Further recommendations based on the clinical course. Time with Patient: Greater than 30
[2019-11-07] MEDS: LACTULOSE 20 GM/30 ML CUP PO SCH ×2 (09:04→20:15)
[2019-11-07] MEDS: OXYBUTYNIN 15 MG TAB.ER.24 PO SCH (09:04)
[2019-11-07] MEDS: DOCUSATE 100 MG CAP PO SCH ×2 (09:04→20:14)
[2019-11-07] MEDS: ACETAMINOPHEN TAB 325 MG TAB PO PRN (09:04)
[2019-11-07] MEDS: LOSARTAN 25 MG TAB PO SCH (09:04)
[2019-11-07] MEDS: POLYETHYLENE GLYCOL 3350 17 GM POWD.PACK PO SCH (09:05)
--- NOTE | 2019-11-07 10:53 | P.PN ---
<Enma Galeana - Last Filed: 11/07/19 10:51> Subjective Progress Note Date: 11/07/19 CHIEF COMPLAINT: Right lower quadrant abdominal pain HISTORY OF PRESENT ILLNESS: Patient examined this morning at the bedside. Mother present. Patient reports mild nausea this morning. He states his abdominal pain is tolerable. Patient has received oral cathartics over the weekend. Mother reports two very small hard bowel movements. PHYSICAL EXAM: VITALS: Reviewed CONSTITUTIONAL: Well developed and in no acute distress. EYES: Conjuctivae without sclera icterus. Pupils are equally round and reactive to light. Extraocular movements grossly intact. HEAD, EARS, NOSE, THROAT: Moist buccal mucosa. Head is atraumatic, normocephalic. Hears conversational speech. No nasal drainage. RESPIRATORY: Non-labored respirations and equal bilateral excursions. No gross wheezes. CARDIOVASCULAR: Regular rate and rhythm. Extremities without moderate edema. Palpable 2+ radial pulses. ABDOMEN: Protuberant, soft, no peritonitis. Mild right lower quadrant abdominal pain with deep palpation. BACK: His symmetry along the right flank. No color changes. MUSCULOSKELETAL: Nail and fingers with good capillary refill. SKIN: Warm and well perfused with good skin turgor. NEUROLOGIC: Cranial nerves I through XII grossly intact. Sensation upper and extremities intact. No focal or lateralizing signs. PSYCH: Appropriate affect. Alert and oriented to person, place and time. ASSESSMENT: 1. Right lower quadrant abdominal pain 2. Spina bifida 3. Chronic constipation 4. Right lumbar hernia 5. Chronic urinary tract infection 6. Super morbid obesity, BMI 56.7 PLAN: -Continue diet as tolerated -Continue oral cathartics -Milk of molasses enema today Nurse practitioner note has been reviewed by physician. Signing provider agrees with the documented findings, assessment, and plan of care. Objective - Vital Signs Vital signs: Vital Signs Temp 98.3 F 11/07/19 08:00 Pulse 88 11/07/19 08:00 Resp 18 11/07/19 08:00 BP 107/74 11/07/19 08:00 Pulse Ox 96 11/07/19 08:00 Intake & Output 11/06/19 11/07/19 11/07/19 18:59 06:59 18:59 Intake Total 476 Balance 476 Weight 140.387 kg Intake: Oral 476 Other: Voiding Method Self-Catheterization Self-Catheterization # Voids 1 1 - Labs CBC & Chem 7: 11/05/19 16:31 11/04/19 07:46 Labs: Microbiology - Last 24 Hours (Table) 11/04/19 10:45 Blood Culture - Preliminary Blood No Growth after 48 hours 11/04/19 08:30 Urine Culture - Final Urine,Voided Escherichia coli <ChipJayashree N - Last Filed: 11/07/19 20:03> Subjective As above. Patient had minimal output with cathartics. Recommend enemas. May be discharged after results from enemas. Objective - Vital Signs Vital signs: Vital Signs Temp 99.0 F 11/07/19 16:00 Pulse 98 11/07/19 16:00 Resp 18 11/07/19 16:00 BP 120/58 11/07/19 16:00 Pulse Ox 96 11/07/19 16:00 Intake & Output 11/07/19 11/07/19 11/08/19 06:59 18:59 06:59 Intake Total 236 Balance 236 Weight 140.387 kg Intake: Oral 236 Other: Voiding Method Self-Catheterization # Voids 1 3 - Labs CBC & Chem 7: 11/05/19 16:31 11/04/19 07:46 Labs: Microbiology - Last 24 Hours (Table) 11/04/19 10:45 Blood Culture - Preliminary Blood No Growth after 72 hours Assessment and Plan (1) Right lower quadrant abdominal pain Current Visit: Yes Status: Acute Code(s): R10.31 - RIGHT LOWER QUADRANT PAIN SNOMED Code(s): 876312811 (2) Constipation due to neurogenic bowel Current Visit: Yes Status: Acute Code(s): K59.00 - CONSTIPATION, UNSPECIFIED SNOMED Code(s): 414872678 (3) Spina bifida Current Visit: Yes Status: Acute Code(s): Q05.9 - SPINA BIFIDA, UNSPECIFIED SNOMED Code(s): 08658295 (4) Spina bifida aperta of lumbar spine Current Visit: Yes Status: Acute Code(s): Q05.7 - LUMBAR SPINA BIFIDA WITHOUT HYDROCEPHALUS SNOMED Code(s): 556552636 (5) Lumbar hernia Current Visit: Yes Status: Acute Code(s): K45.8 - OTH ABDOMINAL HERNIA WITHOUT OBSTRUCTION OR GANGRENE SNOMED Code(s): 29272349 (6) Morbid obesity due to excess calories Current Visit: Yes Status: Acute Code(s): E66.01 - MORBID (SEVERE) OBESITY DUE TO EXCESS CALORIES SNOMED Code(s): 319459256 (7) BMI 50.0-59.9, adult Current Visit: Yes Status: Acute Code(s): Z68.43 - BODY MASS INDEX (BMI) 50.0-59.9, ADULT SNOMED Code(s): 734334569 (8) UTI (urinary tract infection) Current Visit: Yes Status: Acute Code(s): N39.0 - URINARY TRACT INFECTION, SITE NOT SPECIFIED SNOMED Code(s): 64946205
--- NOTE | 2019-11-07 12:50 | PN ---
PROGRESS NOTE DATE OF SERVICE: 11/07/2019. REASON FOR FOLLOWUP: Escherichia coli urinary tract infection. INTERVAL HISTORY: The patient is currently afebrile, has been breathing comfortably. The patient still has slight discomfort from the . Patient has no bowel movement in the last few days. Denies any nausea, vomiting. No chest pain, shortness of breath or cough. PHYSICAL EXAMINATION: Blood pressure 107/74 with a pulse of 88, temperature 98.3. He is 96% on room air. General description is a middle-aged male lying in bed in no distress. RESPIRATORY SYSTEM: Unlabored breathing, clear to auscultation anteriorly. HEART: S1, S2. Regular rate and rhythm. ABDOMEN: Soft, no tenderness. LABS: No new labs have been obtained today. DIAGNOSTIC IMPRESSION AND PLAN: Patient with Escherichia coli urinary tract infection clinically responding to the Rocephin patient is on switching to oral Ceftin for 3 to 5 days to finish a course of therapy. Mother at the bedside. Questions were answered. MMODL / IJN: [id number] /
--- NOTE | 2019-11-07 15:18 | P.PN ---
Subjective Patient is a 23-year-old male with a known history of spina bifida, mentally impaired, neurogenic bladder straight catheterization at home, seizure disorder, upset to sleep apnea not on CPAP and other multiple medical problems came to ER with complaints of abdominal pain mainly right lower quadrant and flank pain started this morning. According to his mother at bedside patient is usually has high pain tolerance. And has been complaining of abdominal pain since morning. No fever no chills. No nausea vomiting or diarrhea. Patient does have history of renal stones. Denied any dysuria or hematuria. Patient is on straight catheterization at home. No cough or sputum production. No chest pain or shortness of breath. Patient is a poor historian and most the history was taken from the medical records and his family at bedside. Patient is mostly bedridden and could not feel below the upper thighs. CT abdomen and pelvis was done which showed lobular appearing kidneys. Renal cysts are present nonobstructing renal stones present on the left. Posterior lateral right pelvic wall herniation. 11/05/19 Patient is currently sitting in the bed comfortably. Still complaining of right lower quadrant abdominal pain 6 out of 10. No fever no chills. No leukocytosis. No nausea vomiting or abdominal pain. Patient is being continued on and device in the form of ceftriaxone 2 g daily. ID is following. Gen. surgery was consulted due to the right lateral pelvic wall herniation. No complaints of chest pain or shortness of breath. No headache or dizziness or lightheadedness. Patient is somewhat poor historian. 11/06/2019 Patient is still complaining of right lower quadrant abdominal pain but is improving compared to yesterday. Patient is being continued on laxatives and stool softeners. Gen. surgery is following. Patient is afebrile. Urine culture showed E. coli. Continued on ceftriaxone. No complaints of chest pain or shortness of breath. Tolerating oral diet. No other acute overnight issues. 11/07/2019 Patient is on antibiotics for his UTI, is improving. The ellipses within normal limits. However patient still complaining of from some right lower quadrant abdominal pain and he did not have bowel movement despite any medical, surgical team will recommend further monitoring for now Objective - Vital Signs Vital signs: Vital Signs Temp 98.3 F 11/07/19 08:00 Pulse 88 11/07/19 08:00 Resp 18 11/07/19 08:00 BP 107/74 02/17/20 08:00 Pulse Ox 96 11/07/19 08:00 Intake & Output 11/06/19 11/07/19 11/07/19 18:59 06:59 18:59 Intake Total 476 236 Balance 476 236 Weight 140.387 kg Intake: Oral 476 236 Other: Voiding Method Self-Catheterization Self-Catheterization # Voids 1 1 3 - Exam Patient is lying in the bed comfortably, no acute distress, awake alert and oriented. Morbidly obese. Mentally challenged. HEENT: Normocephalic. Neck is supple. Pupils reactive. Nostrils clear. Oral cavity is moist. Ears reveal no drainage. Neck reveals no JVD, carotid bruits, or thyromegaly. CHEST EXAMINATION: Trachea is central. Symmetrical expansion. Lung leija clear to auscultation and percussion. CARDIAC: Normal S1, S2 with no gallops. No murmurs ABDOMEN: Soft. Right lower quadrant tenderness. Bowel sounds normal. No organomegaly. No abdominal bruits. Extremities: reveal no edema. No clubbing or cyanosis Neurologically awake, alert, oriented x2 with well-coordinated movements. Paraplegic. Skin: No rash or skin lesions. Psychiatric: Coperative. Could not be assessed completely. Musculoskeletal: No joint swelling or deformity. Normal range of motion. - Labs CBC & Chem 7: 11/05/19 16:31 11/04/19 07:46 Labs: Microbiology - Last 24 Hours (Table) 11/04/19 10:45 Blood Culture - Preliminary Blood No Growth after 72 hours 11/04/19 08:30 Urine Culture - Final Urine,Voided Escherichia coli Assessment and Plan Assessment: Right flank pain secondary to urinary tract infection . Urine culture showed E. coli. Acute urinary tract infection likely related to straight catheterization. ongoing constipation Left sided renal stones nonobstructing Spina bifida and paraplegia Morbid obesity BMI 56.7 Mentally impaired Obstructive sleep apnea not on CPAP History of cystoscopy with double-J stent left ureter 2016 Hypertension Plan: This is a pleasant 24 years old male who presents with UTI and his been covered with antibiotics and improving. He still complaining of some mild abdominal pain with constipation, no bowel movement today, surgery to recommend further monitoring and treatment for nowLabs and medication were reviewed.. Continue same treatment. Continue with symptomatic treatment. Resume home medication. Monitor lytes and vitals. DVT and GI prophylaxis. Further recommendations of the clinical course of the patient DVT prophylaxis: Subcutaneous heparin GI Prophylaxis: Pepcid Prognosis is guarded
[2019-11-07] MEDS: HYDROcodone/APAP 5-325MG 1 EACH TAB PO PRN (20:15)
[2019-11-07] MEDS: HEPARIN SODIUM,PORCINE 5,000 UNIT/ML 1 ML VIAL SQ SCH (20:17)
[2019-11-07] MEDS: FAMOTIDINE 20 MG/2 ML VIAL IV SCH (20:17)
--- NOTE | 2019-11-07 22:06 | CT ---
EXAMINATION TYPE: CT abdomen pelvis wo con DATE OF EXAM: 11/07/2019 COMPARISON: 11/04/2019 HISTORY: constapation CT DLP: 2579.9 mGycm Automated exposure control for dose reduction was used. Multiple axial sections were obtained from the diaphragm to the floor the pelvis with no contrast. There is some interstitial edema in the lower lobes bilaterally. Heart is top normal in size. There i s no pleural effusion. Stomach is intact. Spleen is enlarged and measures 15.5 cm. Liver shows no foc al defect. Gallbladder appears normal. There is no pancreatic mass. Stomach is intact. There is no adrenal mass. There is irregular cortical thinning in both kidneys. There are multiple ca lculi lower pole left kidney. There is tiny calculi lower pole right kidney. Ureters are not dilated. There is no hydronephrosis. There is no inguinal hernia. There is apparent ventriculoperitoneal shunt catheter. There is no mesenteric edema. There is no ascites or free air. There is no sign of a bowel obstructio n. There is right lateral posterior abdominal wall defect with herniation of right:. There is normal appendix. The pelvic ring is intact. Proximal femurs are intact. I see no compression fracture in the lumbar spine. There is multilevel spina bifida noted in the lower lumbar spine and sacrum. There is multilevel lower thoracic spinal stenosis. IMPRESSION: Irregular cortical thinning in both kidneys could relate to chronic pyelonephritis. Nonobstructing bi lateral renal calculi. Posterior lateral right abdominal wall hernia unchanged. Normal appendix. No acute abnormality within the abdomen pelvis. Lower mild lobe pulmonary interstitial edema. Unchanged.
[2019-11-07 23:49] LABS: African American GFR (CKD) >90 (>60 ml/min/1.73 sqM); Anion Gap 10 mmol/L; Blood Urea Nitrogen 28 mg/dL (9-20); Carbon Dioxide 26 mmol/L (22-30); Chloride 102 mmol/L (98-107); Glucose 105 mg/dL (74-99); Non-African American GFR(CKD) >90 (>60 ml/min/1.73 sqM); Potassium 4.4 mmol/L (3.5-5.1); Sodium 138 mmol/L (137-145)
[2019-11-08] MEDS: HYDROcodone/APAP 5-325MG 1 EACH TAB PO PRN ×2 (03:20→18:55)
--- NOTE | 2019-11-08 07:04 | P.PN ---
Subjective Patient is a 23-year-old male with a known history of spina bifida, mentally impaired, neurogenic bladder straight catheterization at home, seizure disorder, upset to sleep apnea not on CPAP and other multiple medical problems came to ER with complaints of abdominal pain mainly right lower quadrant and flank pain started this morning. According to his mother at bedside patient is usually has high pain tolerance. And has been complaining of abdominal pain since morning. No fever no chills. No nausea vomiting or diarrhea. Patient does have history of renal stones. Denied any dysuria or hematuria. Patient is on straight catheterization at home. No cough or sputum production. No chest pain or shortness of breath. Patient is a poor historian and most the history was taken from the medical records and his family at bedside. Patient is mostly bedridden and could not feel below the upper thighs. CT abdomen and pelvis was done which showed lobular appearing kidneys. Renal cysts are present nonobstructing renal stones present on the left. Posterior lateral right pelvic wall herniation. 11/05/19 Patient is currently sitting in the bed comfortably. Still complaining of right lower quadrant abdominal pain 6 out of 10. No fever no chills. No leukocytosis. No nausea vomiting or abdominal pain. Patient is being continued on and device in the form of ceftriaxone 2 g daily. ID is following. Gen. surgery was consulted due to the right lateral pelvic wall herniation. No complaints of chest pain or shortness of breath. No headache or dizziness or lightheadedness. Patient is somewhat poor historian. 11/06/2019 Patient is still complaining of right lower quadrant abdominal pain but is improving compared to yesterday. Patient is being continued on laxatives and stool softeners. Gen. surgery is following. Patient is afebrile. Urine culture showed E. coli. Continued on ceftriaxone. No complaints of chest pain or shortness of breath. Tolerating oral diet. No other acute overnight issues. 11/07/2019 Patient is on antibiotics for his UTI, is improving. The ellipses within normal limits. However patient still complaining of from some right lower quadrant abdominal pain and he did not have bowel movement despite any medical, surgical team will recommend further monitoring for now 11/08/19 Patient is still complaining of from right lower quadrant abdominal pain and tenderness, last night he needed some pain pills, his pain radiates to the back at times, he had little bowel movement as of yesterday evening after the enema. He is hemodynamically stable. Labs are stable. He had repeat CT of the abdomen and pelvis yesterday: Regular cortical thinning in both kidney couldn't related to chronic pyelonephritis, nonobstructing bilateral renal calculi. Posterior lateral right abdominal wall hernia and change. Normal appendix. Patient is been followed closely by surgery team. We will give the patient for monitoring. We will repeat urinalysis today Objective - Vital Signs Vital signs: Vital Signs Temp 97.3 F L 11/08/19 01:10 Pulse 99 11/08/19 01:10 Resp 18 11/07/19 16:00 BP 126/71 11/08/19 01:10 Pulse Ox 95 11/08/19 01:10 Intake & Output 11/07/19 11/07/19 11/08/19 06:59 18:59 06:59 Intake Total 236 150 Balance 236 150 Weight 140.387 kg 139.8 kg Intake: Oral 236 150 Other: Voiding Method Self-Catheterization Self-Catheterization # Voids 1 3 1 - Exam Patient is lying in the bed comfortably, no acute distress, awake alert and oriented. Morbidly obese. Mentally challenged. HEENT: Normocephalic. Neck is supple. Pupils reactive. Nostrils clear. Oral cavity is moist. Ears reveal no drainage. Neck reveals no JVD, carotid bruits, or thyromegaly. CHEST EXAMINATION: Trachea is central. Symmetrical expansion. Lung leija clear to auscultation and percussion. CARDIAC: Normal S1, S2 with no gallops. No murmurs ABDOMEN: Soft. Right lower quadrant tenderness. Bowel sounds normal. No organomegaly. No abdominal bruits. Extremities: reveal no edema. No clubbing or cyanosis Neurologically awake, alert, oriented x2 with well-coordinated movements. Paraplegic. Skin: No rash or skin lesions. Psychiatric: Coperative. Could not be assessed completely. Musculoskeletal: No joint swelling or deformity. Normal range of motion. - Labs CBC & Chem 7: 11/05/19 16:31 11/07/19 22:27 Labs: Abnormal Lab Results - Last 24 Hours (Table) 11/07/19 Range/Units 22:27 BUN 28 H (9-20) mg/dL Glucose 105 H (74-99) mg/dL Microbiology - Last 24 Hours (Table) 11/04/19 10:45 Blood Culture - Preliminary Blood No Growth after 72 hours Assessment and Plan Assessment: Right flank pain secondary to urinary tract infection . Urine culture showed E. coli. Acute urinary tract infection likely related to straight catheterization. ongoing constipation with right upper quadrant abdominal pain, CT of the abdomen and pelvis showed normal appendix Bilateral renal stones nonobstructing splenomegaly Spina bifida and paraplegia Morbid obesity BMI 56.7 Mentally impaired Obstructive sleep apnea not on CPAP History of cystoscopy with double-J stent left ureter 2016 Hypertension Plan: This is a pleasant 24 years old male who presents with UTI and his been covered with antibiotics and improving. He still complaining of some mild abdominal pain with constipation, no bowel movement today, surgery to recommend further monitoring and treatment for now, repeat urinalysis. Labs and medication were reviewed.. Continue same treatment. Continue with symptomatic treatment. Resume home medication. Monitor lytes and vitals. DVT and GI prophylaxis. Further recommendations of the clinical course of the patient DVT prophylaxis: Subcutaneous heparin GI Prophylaxis: Pepcid Prognosis is guarded
[2019-11-08] MEDS: HEPARIN SODIUM,PORCINE 5,000 UNIT/ML 1 ML VIAL SQ SCH ×2 (08:31→21:44)
[2019-11-08] MEDS: FAMOTIDINE 20 MG/2 ML VIAL IV SCH (08:31)
[2019-11-08] MEDS: POLYETHYLENE GLYCOL 3350 17 GM POWD.PACK PO SCH (08:32)
[2019-11-08] MEDS: OXYBUTYNIN 15 MG TAB.ER.24 PO SCH (08:32)
[2019-11-08] MEDS: LOSARTAN 25 MG TAB PO SCH (08:32)
[2019-11-08] MEDS: DOCUSATE 100 MG CAP PO SCH ×2 (08:32→21:43)
[2019-11-08] MEDS: LACTULOSE 20 GM/30 ML CUP PO SCH ×2 (08:32→21:44)
[2019-11-08] MEDS ORDERED: MAGNESIUM CITRATE 296 ML BOTTLE PO ONE (08:57)
[2019-11-08] MEDS: MAGNESIUM HYDROXIDE 2,400 MG/10 ML CUP PO SCH ×2 (09:40→21:45)
--- NOTE | 2019-11-08 11:09 | P.PN ---
<Enma Galeana - Last Filed: 11/08/19 11:07> Subjective Progress Note Date: 11/08/19 CHIEF COMPLAINT: Right lower quadrant abdominal pain HISTORY OF PRESENT ILLNESS: Patient examined this morning at the bedside. Mother present. Patient received enema yesterday with only a very small hard bowel movement. Patient complained of increased pain overnight but his pain is tolerable this morning. PHYSICAL EXAM: VITALS: Reviewed CONSTITUTIONAL: Well developed and in no acute distress. EYES: Conjuctivae without sclera icterus. Pupils are equally round and reactive to light. Extraocular movements grossly intact. HEAD, EARS, NOSE, THROAT: Moist buccal mucosa. Head is atraumatic, normocephalic. Hears conversational speech. No nasal drainage. RESPIRATORY: Non-labored respirations and equal bilateral excursions. No gross wheezes. CARDIOVASCULAR: Regular rate and rhythm. Extremities without moderate edema. Palpable 2+ radial pulses. ABDOMEN: Protuberant, soft, no peritonitis. Nontender with palpation. BACK: His symmetry along the right flank. No color changes. MUSCULOSKELETAL: Nail and fingers with good capillary refill. SKIN: Warm and well perfused with good skin turgor. NEUROLOGIC: Cranial nerves I through XII grossly intact. Sensation upper and extremities intact. No focal or lateralizing signs. PSYCH: Appropriate affect. Alert and oriented to person, place and time. ASSESSMENT: 1. Right lower quadrant abdominal pain 2. Spina bifida 3. Chronic constipation 4. Right lumbar hernia 5. Chronic urinary tract infection 6. Super morbid obesity, BMI 56.7 PLAN: -Downgrade diet to full liquid diet per mother request -Continue oral cathartics -Soap suds enema today -Add Milk of Magnesia BID -Add magnesium citrate x 1 dose Nurse practitioner note has been reviewed by physician. Signing provider agrees with the documented findings, assessment, and plan of care. Objective - Vital Signs Vital signs: Vital Signs Temp 98.0 F 11/08/19 07:10 Pulse 96 11/08/19 07:10 Resp 16 11/08/19 07:10 BP 125/75 11/08/19 07:10 Pulse Ox 97 11/08/19 07:10 Intake & Output 11/07/19 11/08/19 11/08/19 18:59 06:59 18:59 Intake Total 236 150 150 Balance 236 150 150 Weight 139.8 kg Intake: Oral 236 150 150 Other: Voiding Method Self-Catheterization Self-Catheterization Self-Catheterization # Voids 3 1 - Labs CBC & Chem 7: 11/05/19 16:31 11/07/19 22:27 Labs: Abnormal Lab Results - Last 24 Hours (Table) 11/07/19 Range/Units 22:27 BUN 28 H (9-20) mg/dL Glucose 105 H (74-99) mg/dL Microbiology - Last 24 Hours (Table) 11/04/19 10:45 Blood Culture - Preliminary Blood No Growth after 72 hours <Jayashree Saunders N - Last Filed: 11/08/19 21:32> Subjective CT of the abdomen and pelvis repeat reviewed without findings of small bowel obstruction. Moderate stool burden found. Continue with cathartics. Objective - Vital Signs Vital signs: Vital Signs Temp 98.4 F 11/08/19 15:44 Pulse 110 H 11/08/19 15:44 Resp 16 11/08/19 15:44 BP 111/73 11/08/19 15:44 Pulse Ox 95 11/08/19 15:44 Intake & Output 11/08/19 11/08/19 11/09/19 06:59 18:59 06:59 Intake Total 150 300 Balance 150 300 Weight 139.8 kg Intake: Oral 150 300 Other: Voiding Method Self-Catheterization Self-Catheterization # Voids 1 3 - Labs CBC & Chem 7: 11/05/19 16:31 11/07/19 22:27 Labs: Abnormal Lab Results - Last 24 Hours (Table) 11/07/19 11/08/19 Range/Units 22:27 12:00 BUN 28 H (9-20) mg/dL Glucose 105 H (74-99) mg/dL Urine WBC >182 H (0-5) /hpf Urine WBC Clumps Occasional H (None) /hpf Urine Bacteria Rare H (None) /hpf Urine Mucus Rare H (None) /hpf Microbiology - Last 24 Hours (Table) 11/04/19 10:45 Blood Culture - Preliminary Blood No Growth after 96 hours Assessment and Plan (1) Right lower quadrant abdominal pain Current Visit: Yes Status: Acute Code(s): R10.31 - RIGHT LOWER QUADRANT PAIN SNOMED Code(s): 320774383 (2) Constipation due to neurogenic bowel Current Visit: Yes Status: Acute Code(s): K59.00 - CONSTIPATION, UNSPECIFIED SNOMED Code(s): 213365880 (3) Spina bifida Current Visit: Yes Status: Acute Code(s): Q05.9 - SPINA BIFIDA, UNSPECIFIED SNOMED Code(s): 89203599 (4) Spina bifida aperta of lumbar spine Current Visit: Yes Status: Acute Code(s): Q05.7 - LUMBAR SPINA BIFIDA WITHOUT HYDROCEPHALUS SNOMED Code(s): 464669179 (5) Lumbar hernia Current Visit: Yes Status: Acute Code(s): K45.8 - OTH ABDOMINAL HERNIA WITHOUT OBSTRUCTION OR GANGRENE SNOMED Code(s): 23421208 (6) Morbid obesity due to excess calories Current Visit: Yes Status: Acute Code(s): E66.01 - MORBID (SEVERE) OBESITY DUE TO EXCESS CALORIES SNOMED Code(s): 835361986 (7) BMI 50.0-59.9, adult Current Visit: Yes Status: Acute Code(s): Z68.43 - BODY MASS INDEX (BMI) 50.0-59.9, ADULT SNOMED Code(s): 975758477 (8) UTI (urinary tract infection) Current Visit: Yes Status: Acute Code(s): N39.0 - URINARY TRACT INFECTION, SITE NOT SPECIFIED SNOMED Code(s): 23144000
[2019-11-08 12:43] LABS: Bacteria,Urine Rare /hpf; Mucus,Urine Rare /hpf; RBC,Urine 4 /hpf (0-5); WBC,Urine >182 /hpf (0-5)
[2019-11-08 12:47] LABS: Appearance,Urine Turbid (Clear); Color,Urine Yellow
[2019-11-08 12:48] LABS: Bilirubin,Urine Negative (Negative); Blood,Urine Negative (Negative); Glucose,Urine (UA) Negative (Negative); Ketones,Urine Negative (Negative); Leukocyte Esterase,Urine Large (Negative); Nitrite,Urine Positive (Negative); Protein,Urine 2+ (Negative); Urobilinogen,Urine <2.0 mg/dL (<2.0)
--- NOTE | 2019-11-08 15:45 | PN ---
PROGRESS NOTE DATE OF SERVICE: 11/08/2019 REASON FOR FOLLOWUP: E coli urinary tract infection. INTERVAL HISTORY: The patient is currently afebrile, has been breathing comfortably. The patient denies having any chest pain or shortness of breath or cough. He still have a problem with constipation, with no bowel movement. PHYSICAL EXAMINATION: Blood pressure is 125/75 with a pulse of 96, temperature of 98. He is 97% on room air. General description is a young male lying in bed in no distress. RESPIRATORY SYSTEM: Unlabored breathing. Clear to auscultation anteriorly. HEART: S1, S2. Regular rate and rhythm. ABDOMEN: Soft. No tenderness. LABS/IMAGING: Urine has been E coli. Blood culture has been negative. CT of abdomen and pelvis did not show any abscess or hydronephrosis. DIAGNOSTIC IMPRESSION AND PLAN: Patient admitted to hospital with abdominal pain, initially diagnosed with urinary tract infection. Initial CT as well as follow-up CT did not show any evidence of a GI tract abnormality. It did show some stones but no hydronephrosis. The patient is currently covered with Rocephin; will finish up a short course of oral Ceftin and monitor his clinical course closely. Continue supportive care. MMODL / IJN: [id number] /
[2019-11-08] MEDS: ACETAMINOPHEN TAB 325 MG TAB PO PRN (21:43)
[2019-11-08] MEDS: FAMOTIDINE 20 MG TAB PO SCH (21:43)
[2019-11-09] MEDS: HYDROcodone/APAP 5-325MG 1 EACH TAB PO PRN (00:41)
[2019-11-09] MEDS: LACTULOSE 20 GM/30 ML CUP PO SCH (08:42)
[2019-11-09] MEDS: DOCUSATE 100 MG CAP PO SCH (08:43)
[2019-11-09] MEDS: LOSARTAN 25 MG TAB PO SCH (08:43)
[2019-11-09] MEDS: POLYETHYLENE GLYCOL 3350 17 GM POWD.PACK PO SCH (08:43)
[2019-11-09] MEDS: MAGNESIUM HYDROXIDE 2,400 MG/10 ML CUP PO SCH (08:43)
[2019-11-09] MEDS: FAMOTIDINE 20 MG TAB PO SCH (08:43)
[2019-11-09] MEDS: HEPARIN SODIUM,PORCINE 5,000 UNIT/ML 1 ML VIAL SQ SCH (08:43)
[2019-11-09] MEDS: OXYBUTYNIN 15 MG TAB.ER.24 PO SCH (08:46)
[2019-11-09 09:00] VITALS: TEMP 97.7
[2019-11-09] MEDS ORDERED: MAGNESIUM CITRATE 296 ML BOTTLE PO ONE (10:28)
--- NOTE | 2019-11-09 10:31 | P.PN ---
Subjective Progress Note Date: 11/09/19 CHIEF COMPLAINT: Right lower quadrant abdominal pain HISTORY OF PRESENT ILLNESS: Patient examined this morning at the bedside. Mother present. Patient appears comfortable this morning. Tolerating full liquid diet. Denies nausea or vomiting. Mother reports only a very small hard bowel movement. She has attempted manual disimpaction but states she does not feel any stool in the rectal vault. PHYSICAL EXAM: VITALS: Reviewed CONSTITUTIONAL: Well developed and in no acute distress. EYES: Conjuctivae without sclera icterus. Pupils are equally round and reactive to light. Extraocular movements grossly intact. HEAD, EARS, NOSE, THROAT: Moist buccal mucosa. Head is atraumatic, normocephalic. Hears conversational speech. No nasal drainage. RESPIRATORY: Non-labored respirations and equal bilateral excursions. No gross wheezes. CARDIOVASCULAR: Regular rate and rhythm. Extremities without moderate edema. Palpable 2+ radial pulses. ABDOMEN: Protuberant, soft, no peritonitis. Nontender with palpation. BACK: His symmetry along the right flank. No color changes. MUSCULOSKELETAL: Nail and fingers with good capillary refill. SKIN: Warm and well perfused with good skin turgor. NEUROLOGIC: Cranial nerves I through XII grossly intact. Sensation upper and extremities intact. No focal or lateralizing signs. PSYCH: Appropriate affect. Alert and oriented to person, place and time. ASSESSMENT: 1. Right lower quadrant abdominal pain 2. Spina bifida 3. Chronic constipation 4. Right lumbar hernia 5. Chronic urinary tract infection 6. Super morbid obesity, BMI 56.7 PLAN: -Continue full liquid diet -Continue oral cathartics -Repeat dose of magnesium citrate today -Soap suds enema ordered yesterday but was never given. Spoke with nursing to administer today. Max of 3 enemas Nurse practitioner note has been reviewed by physician. Signing provider agrees with the documented findings, assessment, and plan of care. Objective - Vital Signs Vital signs: Vital Signs Temp 97.7 F 11/09/19 07:27 Pulse 99 11/09/19 07:27 Resp 17 11/09/19 07:27 BP 128/82 11/09/19 07:27 Pulse Ox 95 11/09/19 07:27 Intake & Output 11/08/19 11/09/19 11/09/19 18:59 06:59 18:59 Intake Total 300 480 Balance 300 480 Weight 139.2 kg Intake: Oral 300 480 Other: Voiding Method Self-Catheterization Self-Catheterization Self-Catheterization # Voids 3 1 - Labs CBC & Chem 7: 11/05/19 16:31 11/07/19 22:27 Labs: Abnormal Lab Results - Last 24 Hours (Table) 11/08/19 Range/Units 12:00 Urine WBC >182 H (0-5) /hpf Urine WBC Clumps Occasional H (None) /hpf Urine Bacteria Rare H (None) /hpf Urine Mucus Rare H (None) /hpf Microbiology - Last 24 Hours (Table) 11/04/19 10:45 Blood Culture - Preliminary Blood No Growth after 96 hours
--- NOTE | 2019-11-09 11:30 | PN ---
PROGRESS NOTE DATE OF SERVICE: 11/09/2019 REASON FOR FOLLOWUP: E coli urinary tract infection. INTERVAL HISTORY: The patient is currently afebrile. The patient has been breathing comfortably. Patient still has a no bowel movement despite multiple laxatives and enemas though patient denies any abdominal pain. No nausea, no vomiting. PHYSICAL EXAMINATION: Blood pressure is 128/82 with a pulse of 99, temperature 97.7. He is 95% on room air. General description is a middle-aged male up in the chair in no distress. RESPIRATORY SYSTEM: Unlabored breathing, clear to auscultation anteriorly. HEART: S1, S2. Regular rate and rhythm. ABDOMEN: Soft, no tenderness. LABS: Repeat UA has been positive. Blood cultures have been negative. DIAGNOSTIC IMPRESSION AND PLAN: Patient with an E coli urinary tract infection, currently covered with Rocephin, finishing therapy with oral Ceftin for short course on discharge, monitoring his course closely. Mother at the bedside, her questions were answered. MMODL / IJN: [id number] /
[2019-11-09 15:39] VITALS: BP 115/78; PULSE 107; RESP 18
--- NOTE | 2019-11-10 00:03 | DS ---
DISCHARGE SUMMARY DATE OF ADMISSION: 11/04/2019 DATE OF DISCHARGE: 11/09/2019 FINAL DIAGNOSES: 1. Severe constipation. 2. Acute urinary tract infection from cystitis, growing Escherichia coli. 3. Essential hypertension. 4. Obstructive sleep apnea. Does not use CPAP. 5. Mentally impaired. 6. Morbid obesity; body mass index 56.7. 7. Spina bifida and paraplegia. 8. Chronic splenomegaly. 9. Bilateral renal stones, non-obstructing. HOSPITAL COURSE: This patient presented with constipation, was given bowel regimen, to which he responded well, had a very large bowel movement. He was also treated for UTI. Culture was growing E coli. Doing well today. Discussed with the patient's mother at the bedside. The patient otherwise is doing well, wanting more food. PHYSICAL EXAMINATION: On examination, temperature 97, pulse 99, respirations 17, blood pressure 128/82, pulse ox 95% on room air. ABDOMEN: Soft, nontender. INVESTIGATIONS: White count 6.2, hemoglobin 14, creatinine 0.93. Urine culture positive for E coli. CONSULTATIONS: 1. Dr. Turcios from Infectious Disease. 2. Dr. Saunders from General Surgery. DISCHARGE MEDICATIONS: 1. Ditropan XL 50 mg a day. 2. Cozaar 25 mg a day. 3. Tylenol 650 mg q.6 p.r.n. 4. Ceftin 500 mg p.o. b.i.d. for 7 days. 5. Lactulose 30 grams p.o. b.i.d. p.r.n. 6. MiraLAX 17 grams p.o. daily p.r.n. Follow up with Dr. Manfred Barraza on 11/16/2019. Follow up with Dr. Saunders in one week. MMODL / IJN: [id number] /
== END 2019-11-09 17:25 | disposition home or self-care (01) | DRG 699 ==
LOC: EC 06:59 → 1SOBS 09:38 → OBSVTOIN 11-06 10:48 → 4SSUR 11-06 15:47
PROVIDERS: ADMIT Hospitalist; ATTEND Hospitalist
DX: T83.518A Infection and inflammatory reaction due to other urinary catheter, initial encounter (principal); Z68.43 Body mass index [BMI] 50.0-59.9, adult; G82.20 Paraplegia, unspecified; E66.01 Morbid (severe) obesity due to excess calories; G40.909 Epilepsy, unspecified, not intractable, without status epilepticus; G47.33 Obstructive sleep apnea (adult) (pediatric); I10 Essential (primary) hypertension; K59.09 Other constipation; B96.20 Unspecified Escherichia coli [E. coli] as the cause of diseases classified elsewhere; N20.0 Calculus of kidney; K45.8 Other specified abdominal hernia without obstruction or gangrene; N30.90 Cystitis, unspecified without hematuria; R16.1 Splenomegaly, not elsewhere classified; N31.9 Neuromuscular dysfunction of bladder, unspecified; Z79.899 Other long term (current) drug therapy; Z82.49 Family history of ischemic heart disease and other diseases of the circulatory system; Z87.442 Personal history of urinary calculi; Z98.2 Presence of cerebrospinal fluid drainage device; Z87.440 Personal history of urinary (tract) infections; Z82.0 Family history of epilepsy and other diseases of the nervous system; Z74.01 Bed confinement status; Q05.5 Cervical spina bifida without hydrocephalus; Q05.7 Lumbar spina bifida without hydrocephalus
CPT/HCPCS: 36415; 74176; 74177; 80048; 80053; 81001; 82150; 83605; 83690; 85025; 87040; 87077; 87086; 87186; 96365; 99285

== ENCOUNTER 2020-02-09 00:08 | Emergency (ER) | payer MEDICARE, OTHER ==
--- NOTE | 2020-02-09 01:09 | ED ---
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 She is concerned that may be changed. Patient reports these asymptomatic. Denies any headaches changes in vision, nausea vomiting. Denies any other complaints. Systemic: Pt denies fatigue, fever/chills, rash. Pt denies weakness, night sweats, weight loss. Neuro: Pt denies headache, visual disturbances, syncope or pre-syncope. HEENT: Pt denies ocular discharge or irritation, otalgia, rhinorrhea, pharyngi tis or notable lymphadenopathy. Cardiopulmonary: Pt denies chest pain, SOB, heart palpitations, dyspnea on exertion. Abdominal/GI: Pt denies abdominal pain, n/v/d. : Pt denies dysuria, burning w/ urination, frequency/urgency. Denies new onset urinary or bowel incontinence. MSK: Pt denies myalgia, loss of strength or function in extremities. Neuro: Pt denies new onset weakness, paresthesias. - Related Data Home Medications Medication Instructions Recorded Confirmed Oxybutynin Chloride [Ditropan XL] 15 mg PO QAM 06/22/14 11/04/19 Losartan [Cozaar] 25 mg PO DAILY 03/17/18 11/04/19 Previous Rx's Medication Instructions Recorded Acetaminophen Tab [Tylenol] 650 mg PO Q6HR PRN tab 11/07/19 Cefuroxime Axetil [Ceftin] 500 mg PO BID 7 Days #14 tab 11/07/19 Lactulose [Cephulac] 30 gm PO BID PRN #300 ml 11/07/19 Polyethylene Glycol 3350 [Miralax] 17 gm PO DAILY PRN 5 Days #5 11/07/19 [email or web address] Allergies Allergy/AdvReac Type Severity Reaction Status Date / Time Latex, Natural Rubber Allergy Rash/Hives Verified 02/09/20 00:23 nitrofurantoin Allergy Rash/Hives Verified 02/09/20 00:23 macrocrystalline [From Macrodantin] Review of Systems ROS Statement: Those systems with pertinent positive or pertinent negative responses have been documented in the HPI. ROS Other: All systems not noted in ROS Statement are negative. Past Medical History Past Medical History: Neurologic Disorder, Seizure Disorder, Sleep Apnea/CPAP/BIPAP Additional Past Medical History / Comment(s): spina bifida, mentally impaired, mom straight caths pt, past hx renal failure, hx of UTI's w/sepsis in Aug & sep 2013, no cpap, questionable seizure disorder- nothing has showed up on eegs. History of Any Multi-Drug Resistant Organisms: None Reported Past Surgical History: Back Surgery, Tonsillectomy Additional Past Surgical History / Comment(s): DRONE OPERATOR shunt w/several revisions, back surg. 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 right uretral reimplantation, cervical fusion, cystoscopy with double- J stent left [id number]. open removal of kidney stones 2016, tubes in ears. Past Anesthesia/Blood Transfusion Reactions: No Reported Reaction Past Psychological History: No Psychological Hx Reported Smoking Status: Never smoker Past Alcohol Use History: None Reported Past Drug Use History: None Reported - Past Family History Brother(s) Family Medical History: Seizure Disorder Father Family Medical History: Myocardial Infarction ([place]) Additional Family Medical History / Comment(s): Father of heart attack in 2015 General Exam - General Exam Comments Initial Comments: Constitutional: NAD, AOX3, Pt has pleasant affect. HEENT: NC/AT, trachea midline, neck supple, no lymphadenopathy. Posterior pharynx non erythematous, without exudates. External ears appear normal, without discharge. Mucous membranes moist. Eyes PERRLA, EOM intact. There is no scleral icterus. No pallor noted. Cardiopulmonary: RRR, no murmurs, rubs or gallops, no JVD noted. Lungs CTAB in anterior and posterior leija. No peripheral edema. Abdominal exam: Abdomen soft and non-distended. Abdomen non-tender to palpation in all 4 quadrants. Bowel sounds active in LLQ. No hepatosplenomegaly. No ecchymosis Neuro: CN II-XII intact. No nuchal rigidity. No raccon eyes, no waldron sign. No cervical spinal tenderness. Palpable DRONE OPERATOR shunt noted on the right lateral neck region. No skin changes, no crepitus, no fluctuance. MSK: No posterior calf tenderness bilaterally, homans sign negative bilaterally. Posterior tibialis and radial pulse +2 bilaterally. Sensation intact in upper and lower extremities. Full active ROM in upper and lower extremities, 5/5 stregnth. 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 She is concerned that may be changed. Patient reports these asymptomatic. Denies any headaches changes in vision, nausea vomiting. Denies any other complaints. Patient vital signs are stable, afebrile. Physical exam displayed the DRONE OPERATOR shunt is palpable on the right lateral neck region. I do not palpate any breaks or any crepitus. No external skin changes. No fluctuance. CXR display calcification around the catheter. Calcification increased compared to old exam. KUB displayed shunt catheter appears intact. Soft tissue neck displayed intact catheter. Patient is asymptomatic. He'll be discharged and will follow-up with neurosurgeon tomorrow and return to ER physician worsen. Precautions discussed. Case discussed with Dr. Quesada. Disposition Clinical Impression: S/P DRONE OPERATOR shunt Disposition: HOME SELF-CARE Condition: Stable Instructions (If sedation given, give patient instructions): Ventriculoperitoneal Shunt Placement for Hydrocephalus in Adults (DC) Additional Instructions: Follow up with neurosurgeon tomorrow. Return to ED if condition worsens in anyway. Is patient prescribed a controlled substance at d/c from ED?: No Referrals: Manfred Barraza MD [Primary Care Provider] - 1-2 days
--- NOTE | 2020-02-09 01:34 | XR ---
EXAMINATION TYPE: XR chest 2V DATE OF EXAM: 02/09/2020 COMPARISON: 09/18/2017 HISTORY: Swelling TECHNIQUE: Single view FINDINGS: There is a catheter on the right side of the neck. There is significant amount of calcifica tion around the catheter on the right side of the neck. Heart and mediastinum are normal. Lungs are c lear of infiltrate. There is no pleural effusion. Bony thorax is intact. IMPRESSION: Calcification around the catheter. Lower portion of the catheter not well seen. Exam limi kamilla by patient's size. No acute lung disease. Calcification increased compared to old exam.
--- NOTE | 2020-02-09 01:43 | XR ---
EXAMINATION TYPE: XR KUB DATE OF EXAM: 02/09/2020 COMPARISON: 09/16/2017 HISTORY: Shunt evaluation TECHNIQUE: 2 views supine FINDINGS: There is ventriculoperitoneal shunt catheter on the right side and loops of the catheter in the pelvis on the left side. Catheter appears intact. Bowel gas pattern is normal. There is no sign of intestinal obstruction or pneumoperitoneum. There is some retained fecal material in the large bow el. IMPRESSION: Mild constipation. Shunt catheter appears intact. Shunt catheter not changed in position. There is removal of a right side catheter that could be ureteral stent compared to old exam.
--- NOTE | 2020-02-09 01:47 | XR ---
EXAMINATION TYPE: XR soft tissue neck DATE OF EXAM: 02/09/2020 COMPARISON: NONE HISTORY: Shunt evaluation TECHNIQUE: 2 views FINDINGS: There is a ventricular peritoneal shunt catheter in the right side that appears intact. The re is extensive calcification around the catheter in the neck. There is posterior fusion surgery at t he cervical cranial junction. Epiglottis appears normal. Prevertebral soft tissues are not enlarged. Subglottic trachea appears nor mal. IMPRESSION: Catheter appears intact.
[2020-02-09 02:50] VITALS: BP 133/83; PULSE 78; RESP 20; TEMP 98
== END 2020-02-09 02:50 | disposition home or self-care (01) ==
LOC: EC 00:08
DX: R22.1 Localized swelling, mass and lump, neck (principal); G47.30 Sleep apnea, unspecified; Q05.9 Spina bifida, unspecified; Z98.2 Presence of cerebrospinal fluid drainage device; Z79.899 Other long term (current) drug therapy; Z91.040 Latex allergy status; Z91.048 Other nonmedicinal substance allergy status; Z88.1 Allergy status to other antibiotic agents
CPT/HCPCS: 70360; 71046; 74018; 99283

== ENCOUNTER → 2020-03-14 | Outpatient (CLI) | payer MEDICARE, OTHER ==
[2020-03-14 10:40] LABS: Appearance,Urine Turbid (Clear); Bacteria,Urine Many /hpf; Bilirubin,Urine Negative (Negative); Blood,Urine Small (Negative); Color,Urine Yellow; Glucose,Urine (UA) Negative (Negative); Ketones,Urine Negative (Negative); Leukocyte Esterase,Urine Large (Negative); Nitrite,Urine Negative (Negative); Protein,Urine 1+ (Negative); RBC,Urine 10 /hpf (0-5); Specific Gravity,Urine 1.015 (1.001-1.035); Urobilinogen,Urine <2.0 mg/dL (<2.0); WBC,Urine >182 /hpf (0-5)
[2020-03-14 10:46] LABS: Basophils % (A) 1 %; Eosinophils # (A) 0.2 k/uL (0-0.7); Eosinophils % (A) 3 %; HCT 50.7 % (39.0-53.0); HGB 16.4 gm/dL (13.0-17.5); Lymphocytes # (A) 1.3 k/uL (1.0-4.8); Lymphocytes % (A) 19 %; MCH 30.2 pg (25.0-35.0); MCHC 32.4 g/dL (31.0-37.0); MCV 93.4 fL (80.0-100.0); Mean Platelet Volume 7.7; Monocytes # (A) 0.4 k/uL (0-1.0); Monocytes % (A) 6 %; Neutrophils # (A) 5.1 k/uL (1.3-7.7); Neutrophils % (A) 71 %; Platelet Count 180 k/uL (150-450); RBC 5.43 m/uL (4.30-5.90); RDW 13.5 % (11.5-15.5); WBC 7.1 k/uL (3.8-10.6)
[2020-03-14 16:34] LABS: African American GFR (CKD) 107.6 (60.0-200.0); Albumin 4.6 g/dL (3.80-4.90); Albumin/Globulin Ratio 1.7 (1.60-3.17); Anion Gap 10.7 mmol/L (4.00-12.00); BUN/Creat Ratio 18.18 Ratio (12.00-20.00); Calcium 9.4 mg/dL (8.7-10.3); Carbon Dioxide 21.3 mmol/L (21.6-31.8); Globulin 2.7 g/dL (1.6-3.3); Non-African American GFR(CKD) 92.8 (60.0-200.0); Potassium 4.6 mmol/L (3.5-5.5); Total Bilirubin 0.4 mg/dL (0.2-1.2); Total Protein 7.3 g/dL (6.2-8.2)
[2020-03-14 16:41] LABS: T4, Free (Free Thyroxine) 1.4 ng/dL (0.80-1.80)
[2020-03-14 19:26] LABS: Hemoglobin A1C 4.9 % (4.0-6.0)
== END | disposition home or self-care (01) ==
LOC: LABWHC1 08:30
PROVIDERS: ATTEND Nurse Practitioner Adult Health
DX: Z01.818 Encounter for other preprocedural examination (principal); Z11.59 Encounter for screening for other viral diseases; I12.9 Hypertensive chronic kidney disease with stage 1 through stage 4 chronic kidney disease, or unspecified chronic kidney disease; N39.0 Urinary tract infection, site not specified
CPT/HCPCS: 36415; 80053; 81001; 83036; 84439; 84443; 85025; 86803; 87077; 87086; 87186

== ENCOUNTER 2020-12-17 12:09 | Emergency (ER) | payer MEDICARE, OTHER ==
--- NOTE | 2020-12-17 15:08 | XR ---
EXAMINATION TYPE: XR KUB DATE OF EXAM: 12/17/2020 Comparison: CT 11/07/2019 Clinical History: 25-year-old male Right flank pain Findings: Right-sided SCHEDULER CONVEYOR shunt catheter enters the abdomen with distal aspect projecting over the left iliac wi ng. Loops of disconnected catheter present within the left paramedian pelvis. A well-defined bony def ect of the right iliac wing is unchanged. There is moderate overall stool burden. No dilated small karyna wel. Posterior fusion defects mid and lower lumbar spine. No definite suspicious calcifications are s een. A couple of flecks of high density in the left lateral mid abdomen probably reflect ingested mat erial. Impression: 1. No definite suspicious calcifications radiographically apparent. 2. Moderate stool burden. Correlate for constipation. 3. Redemonstrated chronic bony defect involving the right iliac wing. Note that the patient's previou s 11/07/2019 CT shows a fat and cecal containing hernia through the defect. 4. No evidence for bowel obstruction. 5 Stable right-sided SCHEDULER CONVEYOR shunt catheter. After entering the abdomen, the tip projects over the left il iac wing. Separate, noncontinuous loops of catheter are present in the pelvis. Findings are unchanged .
--- NOTE | 2020-12-17 15:31 | ED ---
General Adult HPI - General Source: patient, RN notes reviewed Mode of arrival: ambulatory Limitations: no limitations <Sarabjit Gomez - Last Filed: 12/17/20 14:24> <Alessandro Luo - Last Filed: 12/17/20 21:44> - General Chief complaint: Back Pain/Injury Stated complaint: Abd Pain Time Seen by Provider: 12/17/20 14:23 - History of Present Illness Initial comments: Patient is 25 she'll male that presents immersed for with his mom for right flank pain. He does have a history of kidney stones and has a complicated past medical history. He denied any pain while sitting in his wheelchair. (Sarabjit Gomez) - Related Data Home Medications Medication Instructions Recorded Confirmed Oxybutynin Chloride [Ditropan XL] 15 mg PO DAILY 06/22/14 12/17/20 Losartan [Cozaar] 25 mg PO DAILY 03/17/18 12/17/20 Amoxicillin 875 mg PO Q12HR 12/17/20 12/17/20 Previous Rx's Medication Instructions Recorded Acetaminophen Tab [Tylenol] 650 mg PO Q6HR PRN tab 11/07/19 Cephalexin [Keflex] 500 mg PO Q6HR 1 Days #4 cap 12/17/20 Allergies Allergy/AdvReac Type Severity Reaction Status Date / Time Latex, Natural Rubber Allergy Rash/Hives Verified 12/17/20 16:55 nitrofurantoin Allergy Rash/Hives Verified 12/17/20 16:55 macrocrystalline [From Macrodantin] Review of Systems ROS Other: All systems not noted in ROS Statement are negative. <Sarabjit Gomez - Last Filed: 12/17/20 14:24> ROS Other: All systems not noted in ROS Statement are negative. <Alessandro Luo - Last Filed: 12/17/20 21:44> ROS Statement: Those systems with pertinent positive or pertinent negative responses have been documented in the HPI. Past Medical History Past Medical History: Neurologic Disorder, Seizure Disorder, Sleep Apnea/CPAP/BIPAP Additional Past Medical History / Comment(s): spina bifida, mentally impaired, mom straight caths pt, past hx renal failure, hx of UTI's w/sepsis in Aug & sep 2013, no cpap, questionable seizure disorder- nothing has showed up on eegs. 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 right uretral reimplantation, cervical fusion, cystoscopy with double- J stent left [id number]. open removal of kidney stones 2017, tubes in ears. Past Anesthesia/Blood Transfusion Reactions: No Reported Reaction Past Psychological History: No Psychological Hx Reported Smoking Status: Never smoker Past Alcohol Use History: None Reported Past Drug Use History: None Reported - Past Family History Brother(s) Family Medical History: Seizure Disorder Father Family Medical History: Myocardial Infarction ([place]) Additional Family Medical History / Comment(s): Father of heart attack in 2015 <Sarabjit Gomez - Last Filed: 12/17/20 14:24> General Exam Limitations: no limitations General appearance: alert, in no apparent distress, obese Head exam: Present: atraumatic, normocephalic, normal inspection Eye exam: Present: normal appearance, PERRL, EOMI. Absent: scleral icterus, conjunctival injection, periorbital swelling Neck exam: Present: normal inspection. Absent: tenderness, meningismus, lymphadenopathy Respiratory exam: Present: normal lung sounds bilaterally. Absent: respiratory distress, wheezes, rales, rhonchi, stridor Cardiovascular Exam: Present: regular rate, normal rhythm, normal heart sounds. Absent: systolic murmur, diastolic murmur, rubs, gallop, clicks GI/Abdominal exam: Present: soft, normal bowel sounds. Absent: distended, tenderness, guarding, rebound, rigid Extremities exam: Present: normal inspection, normal capillary refill. Absent: full ROM, tenderness, pedal edema, joint swelling, calf tenderness Back exam: Present: normal inspection, CVA tenderness (R) Neurological exam: Present: alert, oriented X3, CN II-XII intact Psychiatric exam: Present: normal affect, normal mood Skin exam: Present: warm, dry, intact, normal color. Absent: rash <Sarabjit Gomez - Last Filed: 12/17/20 14:24> Course - Reevaluation(s) Time: 19:33 <Alessandro Luo - Last Filed: 12/17/20 21:44> Vital Signs 12/17/20 12/17/20 12/17/20 14:11 16:11 18:16 Temperature 98.6 F Pulse Rate 72 96 84 Respiratory 18 20 18 Rate Blood Pressure 120/88 129/90 131/81 O2 Sat by Pulse 100 97 96 Oximetry - Reevaluation(s) Reevaluation #1: 12/17/20 19:32 Mom concerned about the amount of pain the patient is in, 10 out of 10 pain, x- ray shows constipation, urine shows UTI. Mom concerned pain is out of proportion to both, CAT scan ordered. Pain medication given by mouth (Alessandro Luo) Medical Decision Making - Lab Data Result diagrams: 12/17/20 17:00 12/17/20 17:00 <Alessandro Luo - Last Filed: 12/17/20 21:44> - Medical Decision Making Patient with a urinary tract infection showing 182 WBCs with large leukocytes, serum WBC is 7.7 will treat for UTI. X-ray shows constipation mom states has medication at home for that and declines fleets in ER. CT abdomen and pelvis shows no change in splenomegaly, pancreas and gallbladder unremarkable no dilated bile ducts, no adrenal masses, 1 cm calculus to the left kidney with smaller calculi non-obstructing. An unchanged large right abdominal hernia not incarcerated. Discussed results with patient and his mother and were agreeable to being discharged with antibiotics for the urinary tract infection, and pain medication to go home with. will follow up with primary care doctor this week. Case discussed with Dr. Ortiz was agreeable with this plan. (Alessandro Luo) - Lab Data Lab Results 12/17/20 12/17/20 12/17/20 Range/Units 16:44 17:00 17:00 WBC 7.7 (3.8-10.6) k/uL RBC 4.87 (4.30-5.90) m/uL Hgb 15.6 (13.0-17.5) gm/dL Hct 44.3 (39.0-53.0) % MCV 91.0 (80.0-100.0) fL MCH 31.9 (25.0-35.0) pg MCHC 35.1 (31.0-37.0) g/dL RDW 12.8 (11.5-15.5) % Plt Count 221 (150-450) k/uL MPV 7.2 Neutrophils % 78 % Lymphocytes % 15 % Monocytes % 4 % Eosinophils % 2 % Basophils % 1 % Neutrophils # 5.9 (1.3-7.7) k/uL Lymphocytes # 1.2 (1.0-4.8) k/uL Monocytes # 0.3 (0-1.0) k/uL Eosinophils # 0.2 (0-0.7) k/uL Basophils # 0.0 (0-0.2) k/uL Sodium 139 (137-145) mmol/L Potassium 4.6 (3.5-5.1) mmol/L Chloride 108 H (98-107) mmol/L Carbon Dioxide 19 L (22-30) mmol/L Anion Gap 12 mmol/L BUN 22 H (9-20) mg/dL Creatinine 0.84 (0.66-1.25) mg/dL Est GFR (CKD-EPI)AfAm >90 (>60 ml/min/1.73 sqM) Est GFR (CKD-EPI)NonAf >90 (>60 ml/min/1.73 sqM) Glucose 103 H (74-99) mg/dL Calcium 9.3 (8.4-10.2) mg/dL Total Bilirubin 0.6 (0.2-1.3) mg/dL AST 25 (17-59) U/L ALT 28 (4-49) U/L Alkaline Phosphatase 83 (38-126) U/L Total Protein 7.9 (6.3-8.2) g/dL Albumin 4.5 (3.5-5.0) g/dL Urine Color Yellow Urine Appearance Turbid (Clear) Urine pH 6.0 (5.0-8.0) Ur Specific [place] 1.015 (1.001-1.035) Urine Protein 2+ H (Negative) Urine Glucose (UA) Negative (Negative) Urine Ketones Negative (Negative) Urine Blood Small H (Negative) Urine Nitrite Negative (Negative) Urine Bilirubin Negative (Negative) Urine Urobilinogen <2.0 (<2.0) mg/dL Ur Leukocyte Esterase Large H (Negative) Urine RBC 6 H (0-5) /hpf Urine WBC >182 H (0-5) /hpf Urine WBC Clumps Many H (None) /hpf Urine Bacteria Many H (None) /hpf Disposition <Sarabjit Gomez - Last Filed: 12/17/20 14:24> Is patient prescribed a controlled substance at d/c from ED?: No Time of Disposition: 21:26 <Alessandro Luo - Last Filed: 12/17/20 21:44> Clinical Impression: UTI (urinary tract infection), Constipation Disposition: HOME SELF-CARE Condition: Good Instructions (If sedation given, give patient instructions): Constipation (ED), Catheter-associated Urinary Tract Infection (ED) Additional Instructions: Take medication as prescribed for urinary tract infection, follow up with the primary care doctor this week. Prescriptions: Cephalexin [Keflex] 500 mg PO Q6HR 1 Days #4 cap Referrals: None,Stated [Primary Care Provider] - 1-2 days
[2020-12-17 17:04] LABS: Appearance,Urine Turbid (Clear); Bacteria,Urine Many /hpf; Bilirubin,Urine Negative (Negative); Blood,Urine Small (Negative); Color,Urine Yellow; Glucose,Urine (UA) Negative (Negative); Ketones,Urine Negative (Negative); Leukocyte Esterase,Urine Large (Negative); Nitrite,Urine Negative (Negative); Protein,Urine 2+ (Negative); RBC,Urine 6 /hpf (0-5); Specific Gravity,Urine 1.015 (1.001-1.035); Urobilinogen,Urine <2.0 mg/dL (<2.0); WBC,Urine >182 /hpf (0-5)
[2020-12-17 17:09] LABS: Basophils % (A) 1 %; Eosinophils # (A) 0.2 k/uL (0-0.7); Eosinophils % (A) 2 %; HCT 44.3 % (39.0-53.0); HGB 15.6 gm/dL (13.0-17.5); Lymphocytes # (A) 1.2 k/uL (1.0-4.8); Lymphocytes % (A) 15 %; MCH 31.9 pg (25.0-35.0); MCHC 35.1 g/dL (31.0-37.0); Mean Platelet Volume 7.2; Monocytes # (A) 0.3 k/uL (0-1.0); Monocytes % (A) 4 %; Neutrophils # (A) 5.9 k/uL (1.3-7.7); Neutrophils % (A) 78 %; Platelet Count 221 k/uL (150-450); RBC 4.87 m/uL (4.30-5.90); RDW 12.8 % (11.5-15.5); WBC 7.7 k/uL (3.8-10.6)
[2020-12-17 17:19] LABS: ALT 28 U/L (4-49); AST 25 U/L (17-59); African American GFR (CKD) >90 (>60 ml/min/1.73 sqM); Albumin 4.5 g/dL (3.5-5.0); Alkaline Phosphatase 83 U/L (38-126); Anion Gap 12 mmol/L; Blood Urea Nitrogen 22 mg/dL (9-20); Calcium 9.3 mg/dL (8.4-10.2); Carbon Dioxide 19 mmol/L (22-30); Chloride 108 mmol/L (98-107); Glucose 103 mg/dL (74-99); Non-African American GFR(CKD) >90 (>60 ml/min/1.73 sqM); Potassium 4.6 mmol/L (3.5-5.1); Sodium 139 mmol/L (137-145); Total Bilirubin 0.6 mg/dL (0.2-1.3); Total Protein 7.9 g/dL (6.3-8.2)
[2020-12-17 18:18] VITALS: RESP 18
[2020-12-17] MEDS ORDERED: HYDROcodone/APAP 5-325MG 1 EACH TAB PO STA (18:58)
--- NOTE | 2020-12-17 21:01 | CT ---
EXAMINATION TYPE: CT abdomen pelvis w con DATE OF EXAM: 12/17/2020 COMPARISON: 11/07/2019 HISTORY: Generalized pain CT DLP: 3320 mGycm Automated exposure control for dose reduction was used. CONTRAST: Performed with IV Contrast, patient injected with 80 mL of Isovue 300. Images obtained from the diaphragm to the floor the pelvis with IV contrast. Lung bases are clear of consolidation. There is no pleural effusion. Heart is slightly enlarged. Spleen is enlarged and measures 14.5 cm. Liver is intact. There is no pancreatic mass. Gallbladder ap pears normal. Stomach is intact. The bile ducts are not dilated. There is no adrenal mass. There is irregular cortical thinning in both kidneys. There is mild bilater al hydronephrosis. Ureters are not dilated. There is 1 cm calculus lower pole left kidney. There are other smaller left renal calculi. There is no retroperitoneal adenopathy. There is posterior lateral right side abdominal hernia above the right iliac bone. This contains the right colon. Appendix is in the hernia sac and appears normal. There is no incarceration. There is no retroperitoneal adenopathy . There are small cystic changes in both kidneys that measure up to 1.5 cm. Bladder distends smoothly. There is ventriculoperitoneal catheter in the left lower quadrant anterio rly. There is no bowel obstruction. There is no mesenteric edema. There is no ascites or free air. There is multilevel spina bifida in the lumbar spine. There is mild psoas muscle atrophy or hypoplasi a. There is no thoracic or lumbar compression fracture. There is significant narrowing of the spinal canal in the lower thoracic spine with multilevel severe spinal stenosis. This is more noticeable at T12 and T11 levels. IMPRESSION: Renal atrophy. Nonobstructing left renal calculi unchanged. There is improvement in the interstitial infiltrates and atelectasis at the lung bases compared to old exam. Splenomegaly unchanged. Large posterior right side abdominal wall hernia unchanged.
[2020-12-17] MEDS ORDERED: NA PHOS,M-B/NA PHOS,DI-BA 133 ML ENEMA RECTAL STA (21:17)
[2020-12-17] MEDS ORDERED: ACET/COD 300 MG/30 MG STARTER PACK 6 TAB BTL PO STA (21:25)
[2020-12-17] MEDS ORDERED: cefTRIAXone IN SWFI 1,000 MG/10 ML SYRINGE IVP STA (21:46)
[2020-12-17 21:49] VITALS: BP 120/74; PULSE 91; TEMP 98
== END 2020-12-17 22:10 | disposition home or self-care (01) ==
LOC: EC 12:09
DX: N39.0 Urinary tract infection, site not specified (principal); K59.00 Constipation, unspecified; G40.909 Epilepsy, unspecified, not intractable, without status epilepticus; G47.30 Sleep apnea, unspecified; Z87.442 Personal history of urinary calculi
CPT/HCPCS: 36415; 80053; 85025; 81001; 87086; 74018; 74177; 99284; 96374; J0696; Q9967

== ENCOUNTER 2022-02-25 20:13 | Emergency (ER) | payer MEDICARE, OTHER ==
[2022-02-25 20:28] VITALS: RESP 18; TEMP 99.4
--- NOTE | 2022-02-25 21:22 | ED ---
Seizure HPI - General Chief Complaint: Seizure Stated Complaint: Syncope Time Seen by Provider: 02/25/22 20:56 Source: EMS Mode of arrival: EMS Limitations: no limitations - History of Present Illness Initial Comments: This patient is 26-year-old man with history of spina bifida who presents to be evaluated for an episode which his mother states dates may have been a seizure. The patient around 7:30 tonight was being in the bed. His respiratory recall the mother over to the bedside as the patient was staring off. She states that he was appearing stare off for between 1-2 minutes. After that he took a number of moments to become fully aware and to be able to speak clearly. His speech was initially she states garbled. There was question whether he may have struck his head against the side board. Currently the patient is awake and alert and does not have complaints. He states that he feels back at his baseline. There is no history of previous seizure disorder, though his mother states he did have one absence seizure when he was younger. Patient's brother does have seizures of all types. MD Complaint: possible seizure -: minutes(s) Description of Episode: loss of consciousness, post-event confusion Duration of Episode: 2 -: minutes(s) Witnessed: yes - by bystander Trauma: Yes Seizure History: none Place: home Associated Symptoms: denies other symptoms - Related Data Home Medications Medication Instructions Recorded Confirmed Oxybutynin Chloride [Ditropan XL] 15 mg PO DAILY 06/22/14 02/25/22 Losartan [Cozaar] 25 mg PO DAILY 03/17/18 02/25/22 Acetaminophen Tab [Tylenol] 650 mg PO Q6H PRN 02/25/22 02/25/22 Allergies Allergy/AdvReac Type Severity Reaction Status Date / Time Latex, Natural Rubber Allergy Rash/Hives Verified 02/25/22 22:50 nitrofurantoin Allergy Rash/Hives Verified 02/25/22 22:50 macrocrystalline [From Macrodantin] Review of Systems ROS Statement: Those systems with pertinent positive or pertinent negative responses have been documented in the HPI. ROS Other: All systems not noted in ROS Statement are negative. Constitutional: Denies: fever Eyes: Denies: vision change ENT: Denies: congestion Respiratory: Denies: cough, dyspnea Cardiovascular: Denies: chest pain, palpitations, orthopnea Gastrointestinal: Denies: abdominal pain, vomiting, diarrhea Genitourinary: Denies: dysuria, hematuria Musculoskeletal: Denies: back pain Skin: Denies: rash Neurological: Denies: headache, weakness, numbness, confusion Past Medical History Past Medical History: Neurologic Disorder, Seizure Disorder, Sleep Apnea/ CPAP/BIPAP Additional Past Medical History / Comment(s): spina bifida, mentally impaired, mom straight caths pt, past hx renal failure, hx of UTI's w/sepsis in Aug & sep 2013, no cpap, questionable seizure disorder- nothing has showed up on eegs. History of Any Multi-Drug Resistant Organisms: None Reported Past Surgical History: Back Surgery, Tonsillectomy Additional Past Surgical History / Comment(s): [employer] shunt w/several revisions, back surg. 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 right uretral reimplantation, cervical fusion, cystoscopy with double- J stent left [id number]. open removal of kidney stones 2016, tubes in ears. Past Anesthesia/Blood Transfusion Reactions: No Reported Reaction Past Psychological History: No Psychological Hx Reported Smoking Status: Never smoker Past Alcohol Use History: None Reported Past Drug Use History: None Reported - Past Family History Brother(s) Family Medical History: Seizure Disorder Father Family Medical History: Myocardial Infarction ([place]) Additional Family Medical History / Comment(s): Father of heart attack in 2015 General Exam Limitations: altered mental status, physical limitation General appearance: alert, in no apparent distress Head exam: Present: atraumatic, normocephalic Eye exam: Present: normal appearance. Absent: scleral icterus, conjunctival injection ENT exam: Present: normal oropharynx, mucous membranes moist Neck exam: Present: normal inspection, full ROM. Absent: meningismus Respiratory exam: Present: normal lung sounds bilaterally. Absent: respiratory distress, wheezes, rales, rhonchi, stridor Cardiovascular Exam: Present: regular rate, normal rhythm, normal heart sounds. Absent: systolic murmur, diastolic murmur, rubs, gallop GI/Abdominal exam: Present: soft. Absent: distended, tenderness, guarding, rebound, rigid, mass Back exam: Present: normal inspection Neurological exam: Present: alert, oriented X3, CN II-XII intact. Absent: motor sensory deficit Skin exam: Present: warm, dry, intact, normal color. Absent: rash Course Vital Signs 02/25/22 20:23 Temperature 99.4 F Pulse Rate 104 H Respiratory 18 Rate Blood Pressure 123/95 O2 Sat by Pulse 98 Oximetry Medical Decision Making - Lab Data Result diagrams: 02/25/22 21:23 02/25/22 21:23 Lab Results 02/25/22 02/25/22 Range/Units 21:23 21:23 WBC 7.5 (3.8-10.6) k/uL RBC 5.22 (4.30-5.90) m/uL Hgb 16.0 (13.0-17.5) gm/dL Hct 48.6 (39.0-53.0) % MCV 93.1 (80.0-100.0) fL MCH 30.7 (25.0-35.0) pg MCHC 33.0 (31.0-37.0) g/dL RDW 13.7 (11.5-15.5) % Plt Count 207 (150-450) k/uL MPV 7.9 Neutrophils % 71 % Lymphocytes % 16 % Monocytes % 8 % Eosinophils % 3 % Basophils % 1 % Neutrophils # 5.4 (1.3-7.7) k/uL Lymphocytes # 1.2 (1.0-4.8) k/uL Monocytes # 0.6 (0-1.0) k/uL Eosinophils # 0.3 (0-0.7) k/uL Basophils # 0.0 (0-0.2) k/uL Sodium 134 L (137-145) mmol/L Potassium 5.6 H (3.5-5.1) mmol/L Chloride 103 (98-107) mmol/L Carbon Dioxide 23 (22-30) mmol/L Anion Gap 8 mmol/L BUN 18 (9-20) mg/dL Creatinine 0.91 (0.66-1.25) mg/dL Est GFR (CKD-EPI)AfAm >90 (>60 ml/min/1.73 sqM) Est GFR (CKD-EPI)NonAf >90 (>60 ml/min/1.73 sqM) Glucose 107 H (74-99) mg/dL Calcium 8.7 (8.4-10.2) mg/dL Magnesium 1.9 (1.6-2.3) mg/dL Total Bilirubin 1.4 H (0.2-1.3) mg/dL AST 54 (17-59) U/L ALT 36 (4-49) U/L Alkaline Phosphatase 58 (38-126) U/L Total Protein 8.1 (6.3-8.2) g/dL Albumin 4.6 (3.5-5.0) g/dL - EKG Data -: EKG Interpreted by Me EKG shows normal: sinus rhythm (With sinus arrhythmia), axis (Normal), intervals (Normal), QRS complexes (See below), ST-T waves (Normal) Rate: normal (Rate 98 bpm) Interpretation: other (There is possible right bundle-branch block, incomplete) Disposition Clinical Impression: Seizure Disposition: HOME SELF-CARE Condition: Good Instructions (If sedation given, give patient instructions): Seizure/Epilepsy Discharge Instructions & Follow-Up Is patient prescribed a controlled substance at d/c from ED?: No Referrals: None,Stated [Primary Care Provider] - 1-2 days Time of Disposition: 23:14
[2022-02-25 21:29] LABS: Basophils % (A) 1 %; Eosinophils # (A) 0.3 k/uL (0-0.7); Eosinophils % (A) 3 %; HCT 48.6 % (39.0-53.0); Lymphocytes # (A) 1.2 k/uL (1.0-4.8); Lymphocytes % (A) 16 %; MCH 30.7 pg (25.0-35.0); MCV 93.1 fL (80.0-100.0); Mean Platelet Volume 7.9; Monocytes # (A) 0.6 k/uL (0-1.0); Monocytes % (A) 8 %; Neutrophils # (A) 5.4 k/uL (1.3-7.7); Neutrophils % (A) 71 %; Platelet Count 207 k/uL (150-450); RBC 5.22 m/uL (4.30-5.90); RDW 13.7 % (11.5-15.5); WBC 7.5 k/uL (3.8-10.6)
[2022-02-25 21:37] LABS: ALT 36 U/L (4-49); AST 54 U/L (17-59); African American GFR (CKD) >90 (>60 ml/min/1.73 sqM); Albumin 4.6 g/dL (3.5-5.0); Alkaline Phosphatase 58 U/L (38-126); Anion Gap 8 mmol/L; Blood Urea Nitrogen 18 mg/dL (9-20); Calcium 8.7 mg/dL (8.4-10.2); Carbon Dioxide 23 mmol/L (22-30); Chloride 103 mmol/L (98-107); Glucose 107 mg/dL (74-99); Magnesium 1.9 mg/dL (1.6-2.3); Non-African American GFR(CKD) >90 (>60 ml/min/1.73 sqM); Sodium 134 mmol/L (137-145); Total Bilirubin 1.4 mg/dL (0.2-1.3); Total Protein 8.1 g/dL (6.3-8.2)
[2022-02-25 21:38] LABS: Potassium 5.6 mmol/L (3.5-5.1)
--- NOTE | 2022-02-25 21:59 | CT ---
EXAMINATION TYPE: CT brain wo con DATE OF EXAM: 02/25/2022 COMPARISON: 12/16/2012 HISTORY: seizure CT DLP: 1166.4 mGycm Automated exposure control for dose reduction was used. Images of the brain obtained without contrast. There is posterior fusion surgery at the skull base. Ventricles have normal size. No hydrocephalus. T here is right-sided ventricular shunt catheter. There are 2 shunt catheters. One catheter has tip in the right lateral ventricle and the second catheter is in the right posterior frontal lobe sulcus. Th ere is no mass effect nor midline shift. No sign of intracranial hemorrhage. The calvarium appears in tact. There is surgery at the occiput. IMPRESSION: Previous surgery. No acute intracranial abnormality. No change compared to old exam. No hydrocephalus .
[2022-02-25 23:30] VITALS: BP 120/78; PULSE 87
== END 2022-02-25 23:30 | disposition home or self-care (01) ==
LOC: EC 20:13
DX: R56.9 Unspecified convulsions (principal); Z82.49 Family history of ischemic heart disease and other diseases of the circulatory system; Z91.040 Latex allergy status; Z88.3 Allergy status to other anti-infective agents
CPT/HCPCS: 36415; 70450; 80053; 83735; 85025; 93005

== ENCOUNTER → 2022-04-09 | Outpatient (CLI) | payer MEDICARE, OTHER | LOC: NEUROMAIN 08:05 | PROVIDERS: ATTEND Family Medicine | DX: Z53.9 Procedure and treatment not carried out, unspecified reason (principal) ==

== ENCOUNTER 2022-09-21 15:32 | Emergency (ER) | payer MEDICARE, OTHER ==
[2022-09-21 15:42] VITALS: BP 126/92; PULSE 100; TEMP 97.7
--- NOTE | 2022-09-21 17:00 | ED ---
General Adult HPI - General Chief complaint: Urogenital Stated complaint: UTI Time Seen by Provider: 09/21/22 16:02 Source: patient, family, RN notes reviewed Mode of arrival: wheelchair Limitations: no limitations - History of Present Illness Initial comments: 27-year-old male presents to the emergency department accompanied by his mother and aunt for evaluation of multiple complaints. History of spina bifida with [employer] shunt and previous back surgeries. Reports history of kidney stones as well. Mother is concerned that the patient has a urinary tract infection as he has strong, foul-smelling urine. Recently had several episodes of diarrhea. Now has skin breakdown in skinfolds of his back around surgical scars and behind his knees. Mother has been applying Nystatin powder with no improvement. Also has a wound on his left great toe that has been poorly healing for the past week. Mother states the patient has a history of "ventral hernia of the lumbar spine" and mother is concerned that this is becoming an issue. She is also concerned as he has a history of sepsis. Denies fever, chills, headache, chest pain, shortness of breath, appetite changes, abdominal pain, or vomiting. - Related Data Home Medications Medication Instructions Recorded Confirmed Oxybutynin Chloride [Ditropan XL] 15 mg PO DAILY 06/22/14 02/25/22 Losartan [Cozaar] 25 mg PO DAILY 03/17/18 02/25/22 Acetaminophen Tab [Tylenol] 650 mg PO Q6H PRN 02/25/22 02/25/22 Previous Rx's Medication Instructions Recorded Cephalexin [Keflex] 500 mg PO Q6HR 5 Days #20 cap 09/21/22 Nystatin 100,000Unit/gm Cream 1 applic TOPICAL BID #15 gram 09/21/22 [Mycostatin Cream] Allergies Allergy/AdvReac Type Severity Reaction Status Date / Time Latex, Natural Rubber Allergy Rash/Hives Verified 02/25/22 22:50 nitrofurantoin Allergy Rash/Hives Verified 02/25/22 22:50 macrocrystalline [From Macrodantin] Review of Systems ROS Statement: Those systems with pertinent positive or pertinent negative responses have been documented in the HPI. ROS Other: All systems not noted in ROS Statement are negative. Past Medical History Past Medical History: Neurologic Disorder, Seizure Disorder, Sleep Apnea/CPAP/BIPAP Additional Past Medical History / Comment(s): spina bifida, mentally impaired, mom straight caths pt, past hx renal failure, hx of UTI's w/sepsis in Aug & sep 2013, no cpap, questionable seizure disorder- nothing has showed up on eegs. History of Any Multi-Drug Resistant Organisms: None Reported Past Surgical History: Back Surgery, Tonsillectomy Additional Past Surgical History / Comment(s): [employer] shunt w/several revisions, back surg. 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 right uretral reimplantation, cervical fusion, cystoscopy with double- J stent left [id number]. open removal of kidney stones 2016, tubes in ears. Past Anesthesia/Blood Transfusion Reactions: No Reported Reaction Past Psychological History: No Psychological Hx Reported Smoking Status: Never smoker Past Alcohol Use History: None Reported Past Drug Use History: None Reported - Past Family History Brother(s) Family Medical History: Seizure Disorder Father Family Medical History: Myocardial Infarction ([place]) Additional Family Medical History / Comment(s): Father of heart attack in 2015 General Exam Limitations: physical limitation (h/o spina bifida and has mobility and cognitive limitations) General appearance: alert, in no apparent distress (well appearing, well nourished male in no acute distress. patient is cheerful, talkative, and appears pain-free.) Eye exam: Present: normal appearance. Absent: scleral icterus, conjunctival injection ENT exam: Present: mucous membranes moist Respiratory exam: Present: normal lung sounds bilaterally. Absent: respiratory distress, wheezes, rales, rhonchi, stridor, chest wall tenderness Cardiovascular Exam: Present: regular rate, normal rhythm, normal heart sounds. Absent: systolic murmur, diastolic murmur, rubs, gallop, clicks GI/Abdominal exam: Present: soft, normal bowel sounds, other (large abdominal habitus). Absent: distended, tenderness, guarding, rebound, rigid Left Lower Leg exam: Present: normal inspection (baseline for patient). Absent: tenderness Ankle exam: Present: normal inspection (baseline for patient) Foot/Toe exam: Absent: normal inspection (small ulceration on lateral aspect of left great toe. Open area with no wound drainage. Raised border slightly discolored.) Neurovascular tendon exam: Present: no vascular compromise Neurological exam: Present: alert, other (baseline orientation; interacting verbally and pleasantly.) Psychiatric exam: Present: normal affect, normal mood Skin exam: Present: warm, normal color. Absent: dry (excess moisture accumulation as patient is diaper dependent with multiple episodes of diarrh ea.), intact (erythematous areas of skin breakdown along folds of extensive surgical scars on lumbar region. evidence of yeast-appearing accumulation in folds. skin is similar in appearance in the popliteal regions bilaterally) Course Vital Signs 09/21/22 09/21/22 15:37 19:06 Temperature 97.7 F Pulse Rate 100 Respiratory 19 18 Rate Blood Pressure 126/92 O2 Sat by Pulse 100 Oximetry - Reevaluation(s) Reevaluation #1: 09/21/22 1740 Results were discussed at length with patient's mother. Explained that urinalysis was positive for UTI and patient will be started on an antibiotic that would cover infectious processes of the urinary tract and the skin (great toe wound). Discussed nystatin use for simon infection as well as symptomatic management including reducing prolonged exposure to moisture and absorptive material between folds. Also explained that I was unable to locate any imaging of the lumbar spine; encouraged outpatient follow up as patient appears pain- free with no accompanying symptoms. Patient's mother is agreeable with this plan of care. Medical Decision Making - Medical Decision Making This is a pleasant well appearing 27-year-old male with a past medical history of spina bifida, cognitive impairment, and mobility limitations who presents to the emergency department accompanied by his mother and his aunt for evaluation of multiple complaints including UTI, skin breakdown, and a wound to the left g reat toe. Discussed plan of care with patient's mother. Laboratory studies and urinalysis were obtained. Mother was concerned for septicemia. Lactic acid is 0.8, WBC 9.1. Urinalysis is nitrite positive with large leukocyte esterase, greater than 182 urine WBCs per hpf, many urine WBC clumps, and many urine bacteria. Urine culture was sent. Patient was given a dose of Rocephin and will be started on Keflex. There are erythematous areas of skin breakdown in moisture prone folds of the lumbar region and bilateral popliteal spaces/folds. Appearance is consistent with Simon. Patient was given a dose of Diflucan and prescribed nystatin cream. Symptomatic management was also discussed at length. There is a small ulcerated wound on the lateral aspect of the left great toe which has been present for approximately a week. There is no drainage from the wound and surrounding skin is not erythematous. Keflex was prescribed for UTI which also serves to cover infectious process of the skin. Discussed imaging of the spine, however this was deferred for the outpatient as MRI would be most appropriate. Follow-up care discussed with patient's mother. She verbalizes understanding and agrees with this plan. Attending: Kaylee. Was pt. sent in by a medical professional or institution? @ No Did you speak to anyone other than the patient for history? @ Mother and aunt Did you review nursing and triage notes? @ Yes Were old charts reviewed? @Charts from previous admissions were reviewed. Differential Diagnosis? @ Differential diagnoses for urinary symptoms include UTI, kidney stone, or pyelonephritis. Differential diagnoses for skin breakdown include fungal infection, dermatitis, or cellulitis. Differential diagnoses for great toe wound include abscess, soft tissue infection, or vascular ulcer. EKG interpreted by me (3pts min.)? @ None X-rays interpreted by me (1pt min.)? @ None CT interpreted by me (1pt min.)? @ None U/S interpreted by me (1pt. min.)? @ None What testing was considered but not performed? (CT, X-rays, U/S, labs)? Why? @ Discussed CT of lumbar spine as mother was concerned about "ventral hernia on the lumbar spine," though there is no record of any imaging done of the lumbar spine. This was discussed with patient's mother. Explained that outpatient MRI would be best suited and mother is agreeable with this plan of care. What meds were considered but not given? Why? @Considered fluoroquinolone to treat UTI, however cephalosporin has dual coverage used to treat UTI and skin infection. Did you discuss the management of the patient with other professionals? @No Did you reconcile home meds? @No Was smoking cessation discussed for >3mins.? @No Was critical care preformed (if so, how long)? @No Were there social determinants of health that impacted care today? How? (H omelessness, low income, unemployed, alcoholism, drug addiction, transportation, low edu. Level, literacy, decrease access to med. care, long term, rehab)? @No Was there de-escalation of care discussed even if they declined? (Discuss DNR or withdrawal of care, Hospice)? @ No What co-morbidities impacted this encounter? (DM, HTN, Smoking, COPD, CAD, Cancer, CVA, Hep., AIDS, mental health diagnosis, sleep apnea, morbid obesity)? @Spina bifida, cognitive impairment, mobility limitations Was patient admitted / discharged? @Discharged Undiagnosed new problem with uncertain prognosis? @None Drug Therapy requiring intensive monitoring for toxicity (Heparin, Nitro, Insulin, Cardizem)? @None Were any procedures done? @None Diagnosis/symptom? @UTI Acute, or Chronic, or Acute on Chronic? @Acute Uncomplicated (without systemic symptoms) or Complicated (systemic symptoms)? @Uncomplicated Side effects of treatment? @None Exacerbation, Progression, or Severe Exacerbation] @Not applicable Poses a threat to life or bodily function? @Not at this time. Diagnosis/symptom? @Simon dermatitis Acute, or Chronic, or Acute on Chronic? @Acute Uncomplicated (without systemic symptoms) or Complicated (systemic symptoms)? @Uncomplicated Side effects of treatment? @None Exacerbation, Progression, or Severe Exacerbation] @Exacerbation Poses a threat to life or bodily function? @No Diagnosis/symptom? @Left foot, great toe wound Acute, or Chronic, or Acute on Chronic? @Acute Uncomplicated (without systemic symptoms) or Complicated (systemic symptoms)? @Uncomplicated Side effects of treatment? @None Exacerbation, Progression, or Severe Exacerbation] @Not applicable Poses a threat to life or bodily function? @Not at this time. - Lab Data Result diagrams: 09/21/22 17:14 09/21/22 17:14 Lab Results 09/21/22 09/21/22 09/21/22 Range/Units 16:56 17:14 17:14 WBC 9.1 (3.8-10.6) k/uL RBC 4.70 (4.30-5.90) m/uL Hgb 14.9 (13.0-17.5) gm/dL Hct 42.0 (39.0-53.0) % MCV 89.2 (80.0-100.0) fL MCH 31.7 (25.0-35.0) pg MCHC 35.6 (31.0-37.0) g/dL RDW 13.6 (11.5-15.5) % Plt Count 165 (150-450) k/uL MPV 7.9 Neutrophils % 80 % Lymphocytes % 11 % Monocytes % 5 % Eosinophils % 2 % Basophils % 1 % Neutrophils # 7.2 (1.3-7.7) k/uL Lymphocytes # 1.0 (1.0-4.8) k/uL Monocytes # 0.5 (0-1.0) k/uL Eosinophils # 0.2 (0-0.7) k/uL Basophils # 0.1 (0-0.2) k/uL Sodium 140 (137-145) mmol/L Potassium 4.0 (3.5-5.1) mmol/L Chloride 108 H (98-107) mmol/L Carbon Dioxide 26 (22-30) mmol/L Anion Gap 6 mmol/L BUN 23 H (9-20) mg/dL Creatinine 1.07 (0.66-1.25) mg/dL Est GFR (CKD-EPI)AfAm >90 (>60 ml/min/1.73 sqM) Est GFR (CKD-EPI)NonAf >90 (>60 ml/min/1.73 sqM) Glucose 107 H (74-99) mg/dL Plasma Lactic Acid Yogi (0.7-2.0) mmol/L Calcium 8.7 (8.4-10.2) mg/dL Total Bilirubin 0.5 (0.2-1.3) mg/dL AST 21 (17-59) U/L ALT 37 (4-49) U/L Alkaline Phosphatase 79 (38-126) U/L Total Protein 7.1 (6.3-8.2) g/dL Albumin 4.0 (3.5-5.0) g/dL Urine Color Yellow Urine Appearance Turbid (Clear) Urine pH 6.5 (5.0-8.0) Ur Specific [place] 1.016 (1.001-1.035) Urine Protein 2+ H (Negative) Urine Glucose (UA) Negative (Negative) Urine Ketones Negative (Negative) Urine Blood Small H (Negative) Urine Nitrite Positive (Negative) Urine Bilirubin Negative (Negative) Urine Urobilinogen <2.0 (<2.0) mg/dL Ur Leukocyte Esterase Large H (Negative) Urine RBC 18 H (0-5) /hpf Urine WBC >182 H (0-5) /hpf Urine WBC Clumps Many H (None) /hpf Urine Bacteria Many H (None) /hpf 09/21/22 Range/Units 17:14 WBC (3.8-10.6) k/uL RBC (4.30-5.90) m/uL Hgb (13.0-17.5) gm/dL Hct (39.0-53.0) % MCV (80.0-100.0) fL MCH (25.0-35.0) pg MCHC (31.0-37.0) g/dL RDW (11.5-15.5) % Plt Count (150-450) k/uL MPV Neutrophils % % Lymphocytes % % Monocytes % % Eosinophils % % Basophils % % Neutrophils # (1.3-7.7) k/uL Lymphocytes # (1.0-4.8) k/uL Monocytes # (0-1.0) k/uL Eosinophils # (0-0.7) k/uL Basophils # (0-0.2) k/uL Sodium (137-145) mmol/L Potassium (3.5-5.1) mmol/L Chloride (98-107) mmol/L Carbon Dioxide (22-30) mmol/L Anion Gap mmol/L BUN (9-20) mg/dL Creatinine (0.66-1.25) mg/dL Est GFR (CKD-EPI)AfAm (>60 ml/min/1.73 sqM) Est GFR (CKD-EPI)NonAf (>60 ml/min/1.73 sqM) Glucose (74-99) mg/dL Plasma Lactic Acid Yogi 0.8 (0.7-2.0) mmol/L Calcium (8.4-10.2) mg/dL Total Bilirubin (0.2-1.3) mg/dL AST (17-59) U/L ALT (4-49) U/L Alkaline Phosphatase (38-126) U/L Total Protein (6.3-8.2) g/dL Albumin (3.5-5.0) g/dL Urine Color Urine Appearance (Clear) Urine pH (5.0-8.0) Ur Specific [place] (1.001-1.035) Urine Protein (Negative) Urine Glucose (UA) (Negative) Urine Ketones (Negative) Urine Blood (Negative) Urine Nitrite (Negative) Urine Bilirubin (Negative) Urine Urobilinogen (<2.0) mg/dL Ur Leukocyte Esterase (Negative) Urine RBC (0-5) /hpf Urine WBC (0-5) /hpf Urine WBC Clumps (None) /hpf Urine Bacteria (None) /hpf Disposition Clinical Impression: UTI (urinary tract infection), Candidal dermatitis, Wound, open, toe Disposition: HOME SELF-CARE Condition: Stable Instructions (If sedation given, give patient instructions): Urinary Tract Infection in Men (ED), Skin Yeast Infection (ED) Additional Instructions: Take antibiotic as prescribed as it will cover UTI and skin infection (toe). Begin taking tomorrow as you received first dose via IV in the ED today. Keep to wound clean and dry. Apply Nystatin ointment to affected areas. Allow moist areas to air out as able. Minimize exposure to prolonged moisture. Follow-up with PCP for recheck in 48 hours. Return to the emergency department with any new, worsening, or concerning symptoms. Prescriptions: Cephalexin [Keflex] 500 mg PO Q6HR 5 Days #20 cap Nystatin 100,000Unit/gm Cream [Mycostatin Cream] 1 applic TOPICAL BID #15 gram Is patient prescribed a controlled substance at d/c from ED?: No Referrals: Manfred Barraza MD [Primary Care Provider] - 1-2 days Time of Disposition: 18:40
[2022-09-21 17:23] LABS: Basophils # (A) 0.1 k/uL (0-0.2); Basophils % (A) 1 %; Eosinophils # (A) 0.2 k/uL (0-0.7); Eosinophils % (A) 2 %; HGB 14.9 gm/dL (13.0-17.5); Lymphocytes % (A) 11 %; MCH 31.7 pg (25.0-35.0); MCHC 35.6 g/dL (31.0-37.0); MCV 89.2 fL (80.0-100.0); Mean Platelet Volume 7.9; Monocytes # (A) 0.5 k/uL (0-1.0); Monocytes % (A) 5 %; Neutrophils # (A) 7.2 k/uL (1.3-7.7); Neutrophils % (A) 80 %; Platelet Count 165 k/uL (150-450); RDW 13.6 % (11.5-15.5); WBC 9.1 k/uL (3.8-10.6)
[2022-09-21 17:29] LABS: Appearance,Urine Turbid (Clear); Bacteria,Urine Many /hpf; Bilirubin,Urine Negative (Negative); Blood,Urine Small (Negative); Color,Urine Yellow; Glucose,Urine (UA) Negative (Negative); Ketones,Urine Negative (Negative); Leukocyte Esterase,Urine Large (Negative); Nitrite,Urine Positive (Negative); PH, Urine 6.5 (5.0-8.0); Protein,Urine 2+ (Negative); RBC,Urine 18 /hpf (0-5); Specific Gravity,Urine 1.016 (1.001-1.035); Urobilinogen,Urine <2.0 mg/dL (<2.0); WBC,Urine >182 /hpf (0-5)
[2022-09-21 17:32] LABS: ALT 37 U/L (4-49); AST 21 U/L (17-59); African American GFR (CKD) >90 (>60 ml/min/1.73 sqM); Alkaline Phosphatase 79 U/L (38-126); Anion Gap 6 mmol/L; Blood Urea Nitrogen 23 mg/dL (9-20); Calcium 8.7 mg/dL (8.4-10.2); Carbon Dioxide 26 mmol/L (22-30); Chloride 108 mmol/L (98-107); Glucose 107 mg/dL (74-99); Non-African American GFR(CKD) >90 (>60 ml/min/1.73 sqM); Sodium 140 mmol/L (137-145); Total Bilirubin 0.5 mg/dL (0.2-1.3); Total Protein 7.1 g/dL (6.3-8.2)
[2022-09-21] MEDS ORDERED: cefTRIAXone IN SWFI 1,000 MG/10 ML SYRINGE IVP STA (17:48)
[2022-09-21] MEDS ORDERED: NYSTATIN 100,000 UNIT/GM OINT 30 GM TUBE TOPICAL STA (17:49)
[2022-09-21] MEDS ORDERED: FLUCONAZOLE 150 MG TAB PO STA (18:40)
[2022-09-21 19:07] VITALS: RESP 18
== END 2022-09-21 19:07 | disposition home or self-care (01) ==
LOC: EC 15:32
DX: S91.109A Unspecified open wound of unspecified toe(s) without damage to nail, initial encounter (principal); N39.0 Urinary tract infection, site not specified; B37.2 Candidiasis of skin and nail; G47.30 Sleep apnea, unspecified; Z91.040 Latex allergy status; Z88.1 Allergy status to other antibiotic agents; X58.XXXA Exposure to other specified factors, initial encounter
CPT/HCPCS: 36415; 80053; 83605; 85025; 81001; 87086; 99284; 96374; J0696; 87077; 87186

== ENCOUNTER 2022-10-20 18:29 | Emergency (ER) | payer MEDICARE, OTHER ==
[2022-10-20 18:36] VITALS: BP 139/92; PULSE 110; RESP 16
[2022-10-20 18:41] VITALS: TEMP 98.8
--- NOTE | 2022-10-20 20:34 | ED ---
Skin/Abscess/FB HPI - General Chief complaint: Skin/Abscess/Foreign Body Stated complaint: Strep A skin infection Time Seen by Provider: 10/20/22 19:37 Source: patient Mode of arrival: wheelchair Limitations: no limitations - History of Present Illness Initial comments: Patient is a 27-year-old male presenting to the emergency room with h is mother with concerns of worsening rash despite use of nystatin ointment per mother along with Augmentin prescribed by the patient's primary care provider. She reports that she saw the primary care provider in regards to recurrent rash behind his knees which has worsened. She is also concerned regarding the development of a rash in the antecubital region of his left arm along with underneath both breasts left worse than right and on his back which is on exam was in the gluteal fold. She reports that in addition to the Augmentin he has also been on Diflucan, Keflex and Bactrim. She denies any fevers chills or changes in behavior. He does have a significant past medical history including spina bifida, developmental delay, seizures, sleep apnea, UTIs with sepsis and recurrent rashes. - Related Data Home Medications Medication Instructions Recorded Confirmed Oxybutynin Chloride [Ditropan XL] 15 mg PO DAILY 06/22/14 02/25/22 Losartan [Cozaar] 25 mg PO DAILY 03/17/18 02/25/22 Acetaminophen Tab [Tylenol] 650 mg PO Q6H PRN 02/25/22 02/25/22 Previous Rx's Medication Instructions Recorded Cephalexin [Keflex] 500 mg PO Q6HR 5 Days #20 cap 09/21/22 Nystatin 100,000Unit/gm Cream 1 applic TOPICAL BID #15 gram 09/21/22 [Mycostatin Cream] Nystatin 100,000 Unit/gm Powd 1 applic TOPICAL TID #120 gm 10/20/22 [Mycostatin Powder] Nystatin 100,000Unit/gm Cream 1 applic TOPICAL TID #120 gm 10/20/22 [Mycostatin Cream] Allergies Allergy/AdvReac Type Severity Reaction Status Date / Time Latex, Natural Rubber Allergy Rash/Hives Verified 02/25/22 22:50 nitrofurantoin Allergy Rash/Hives Verified 02/25/22 22:50 macrocrystalline [From Macrodantin] Review of Systems ROS Statement: Those systems with pertinent positive or pertinent negative responses have been documented in the HPI. ROS Other: All systems not noted in ROS Statement are negative. Past Medical History Past Medical History: Neurologic Disorder, Seizure Disorder, Sleep A pnea/CPAP/BIPAP Additional Past Medical History / Comment(s): spina bifida, mentally impaired, mom straight caths pt, past hx renal failure, hx of UTI's w/sepsis in Aug & sep 2013, no cpap, questionable seizure disorder- nothing has showed up on eegs. 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 right uretral reimplantation, cervical fusion, cystoscopy with double- J stent left [id number]. open removal of kidney stones 2016, tubes in ears. Past Anesthesia/Blood Transfusion Reactions: No Reported Reaction Past Psychological History: No Psychological Hx Reported Smoking Status: Never smoker Past Alcohol Use History: None Reported Past Drug Use History: None Reported - Past Family History Brother(s) Family Medical History: Seizure Disorder Father Family Medical History: Myocardial Infarction ([place]) Additional Family Medical History / Comment(s): Father of heart attack in 2015 General Exam - General Exam Comments Initial Comments: GENERAL: No acute distress, obese, appears chronically ill. HEENT: Normocephalic, atraumatic. Pupils equal, round, reactive to light. Moist mucous membranes. LUNGS: No respiratory distress. Clear to auscultation, no adventitious sounds, no use of accessory muscles. HEART: Regular rate and rhythm without murmur, rub, or gallop. ABDOMEN: Normal bowel sounds. Soft, non-tender, non-distended. BACK: Normal inspection. EXTREMITIES: Poor mobility status, wheelchair bound. Stiff joints. NEUROLOGIC: Alert. CN II-XII grossly intact. PSYCHIATRIC: Childlike affect and behavior. DERMATOLOGIC: Intertigo noted to left antecubital area posterior bilateral knees and gluteal folds. Under breast scattered macules without full patch formation. Course Vital Signs 10/20/22 18:32 Temperature 98.8 F Pulse Rate 110 H Respiratory 16 Rate Blood Pressure 139/92 O2 Sat by Pulse 100 Oximetry Medical Decision Making - Medical Decision Making Was pt. sent in by a medical professional or institution (LEIGH Pugh, OPERATIONS SUPPORT MANAGER, urgent care, hospital, or skilled nursing...) When possible be specific @ -No Did you speak to anyone other than the patient for history (EMS, parent, family, police, friend...)? What history was obtained from this source @ -No Did you review nursing and triage notes (agree or disagree)? Why? @ -I reviewed and agree with nursing and triage notes Were old charts reviewed (outside hosp., previous admission, EMS record, old EKG, old radiological studies, urgent care reports/EKG's, skilled nursing records)? Report findings @ -No old charts were reviewed Differential Diagnosis (chest pain, altered mental status, abdominal pain women, abdominal pain men, vaginal bleeding, weakness, fever, dyspnea, syncope, headache, dizziness, GI bleed, back pain, seizure, CVA, palpatations, mental health)? @ -Differential rash: Cellulitis, contact dermatitis, intertigo this is not meant to be an all- inclusive list. EKG interpreted by me (3pts min.). @ -None done X-rays interpreted by me (1pt min.). @ -None done CT interpreted by me (1pt min.). @ -None done U/S interpreted by me (1pt. min.). @ -None done What testing was considered but not performed or refused? (CT, X-rays, U/S, labs)? Why? @ -None What meds were considered but not given or refused? Why? @ -None Did you discuss the management of the patient with other professionals (professionals i.e. LEIGH Pugh, OPERATIONS SUPPORT MANAGER, lab, RT, psych nurse, geriatric social work professor, program lead, teacher, inshore undersea warfare officer, caseworker)? Give summary @ -No Was smoking cessation discussed for >3mins.? @ -No Was critical care preformed (if so, how long)? @ -No Were there social determinants of health that impacted care today? How? (Homelessness, low income, unemployed, alcoholism, drug addiction, transportation, low edu. Level, literacy, decrease access to med. care, [place] [facility], rehab)? @ -No Was there de-escalation of care discussed even if they declined (Discuss DNR or withdrawal of care, Hospice)? DNR status @ -No What co-morbidities impacted this encounter? (DM, HTN, Smoking, COPD, CAD, Cancer, CVA, ARF, Chemo, Hep., AIDS, mental health diagnosis, sleep apnea, morbid obesity)? @ -Recurrent skin infections Was patient admitted / discharged? Hospital course, mention meds given and route, prescriptions, significant lab abnormalities, going to OR and other pertinent info. @ -27-year-old male presents to the emergency room with concerns regarding worsening rashes antibiotic treatment from primary care provider. No evidence of systemic symptoms. Currently using appropriate topical therapy for current likely etiology of rashes. No indication for diagnostic imaging or laboratory studies. Educated mother regarding etiology of rashes. Encouraged good skin care and establishing with dermatology for recurrent rashes. Advised to complete course of oral antibiotic therapy as prescribed by the patient's primary care provider. Will start on both cream and powder of nystatin for topical application. Questions and concerns answered. Return parameters to the emergency room reviewed. Will discharge home in stable condition with follow-up with patient's primary care provider with topical treatment for intertigo. Undiagnosed new problem with uncertain prognosis? @ -No Drug Therapy requiring intensive monitoring for toxicity (Heparin, Nitro, Insulin, Cardizem)? @ -No Were any procedures done? @ -No Diagnosis/symptom? @ -Intertrigo Acute, or Chronic, or Acute on Chronic? @ -Acute on chronic Uncomplicated (without systemic symptoms) or Complicated (systemic symptoms)? @ -Uncomplicated Side effects of treatment? @ -No Exacerbation, Progression, or Severe Exacerbation? @ -No Poses a threat to life or bodily function? How? (Chest pain, [place], [place], pneumonia, PE, COPD, DKA, ARF, appy, cholecystitis, CVA, Diverticulitis, Homicidal, Suicidal, threat to staff... and all critical care pts) @ -No. Case discussed with Dr. Quintanilla. Disposition Clinical Impression: Intertrigo Disposition: HOME SELF-CARE Condition: Stable Instructions (If sedation given, give patient instructions): Skin Yeast Infection (ED) Additional Instructions: Please complete course of Augmentin already prescribed by her primary care provider. Please apply nystatin cream and powder topically to rash areas. Keep skin folds clean and dry. Please follow-up with your primary care provider. Encourage establishing with dermatology for further evaluation and treatment for chronic recurrent rashes. Please return to the Emergency Department if symptoms worsen or any other concerns. Prescriptions: Nystatin 100,000Unit/gm Cream [Mycostatin Cream] 1 applic TOPICAL TID #120 gm Nystatin 100,000 Unit/gm Powd [Mycostatin Powder] 1 applic TOPICAL TID #120 gm Is patient prescribed a controlled substance at d/c from ED?: No Referrals: Manfred Barraza MD [Primary Care Provider] - 1-2 days Ximena Bush MD [STAFF PHYSICIAN] - 1-2 days Time of Disposition: 20:34
== END 2022-10-20 20:59 | disposition home or self-care (01) ==
LOC: EC 18:29
DX: L30.4 Erythema intertrigo (principal); Z91.040 Latex allergy status; Z87.440 Personal history of urinary (tract) infections
CPT/HCPCS: 99283

== ENCOUNTER 2023-04-26 14:49 | Inpatient (IN) | payer MEDICARE, OTHER ==
[2023-04-26] MEDS ORDERED: VANCOMYCIN IV PER PHARMACY 1 EACH MISC MISCELLANE PRN (15:15)
[2023-04-26] MEDS ORDERED: VANCOMYCIN 2,000 MG in SODIUM CHLORIDE 0.9% 500 ML 500 ML IVPB STA (15:28)
--- NOTE | 2023-04-26 15:47 | ED ---
General Adult HPI - General Chief complaint: Skin/Abscess/Foreign Body Stated complaint: + for MRSA-sent by PCP Time Seen by Provider: 04/26/23 14:57 Source: patient, RN notes reviewed Mode of arrival: wheelchair Limitations: physical limitation - History of Present Illness Initial comments: 27-year-old male presents emergency Department with chief complaint of MRSA infection. Patient has wounds and bilateral popliteal fossas. He also has this in his left antecubital space. His mother admits to occasional drainage from these areas which is clear to yellow in color. His mother states that this was cultured his primary care physician's office on Thursday and they received a call to come to the emergency department today as it was positive for MRSA deceptive only to vancomycin and gentamicin. Denies fever, chills, nausea, vomiting. - Related Data Home Medications Medication Instructions Recorded Confirmed Oxybutynin Chloride [Ditropan XL] 15 mg PO DAILY 06/22/14 04/26/23 Losartan [Cozaar] 25 mg PO DAILY 03/17/18 04/26/23 Fluconazole 200 mg PO DAILY 04/26/23 04/26/23 Ketoconazole 2% Shampoo [Nizoral] 1 applic TOPICAL DAILY PRN 04/26/23 04/26/23 Nystatin 100,000 Unit/gm Powd 1 applic TOPICAL BID PRN 04/26/23 04/26/23 [Mycostatin Powder] Allergies Allergy/AdvReac Type Severity Reaction Status Date / Time Latex, Natural Rubber Allergy Rash/Hives Verified 04/26/23 18:48 nitrofurantoin Allergy Rash/Hives Verified 04/26/23 18:48 macrocrystalline [From Macrodantin] Review of Systems ROS Statement: Those systems with pertinent positive or pertinent negative responses have been documented in the HPI. ROS Other: All systems not noted in ROS Statement are negative. Past Medical History Past Medical History: Neurologic Disorder, Seizure Disorder, Sleep Apnea/CPAP/BIPAP Additional Past Medical History / Comment(s): spina bifida, mentally impaired, mom straight caths pt, past hx renal failure, hx of UTI's w/sepsis in Aug & sep 2013, no cpap, questionable seizure disorder- nothing has showed up on eegs. History of Any Multi-Drug Resistant Organisms: MRSA Date of last positivie culture/infection: 2022 MDRO Source:: behind his knees. 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 right uretral reimplantation, cervical fusion, cystoscopy with double- J stent left [id number]. open removal of kidney stones 2017, tubes in ears. Past Anesthesia/Blood Transfusion Reactions: No Reported Reaction Past Psychological History: No Psychological Hx Reported Smoking Status: Never smoker Past Alcohol Use History: None Reported Past Drug Use History: None Reported - Past Family History Brother(s) Family Medical History: Seizure Disorder Father Family Medical History: Myocardial Infarction ([place]) Additional Family Medical History / Comment(s): Father of heart attack in 2015 General Exam Limitations: physical limitation General appearance: alert, in no apparent distress Head exam: Present: atraumatic, normocephalic, normal inspection Eye exam: Present: normal appearance ENT exam: Present: normal exam, mucous membranes moist Neck exam: Present: normal inspection. Absent: tenderness, meningismus, lymphadenopathy Respiratory exam: Present: normal lung sounds bilaterally. Absent: respiratory distress, wheezes, rales, rhonchi, stridor Cardiovascular Exam: Present: regular rate, normal rhythm, normal heart sounds. Absent: systolic murmur, diastolic murmur, rubs, gallop, clicks Extremities exam: Present: other (limitations due to cerebral palsy) Back exam: Present: normal inspection Neurological exam: Present: alert Psychiatric exam: Present: normal affect, normal mood Skin exam: Present: warm, dry, other (erythematous thickened skin in popliteal fossas, small open area with clear-yellow discharge) Course Vital Signs 04/26/23 04/26/23 04/26/23 14:52 18:30 20:27 Temperature 98.4 F 98.0 F Pulse Rate 84 87 98 Respiratory 18 20 18 Rate Blood Pressure 96/74 110/58 126/91 O2 Sat by Pulse 99 97 99 Oximetry Medical Decision Making - Medical Decision Making Was pt. sent in by a medical professional or institution (, PA, MEDICAL ART THERAPIST, urgent care, hospital, or jail...) When possible be specific @ -Patient's primary care provider Virgie Santiago [facility] sent patient in for inpatient admission with PICC line placement for antibiotics MRSA Did you speak to anyone other than the patient for history (EMS, parent, family, police, friend...)? What history was obtained from this source @ -No Did you review nursing and triage notes (agree or disagree)? Why? @ -I reviewed and agree with nursing and triage notes Were old charts reviewed (outside hosp., previous admission, EMS record, old EKG, old radiological studies, urgent care reports/EKG's, jail records)? Report findings @ -No old charts were reviewed Differential Diagnosis (chest pain, altered mental status, abdominal pain women, abdominal pain men, vaginal bleeding, weakness, fever, dyspnea, syncope, headache, dizziness, GI bleed, back pain, seizure, CVA, palpatations, mental health, musculoskeletal)? @ -not applicable EKG interpreted by me (3pts min.). @ -None X-rays interpreted by me (1pt min.). @ -None done CT interpreted by me (1pt min.). @ -None done U/S interpreted by me (1pt. min.). @ -None done What testing was considered but not performed or refused? (CT, X-rays, U/S, labs)? Why? @ -None What meds were considered but not given or refused? Why? @ -None Did you discuss the management of the patient with other professionals (professionals i.e. , PA, MEDICAL ART THERAPIST, lab, RT, psych nurse, social worker masters, special tax auditor, teacher, employee service officer, manager of case)? Give summary @ -Management discussed with Dr. Baig with [facility] who is accepting of the admission infectious disease consult Was smoking cessation discussed for >3mins.? @ -No Was critical care preformed (if so, how long)? @ -No Were there social determinants of health that impacted care today? How? (Home lessness, low income, unemployed, alcoholism, drug addiction, transportation, low edu. Level, literacy, decrease access to med. care, snf, rehab)? @ -No Was there de-escalation of care discussed even if they declined (Discuss DNR or withdrawal of care, Hospice)? DNR status @ -No What co-morbidities impacted this encounter? (DM, HTN, Smoking, COPD, CAD, Cancer, CVA, ARF, Chemo, Hep., AIDS, mental health diagnosis, sleep apnea, morbid obesity)? @ -None Was patient admitted / discharged? Hospital course, mention meds given and route, prescriptions, significant lab abnormalities, going to OR and other pertinent info. @ -Admitted. Patient presented to emergency department for to that had a positive MRSA culture at his primary care provider. His family was called today and told that the patient had a positive MRSA culture and he should come into the emergency department for PICC line placement and vancomycin or gentamicin as the C&S only reported sensitivity to these medications. Patient is not having any fever, chills, nausea, vomiting. He reports minimal drainage from the wounds. Patient was started on vancomycin. Lab work was obtained which showed normal WBC count CMP shows sodium 137, potassium 4.2, creatinine 1.13, lactic acid 1.2, CRP 2.5. Patient will be admitted for these wounds and infectious disease will be consulted. Patient was accepted by Dr. Baig. Patient stable at time of admission. Case discussed with my attending, Dr. Stovall Undiagnosed new problem with uncertain prognosis? @ -No Drug Therapy requiring intensive monitoring for toxicity (Heparin, Nitro, Insulin, Cardizem)? @ -No Were any procedures done? @ -No Diagnosis/symptom? @ -MRSA positive wound culture Acute, or Chronic, or Acute on Chronic? @ -acute Uncomplicated (without systemic symptoms) or Complicated (systemic symptoms)? @ -uncomplicated Side effects of treatment? @ -No Exacerbation, Progression, or Severe Exacerbation? @ -No Poses a threat to life or bodily function? How? (Chest pain, [place], [place], pneumonia, PE, COPD, DKA, ARF, appy, cholecystitis, CVA, Diverticulitis, Homicidal, Suicidal, threat to staff... and all critical care pts) @ -No - Lab Data Result diagrams: 04/26/23 15:40 04/26/23 15:40 Disposition Clinical Impression: MRSA (methicillin resistant staph aureus) culture positive Disposition: ADMITTED IP TO THIS HOSP Condition: Stable Is patient prescribed a controlled substance at d/c from ED?: No
[2023-04-26 16:13] LABS: Basophils % (A) 1 %; Eosinophils # (A) 0.3 k/uL (0-0.7); Eosinophils % (A) 5 %; HGB 15.6 gm/dL (13.0-17.5); Lymphocytes # (A) 1.5 k/uL (1.0-4.8); Lymphocytes % (A) 24 %; MCHC 34.6 g/dL (31.0-37.0); MCV 89.7 fL (80.0-100.0); Mean Platelet Volume 7.9; Monocytes # (A) 0.3 k/uL (0-1.0); Monocytes % (A) 5 %; Neutrophils # (A) 4.2 k/uL (1.3-7.7); Neutrophils % (A) 65 %; Platelet Count 200 k/uL (150-450); RBC 5.02 m/uL (4.30-5.90); RDW 13.4 % (11.5-15.5); WBC 6.4 k/uL (3.8-10.6)
[2023-04-26 16:24] LABS: ALT 38 U/L (4-49); African American GFR (CKD) >90 (>60 ml/min/1.73 sqM); Albumin 4.3 g/dL (3.5-5.0); Anion Gap 11 mmol/L; Blood Urea Nitrogen 24 mg/dL (9-20); Calcium 9.1 mg/dL (8.4-10.2); Carbon Dioxide 20 mmol/L (22-30); Chloride 106 mmol/L (98-107); Glucose 104 mg/dL (74-99); Non-African American GFR(CKD) 88 (>60 ml/min/1.73 sqM); Sodium 137 mmol/L (137-145); Total Bilirubin 0.6 mg/dL (0.2-1.3); Total Protein 8.1 g/dL (6.3-8.2)
[2023-04-26 16:32] LABS: AST 30 U/L (17-59); Alkaline Phosphatase 70 U/L (38-126); Potassium 4.2 mmol/L (3.5-5.1)
[2023-04-26] MEDS ORDERED: ACETAMINOPHEN TAB 325 MG TAB PO PRN (18:07)
[2023-04-26] MEDS ORDERED: NALOXONE 0.4 MG/ML 1 ML VIAL IV PRN (18:07)
[2023-04-26] MEDS ORDERED: KETOROLAC 15 MG/ML 1 ML VIAL IVP PRN (18:27)
[2023-04-26] MEDS ORDERED: MELATONIN 3 MG TABLET PO PRN (18:27)
[2023-04-26] MEDS ORDERED: bisacodyL 5 MG TABLET.DR PO PRN (18:27)
[2023-04-26] MEDS ORDERED: ONDANSETRON 4 MG/2 ML VIAL IVP PRN (18:27)
--- NOTE | 2023-04-26 18:44 | P.HPIM ---
History of Present Illness H&P Date: 04/26/23 Patient is a 27-year-old male with spinal this at a complicated by neurogenic bladder requiring straight cath, possible seizure disorder, intellectual disability, and multiple other comorbid conditions who presented to the ER at the direction of his primary care practitioner due to concern of MRSA infection. Apparently patient had outpatient cultures performed which showed MRSA only sensitive to IV antibiotics. In the ER he underwent an extensive evaluation. On arrival vital signs were within normal limits. Laboratory analysis showed BUN of 24. He was given a dose of vancomycin. Arrangements were made for admission. Patient seen and examined at bedside in the ermegency department with mother, aunt, and uncle present. Since the winter he has developed chornic wounds of his popliteal area due to contrature and moisture. He also has ne at the left elbow. They have been treating them through elminating mositure, antifungals, and antibiotics. He was seen at his PCP in [facility] and the right one was cultured with results of MRSA sensitive to vanc and gent only and pseudomonas. They were insturcted to come to the emergancy department for possible PICC and IV ABX. He has seen wound care in the past, but no for these wounds. He has a hx of multiple bouts of bacteremia. Mother reports that he has otherwise been in his typical state of health, no unusual symptoms or behaviors. He even went to [facility] last night. Vital signs reviewed General: nontoxic, no distress, appears at stated age Derm: warm, dry, bilateral popliteal areas with skin breakdown, pink what appears to be the fpormation of chronic scaring, small liner area at the skin fold with small amount of break down with serosanganous drainage. Left elbow wtih area with raised leading edge and moist appearance. Eyes: EOMI, no lid lag, anicteric sclera ENT: Nose and ears atraumatic, Cardiovascular: S1S2 reg, no murmur, non pitting edema Lungs: Decreased bs bilateral, no rhonchi, no rales, no wheeze, no accessory muscle use Abdominal: soft, nontender to palpation, no guarding, no appreciable organomegaly, normal bowel sounds Ext: + felsxion contracture b/l LE, + hip flexor atrophy Neuro: CN II-XII grossly intact, decreased movement of bilateral lower extremities Psych: Alert, oriented, Jovial affect Assessment/Plan: Chornic non- healing wounds b/l popliteal area, wound left anticubital fossa - possible infection vs colonization - Consult ID, received 1 dose of vano in the ED, will awiat ID recs before continuing this dose. - Tansfer to bed once patient has a room for closer evaluation in the AM. Spinibifida with neurogenic bladder Cognitive impairiment Contracture of b/l LE - conitnue with [facility], mother will stay at bedside and preform - Oxybutnin Mother is usnsure if on losartan for HTN or kidney issuse but has been on this medication for years - resume losartan 25 mg PO daily Obesity with BMI 47.6 Imaging: As per HPI Data Review: As per HPI The patient is [admitted] with an anticipated [greater] than 2 midnight stay for evaluation of [failed outpatient treatment of LE wounds complicated by fungal, MRSA, and pseudomonas component]. Surrogate decision-maker: Mother DVT prophylaxis: No change in abulatory status and no sepsis, so none indicated at this time Discussed with: ED provider, family Anticipated discharge date: pending clinical course Anticipated discharge place: pending clinical course This dictation was prepared using [employer] voice recognition software. Though every attempt is made to correct errors during dictation some may still exist. Past Medical History Past Medical History: Neurologic Disorder, Seizure Disorder, Sleep Apnea/CPAP/BIPAP Additional Past Medical History / Comment(s): spina bifid wheel chair bound, cognitive impairment, neurogenic bladder, past hx renal failure, hx of UTI's w/sepsis in Aug & sep 2013, no cpap History of Any Multi-Drug Resistant Organisms: MRSA Date of last positivie culture/infection: 2022 MDRO Source:: behind his knees. 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 right uretral reimplantation, cervical fusion, cystoscopy with double- J stent left /2017. open removal of kidney stones 2016, tubes in ears. Past Anesthesia/Blood Transfusion Reactions: No Reported Reaction Past Psychological History: No Psychological Hx Reported Smoking Status: Never smoker Past Alcohol Use History: None Reported Past Drug Use History: None Reported - Past Family History Brother(s) Family Medical History: Seizure Disorder Father Family Medical History: Myocardial Infarction ([place]) Additional Family Medical History / Comment(s): Father of heart attack in 2016 Medications and Allergies Home Medications Medication Instructions Recorded Confirmed Type Oxybutynin Chloride [Ditropan XL] 15 mg PO DAILY 06/22/14 02/25/22 History Losartan [Cozaar] 25 mg PO DAILY 03/17/18 02/25/22 History Acetaminophen Tab [Tylenol] 650 mg PO Q6H PRN 02/25/22 02/25/22 History Cephalexin [Keflex] 500 mg PO Q6HR 5 Days #20 cap 09/21/22 Rx Nystatin 100,000Unit/gm Cream 1 applic TOPICAL BID #15 gram 09/21/22 Rx [Mycostatin Cream] Nystatin 100,000 Unit/gm Powd 1 applic TOPICAL TID #120 gm 10/20/22 Rx [Mycostatin Powder] Nystatin 100,000Unit/gm Cream 1 applic TOPICAL TID #120 gm 10/20/22 Rx [Mycostatin Cream] Allergies Allergy/AdvReac Type Severity Reaction Status Date / Time Latex, Natural Rubber Allergy Rash/Hives Verified 04/26/23 14:52 nitrofurantoin Allergy Rash/Hives Verified 04/26/23 14:52 macrocrystalline [From Macrodantin] Physical Exam Osteopathic Statement: *. No significant issues noted on an osteopathic structural exam other than those noted in the History and Physical/Consult. Vitals: Vital Signs Temp Pulse Resp BP Pulse Ox 04/26/23 14:52 98.4 F 84 18 96/74 99 Intake and Output 04/26/23 04/26/23 04/26/23 06:59 14:59 22:59 Other: Weight 117.934 kg Results CBC & Chem 7: 04/26/23 15:40 04/26/23 15:40 Labs: Abnormal Lab Results - Last 24 Hours (Table) 04/26/23 Range/Units 15:40 Carbon Dioxide 20 L (22-30) mmol/L BUN 24 H (9-20) mg/dL Glucose 104 H (74-99) mg/dL
[2023-04-26] MEDS: NYSTATIN 100,000 UNIT/GM POWD 15 GM TOPICAL SCH (22:36)
[2023-04-27 06:26] LABS: HCT 46.6 % (39.0-53.0); MCH 30.5 pg (25.0-35.0); MCHC 34.3 g/dL (31.0-37.0); MCV 88.8 fL (80.0-100.0); Mean Platelet Volume 9.2; Platelet Count 167 k/uL (150-450); RBC 5.25 m/uL (4.30-5.90); RDW 13.7 % (11.5-15.5); WBC 7.5 k/uL (3.8-10.6)
[2023-04-27 06:43] LABS: African American GFR (CKD) >90 (>60 ml/min/1.73 sqM); Anion Gap 8 mmol/L; Blood Urea Nitrogen 25 mg/dL (9-20); C Reactive Protein 2.6 mg/dL (<1.0); Calcium 9.1 mg/dL (8.4-10.2); Carbon Dioxide 17 mmol/L (22-30); Chloride 112 mmol/L (98-107); Glucose 93 mg/dL (74-99); Non-African American GFR(CKD) >90 (>60 ml/min/1.73 sqM); Sodium 137 mmol/L (137-145)
[2023-04-27 06:49] LABS: Potassium 5.6 mmol/L (3.5-5.1)
[2023-04-27] MEDS ORDERED: SODIUM CHLORIDE 0.45% 1,000 ML IV SCH (07:45)
[2023-04-27] MEDS ORDERED: VANCOMYCIN 1,750 MG in SODIUM CHLORIDE 0.9% 500 ML 500 ML IVPB SCH (08:00)
[2023-04-27] MEDS: NYSTATIN 100,000 UNIT/GM POWD 15 GM TOPICAL SCH ×2 (08:54→16:32)
[2023-04-27] MEDS ORDERED: OXYBUTYNIN 15 MG TAB.ER.24 PO SCH (09:00)
[2023-04-27] MEDS ORDERED: LOSARTAN 25 MG TAB PO SCH (09:00)
[2023-04-27 09:30] VITALS: RESP 20
[2023-04-27 12:43] LABS: African American GFR (CKD) >90 (>60 ml/min/1.73 sqM); Anion Gap 9 mmol/L; Blood Urea Nitrogen 23 mg/dL (9-20); Calcium 8.7 mg/dL (8.4-10.2); Carbon Dioxide 22 mmol/L (22-30); Chloride 108 mmol/L (98-107); Glucose 89 mg/dL (74-99); Non-African American GFR(CKD) 84 (>60 ml/min/1.73 sqM); Potassium 4.1 mmol/L (3.5-5.1); Sodium 139 mmol/L (137-145)
[2023-04-27 13:58] VITALS: BMI 47.5
[2023-04-27 15:52] VITALS: BP 116/81; PULSE 69; TEMP 97.7
--- NOTE | 2023-04-27 16:19 | P.DS ---
Providers Date of admission: 04/26/23 15:12 Expected date of discharge: 04/27/23 Attending physician: Karen Baig DO Consults: 04/26/23 18:07 Consult Physician Routine Consulting Provider: Kadie Turcios Consult Reason/Comments: MRSA+ culture Do you want consulting provider notified?: Yes, Notify in am Primary care physician: Manfred Barraza Hospital Course: Discharge Diagnosis: Choric non- healing wounds b/l popliteal area, wound left anticubital fossa with fungal component - superficial fungal infection, no signs of extension below the epidermis Spinibifida with neurogenic bladder Cognitive impairment Contracture of b/l LE Hypokalemia, laboratory error -Was repeated and was 4.1 Obesity with BMI 47.6 Hospital Course: Patient is a 27-year-old male with spinal this at a complicated by neurogenic bladder requiring straight cath, possible seizure disorder, intellectual disability, and multiple other comorbid conditions who presented to the ER at the direction of his primary care practitioner due to concern of MRSA infection. Apparently patient had outpatient cultures performed which showed MRSA only sensitive to IV antibiotics. In the ER he underwent an extensive evaluation. On arrival vital signs were within normal limits. Laboratory analysis showed BUN of 24. He was given a dose of vancomycin. Arrangements were made for admission. He was given 1 dose of vancomycin in the ER. Subsequent doses were held while awaiting infectious disease consult. Case was discussed extensively with Dr. Turcios no significant bacterial cellulitis changes noted, no deep wounds noted, appear to be a fungal infection contained with in the dermis and chronic changes from contracture and constant moisture. Currently no indication for treatment with IV antibiotics. Patient determined stable for discharge. Follow-up: [facility], Increase nystatin powder to TID, keep wounds as dry as possible, consider PT/OT for ROM and ortho consult to see if contractors can be lessened. Blood cultures obtained, no growth to date on discharge. Data Review: Afebrile, blood pressure is within normal limits, heart rate ranging 57 and 98 Labs reviewed white blood cells remained normal at 7.5, initial and potassium was elevated at 5.6 with some hemolysis, this was repeated and was down to 4.1, BUN mildly elevated at 25, CRP mildly elevated at 2.6 Patient seen and examined at bedside with mother present. He has no complaints today. Continues to feel well. Vital signs reviewed and stable. General: nontoxic, no distress, appears at stated age Derm: warm, dry, bilateral popliteal areas with skin breakdown, pink what appears to be the formation of chronic scaring, small liner area at the skin fold with small amount of break down Left elbow with area with raised leading edge and moist appearance. Cardiovascular: S1S2 reg, no murmur, non pitting edema Lungs: Decreased bs bilateral, no rhonchi, no rales, no wheeze, no accessory muscle use Psych: Alert, oriented, Jovial affect A total of 25 minutes of time were spent preparing this complex discharge summary. Patient was discharged on 04/27/23. This dictation was prepared using [employer] voice recognition software. Though every attempt is made to correct errors during dictation some may still exist. Patient Condition at Discharge: Stable Plan - Discharge Summary Discharge Rx Participant: No New Discharge Prescriptions: Continue Oxybutynin Chloride [Ditropan XL] 15 mg PO DAILY Losartan [Cozaar] 25 mg PO DAILY Ketoconazole 2% Shampoo [Nizoral] 1 applic TOPICAL DAILY PRN PRN Reason: SKIN ISSUES Fluconazole 200 mg PO DAILY Changed Nystatin 100,000 Unit/gm Powd [Mycostatin Powder] 1 applic TOPICAL TID #0 Discharge Medication List Oxybutynin Chloride [Ditropan XL] 15 mg PO DAILY 06/22/14 [History] Losartan [Cozaar] 25 mg PO DAILY 03/17/18 [History] Fluconazole 200 mg PO DAILY 04/26/23 [History] Ketoconazole 2% Shampoo [Nizoral] 1 applic TOPICAL DAILY PRN 04/26/23 [History] Nystatin 100,000 Unit/gm Powd [Mycostatin Powder] 1 applic TOPICAL TID #0 04/27/23 [Rx] Follow up Appointment(s)/Referral(s): Manfred Barraza MD [Primary Care Provider] - 1-2 days [facility] [NON-STAFF] - 1 Week Activity/Diet/Wound Care/Special Instructions: Special Instructions: Infectious disease has reviewed culture, no need for IV antibiotics at this time given no significant penetrating wound. Continue your meticulous wound care. Please try to keep affected areas as dry as possible. Increase nystatin powder from twice to three times daily. Your Blood culture have no growth to date. They will be grown for 5 days in total. If they become positive we will contact you at [phone] Thank you for trusting us with your care. We wish you well on your journey to better health. Discharge Disposition: HOME SELF-CARE
[2023-04-28] MEDS ORDERED: VANCOMYCIN TROUGH DUE 1 EACH MISC MISCELLANE ONE (15:00)
== END 2023-04-27 17:48 | disposition home or self-care (01) | DRG 593 ==
LOC: EC 14:49 → 4SSUR 15:12
PROVIDERS: ADMIT Internal Medicine; ATTEND Internal Medicine
DX: L97.828 Non-pressure chronic ulcer of other part of left lower leg with other specified severity (principal); B48.8 Other specified mycoses; Z68.42 Body mass index [BMI] 45.0-49.9, adult; B95.62 Methicillin resistant Staphylococcus aureus infection as the cause of diseases classified elsewhere; L97.818 Non-pressure chronic ulcer of other part of right lower leg with other specified severity; F79 Unspecified intellectual disabilities; E66.9 Obesity, unspecified; Q05.5 Cervical spina bifida without hydrocephalus; E87.6 Hypokalemia; N31.9 Neuromuscular dysfunction of bladder, unspecified; G31.84 Mild cognitive impairment of uncertain or unknown etiology; M62.462 Contracture of muscle, left lower leg; M62.461 Contracture of muscle, right lower leg; G40.909 Epilepsy, unspecified, not intractable, without status epilepticus; Z87.440 Personal history of urinary (tract) infections; Z87.442 Personal history of urinary calculi; Z98.1 Arthrodesis status; Z91.040 Latex allergy status; Z91.048 Other nonmedicinal substance allergy status
CPT/HCPCS: 36415; 80048; 80053; 83605; 85025; 85027; 86140; 87040; 96365; 96366; 99284

== ENCOUNTER 2023-07-12 17:37 | Emergency (ER) | payer MEDICARE, OTHER ==
[2023-07-12] MEDS ORDERED: CLINDAMYCIN 150 MG CAP PO STA (18:11)
[2023-07-12 18:19] VITALS: TEMP 98
--- NOTE | 2023-07-12 18:21 | ED ---
General Adult HPI - General Chief complaint: Dental/Oral Stated complaint: abscess on face Time Seen by Provider: 07/12/23 17:55 Source: patient, family, RN notes reviewed, old records reviewed Mode of arrival: wheelchair Limitations: no limitations - History of Present Illness Initial comments: 19-year-old male presents with left-sided facial swelling. Mother noticed swelling today. No pain complaints. No fever at home. Swelling is localized to the left cheek. Patient denies any dental pain. No facial trauma. - Related Data Home Medications Medication Instructions Recorded Confirmed Oxybutynin Chloride [Ditropan XL] 15 mg PO DAILY 06/22/14 04/26/23 Losartan [Cozaar] 25 mg PO DAILY 03/17/18 04/26/23 Fluconazole 200 mg PO DAILY 04/26/23 04/26/23 Ketoconazole 2% Shampoo [Nizoral] 1 applic TOPICAL DAILY PRN 04/26/23 04/26/23 Previous Rx's Medication Instructions Recorded Nystatin 100,000 Unit/gm Powd 1 applic TOPICAL TID #0 04/27/23 [Mycostatin Powder] Clindamycin [Cleocin] 300 mg PO Q6H 10 Days #80 cap 07/12/23 Allergies Allergy/AdvReac Type Severity Reaction Status Date / Time Latex, Natural Rubber Allergy Rash/Hives Verified 07/12/23 17:54 nitrofurantoin Allergy Rash/Hives Verified 07/12/23 17:54 macrocrystalline [From Macrodantin] Review of Systems ROS Statement: Those systems with pertinent positive or pertinent negative responses have been documented in the HPI. ROS Other: All systems not noted in ROS Statement are negative. Past Medical History Past Medical History: Neurologic Disorder, Seizure Disorder, Sleep Apnea/CPAP/BIPAP Additional Past Medical History / Comment(s): spina bifida, mentally impaired, mom straight caths pt, past hx renal failure, hx of UTI's w/sepsis in Aug & sep 2013, no cpap, questionable seizure disorder- nothing has showed up on eegs. 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 right uretral reimplantation, cervical fusion, cystoscopy with double- J stent left [id number]. open removal of kidney stones 2016, tubes in ears. Past Anesthesia/Blood Transfusion Reactions: No Reported Reaction Past Psychological History: No Psychological Hx Reported Smoking Status: Never smoker Past Alcohol Use History: None Reported Past Drug Use History: None Reported - Past Family History Brother(s) Family Medical History: Seizure Disorder Father Family Medical History: Myocardial Infarction ([place]) Additional Family Medical History / Comment(s): Father of heart attack in 2015 General Exam Limitations: no limitations General appearance: alert, in no apparent distress Head exam: Present: atraumatic, normocephalic Eye exam: Present: normal appearance ENT exam: Present: other (No drainable dental abscess, soft tissue swelling of the left cheek with induration, no erythema, no cellulitis) Respiratory exam: Absent: respiratory distress Cardiovascular Exam: Present: regular rate, normal rhythm GI/Abdominal exam: Absent: distended Neurological exam: Present: alert Psychiatric exam: Present: normal affect, normal mood Skin exam: Present: warm, dry, intact Course Vital Signs 07/12/23 17:52 Temperature 98.0 F Pulse Rate 101 H Respiratory 20 Rate Blood Pressure 138/87 O2 Sat by Pulse 97 Oximetry Medical Decision Making - Medical Decision Making Was pt. sent in by a medical professional or institution ([facility], MOSAICIST, urgent care, hospital, or residential...) When possible be specific @ -No Did you speak to anyone other than the patient for history (EMS, parent, family, police, friend...)? What history was obtained from this source @ -[History is obtained from the patient's mother and the patient Did you review nursing and triage notes (agree or disagree)? Why? @ -I reviewed and agree with nursing and triage notes Were old charts reviewed (outside hosp., previous admission, EMS record, old EKG, old radiological studies, urgent care reports/EKG's, residential records)? Report findings @ Dental abscess, facial cellulitis, sialoadenitis Differential Diagnosis (chest pain, altered mental status, abdominal pain women, abdominal pain men, vaginal bleeding, weakness, fever, dyspnea, syncope, headache, dizziness, GI bleed, back pain, seizure, CVA, palpatations, mental health, musculoskeletal)? @ -not applicable EKG interpreted by me (3pts min.). @ -As above X-rays interpreted by me (1pt min.). @ -None done CT interpreted by me (1pt min.). @ -None done U/S interpreted by me (1pt. min.). @ -None done What testing was considered but not performed or refused? (CT, X-rays, U/S, labs)? Why? @ -None What meds were considered but not given or refused? Why? @ -None Did you discuss the management of the patient with other professionals (professionals i.e. , PA, MOSAICIST, lab, RT, psych nurse, nephrology social worker, disk sharpener, teacher, corporate compliance officer, piano case maker)? Give summary @ -No Was smoking cessation discussed for >3mins.? @ -No Was critical care preformed (if so, how long)? @ -No Were there social determinants of health that impacted care today? How? (Homelessness, low income, unemployed, alcoholism, drug addiction, transportation, low edu. Level, literacy, decrease access to med. care, alf, rehab)? @ -No Was there de-escalation of care discussed even if they declined (Discuss DNR or withdrawal of care, Hospice)? DNR status @ -No What co-morbidities impacted this encounter? (DM, HTN, Smoking, COPD, CAD, Cancer, CVA, ARF, Chemo, Hep., AIDS, mental health diagnosis, sleep apnea, morbid obesity)? @ -None Was patient admitted / discharged? Hospital course, mention meds given and route, prescriptions, significant lab abnormalities, going to OR and other pertinent info. @ -27-year-old male with left-sided facial swelling. There is some induration without significant tenderness, no erythema. There is not a visible drainable dental abscess on exam. Patient will require evaluation by his dentist. There is no drainable facial abscess. No fever. Patient is nontoxic appearing. Will start clindamycin. Mother is given strict return parameters. Undiagnosed new problem with uncertain prognosis? @ -No Drug Therapy requiring intensive monitoring for toxicity (Heparin, Nitro, Insulin, Cardizem)? @ -No Were any procedures done? @ -No Diagnosis/symptom? @ Facial swelling, likely dental infection Acute, or Chronic, or Acute on Chronic? @ -[Acute Uncomplicated (without systemic symptoms) or Complicated (systemic symptoms)? @ -default Side effects of treatment? @ -No Exacerbation, Progression, or Severe Exacerbation? @ -No Poses a threat to life or bodily function? How? (Chest pain, [place], [place], pneumonia, PE, COPD, DKA, ARF, appy, cholecystitis, CVA, Diverticulitis, Homicidal, Suicidal, threat to staff... and all critical care pts) @ -[Low risk at this time Disposition Clinical Impression: Left facial swelling Disposition: HOME SELF-CARE Condition: Fair Instructions (If sedation given, give patient instructions): Dental Abscess (ED) Additional Instructions: Please follow up with your primary care provider and your dentist. Please return with fever, worsening symptoms. Prescriptions: Clindamycin [Cleocin] 300 mg PO Q6H 10 Days #80 cap Is patient prescribed a controlled substance at d/c from ED?: No Referrals: Manfred Barraza MD [Primary Care Provider] - 1-2 days Time of Disposition: 18:20
[2023-07-12 19:14] VITALS: BP 128/74; PULSE 78; RESP 18
== END 2023-07-12 19:12 | disposition home or self-care (01) ==
LOC: EC 17:37
DX: R22.9 Localized swelling, mass and lump, unspecified (principal); G47.30 Sleep apnea, unspecified; Z91.040 Latex allergy status; Z88.1 Allergy status to other antibiotic agents
CPT/HCPCS: 99282

== ENCOUNTER 2023-11-29 03:40 | Emergency (ER) | payer MEDICARE, OTHER ==
[2023-11-29 04:01] VITALS: RESP 18; TEMP 96.8
--- NOTE | 2023-11-29 04:19 | ED ---
General Adult HPI - General Chief complaint: Back Pain/Injury Stated complaint: Right flank pain Time Seen by Provider: 11/29/23 03:44 Source: patient, family, EMS, RN notes reviewed, old records reviewed Mode of arrival: EMS Limitations: no limitations - History of Present Illness Initial comments: 28-year-old male with acute onset right-sided flank pain. This was reported as severe. The patient does have prior history of stones requiring intervention. No fever. No vomiting. No preceding symptoms. This occurred after catheterization, patient requires straight cath. History is obtainable from the patient and from his mother. - Related Data Home Medications Medication Instructions Recorded Confirmed Oxybutynin Chloride [Ditropan XL] 15 mg PO DAILY 06/22/14 04/26/23 Losartan [Cozaar] 25 mg PO DAILY 03/17/18 04/26/23 Fluconazole 200 mg PO DAILY 04/26/23 04/26/23 Ketoconazole 2% Shampoo [Nizoral] 1 applic TOPICAL DAILY PRN 04/26/23 04/26/23 Previous Rx's Medication Instructions Recorded Nystatin 100,000 Unit/gm Powd 1 applic TOPICAL TID #0 04/27/23 [Mycostatin Powder] Clindamycin [Cleocin] 300 mg PO Q6H 10 Days #80 cap 07/12/23 Cephalexin [Keflex] 500 mg PO Q12HR #20 cap 11/29/23 Allergies Allergy/AdvReac Type Severity Reaction Status Date / Time Latex, Natural Rubber Allergy Rash/Hives Verified 11/29/23 03:50 nitrofurantoin Allergy Rash/Hives Verified 11/29/23 03:50 macrocrystalline [From Macrodantin] Review of Systems ROS Statement: Those systems with pertinent positive or pertinent negative responses have been documented in the HPI. ROS Other: All systems not noted in ROS Statement are negative. Past Medical History Past Medical History: Neurologic Disorder, Seizure Disorder, Sleep Apnea/CPAP/BIPAP Additional Past Medical History / Comment(s): spina bifida, mentally impaired, mom straight caths pt, past hx renal failure, hx of UTI's w/sepsis in Aug & sep 2013, no cpap, questionable seizure disorder- nothing has showed up on eegs. History of Any Multi-Drug Resistant Organisms: MRSA Date of last positivie culture/infection: 8/8/23 MDRO Source:: Left Antecubital, Right Knee Past Surgical History: Back Surgery, Tonsillectomy Additional Past Surgical History / Comment(s): THREAD TRIMMER shunt w/several revisions, back surg. 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 right uretral reimplantation, cervical fusion, cystoscopy with double- J stent left [id number]. open removal of kidney stones 2017, tubes in ears. Past Anesthesia/Blood Transfusion Reactions: No Reported Reaction Past Psychological History: No Psychological Hx Reported Smoking Status: Never smoker Past Alcohol Use History: None Reported Past Drug Use History: None Reported - Past Family History Brother(s) Family Medical History: Seizure Disorder Father Family Medical History: Myocardial Infarction ([place]) Additional Family Medical History / Comment(s): Father of heart attack in General Exam General appearance: alert, in no apparent distress Head exam: Present: atraumatic, normocephalic Eye exam: Present: normal appearance, PERRL ENT exam: Present: normal exam Neck exam: Present: normal inspection. Absent: tenderness, meningismus Respiratory exam: Present: normal lung sounds bilaterally. Absent: respiratory distress, wheezes Cardiovascular Exam: Present: normal rhythm, tachycardia GI/Abdominal exam: Present: soft. Absent: distended, tenderness, guarding, rebound Back exam: Absent: CVA tenderness (R) Neurological exam: Present: alert, oriented X3 Skin exam: Present: warm, dry, intact. Absent: cyanosis, diaphoretic Course Vital Signs 11/29/23 11/29/23 03:42 05:46 Temperature 96.8 F L Pulse Rate 114 H 113 H Respiratory 18 18 Rate Blood Pressure 143/74 118/83 O2 Sat by Pulse 100 100 Oximetry Medical Decision Making - Medical Decision Making Was pt. sent in by a medical professional or institution (, PA, [facility], urgent care, hospital, or detention...) When possible be specific @ -No Did you speak to anyone other than the patient for history (EMS, parent, family, police, friend...)? What history was obtained from this source @ Mother Did you review nursing and triage notes (agree or disagree)? Why? @ -I reviewed and agree with nursing and triage notes Were old charts reviewed (outside hosp., previous admission, EMS record, old EK G, old radiological studies, urgent care reports/EKG's, detention records)? Report findings @ -No old charts were reviewed Differential Diagnosis (chest pain, altered mental status, abdominal pain women, abdominal pain men, vaginal bleeding, weakness, fever, dyspnea, syncope, headache, dizziness, GI bleed, back pain, seizure, CVA, palpatations, mental health, musculoskeletal)? @Differential Abdominal Pain Men: Appendicitis, cholecystitis, diverticulosis, ischemic bowel, pancreatitis, hepat itis, UTI, gastroenteritis, AAA, incarcerated hernia, bowel obstruction, constipation, inflammatory bowel, hepatitis, peptic ulcer disease, splenic infarction, perforated viscus, testicular torsion, this is not meant to be an all-inclusive list EKG interpreted by me (3pts min.). @ -As above X-rays interpreted by me (1pt min.). @ -None done CT interpreted by me (1pt min.). @ CT ab/pelvis with out acute findings. U/S interpreted by me (1pt. min.). @ -None done What testing was considered but not performed or refused? (CT, X-rays, U/S, labs)? Why? @ -None What meds were considered but not given or refused? Why? @ -None Did you discuss the management of the patient with other professionals (professionals i.e. , PA, [facility] [employer], lab, RT, psych nurse, protective services social worker, trainman, teacher, police or patrol park officer, pillowcase cleaner)? Give summary @ -No Was smoking cessation discussed for >3mins.? @ -No Was critical care preformed (if so, how long)? @ -No Were there social determinants of health that impacted care today? How? (Homelessness, low income, unemployed, alcoholism, drug addiction, transportation, low edu. Level, literacy, decrease access to med. care, snf, rehab)? @ -No Was there de-escalation of care discussed even if they declined (Discuss DNR or withdrawal of care, Hospice)? DNR status @ -No What co-morbidities impacted this encounter? (DM, HTN, Smoking, COPD, CAD, Cancer, CVA, ARF, Chemo, Hep., AIDS, mental health diagnosis, sleep apnea, morbid obesity)? @ -None Was patient admitted / discharged? Hospital course, mention meds given and route, prescriptions, significant lab abnormalities, going to OR and other pertinent info. @ -[Patient discharged, laboratory testing reveals normal CBC, normal CMP, urinalysis suggestive of infection, patient treated for urinary tract infection. Patient and mother given strict return parameters. Undiagnosed new problem with uncertain prognosis? @ -No Drug Therapy requiring intensive monitoring for toxicity (Heparin, Nitro, Insulin, Cardizem)? @ -No Were any procedures done? @ -No Diagnosis/symptom? @ -[ab pain,, UTI Acute, or Chronic, or Acute on Chronic? @ -acute Uncomplicated (without systemic symptoms) or Complicated (systemic symptoms)? @ -Complicated Side effects of treatment? @ -[No Exacerbation, Progression, or Severe Exacerbation? @ -No Poses a threat to life or bodily function? How? (Chest pain, [place], [place], pneumonia, PE, COPD, DKA, ARF, appy, cholecystitis, CVA, Diverticulitis, Homicidal, Suicidal, threat to staff... and all critical care pts) @ -[low risk at this time - Lab Data Result diagrams: 11/29/23 04:18 11/29/23 04:18 Lab Results 11/29/23 11/29/23 11/29/23 Range/Units 04:18 04:18 04:41 WBC 10.7 H (3.8-10.6) k/uL RBC 4.92 (4.30-5.90) m/uL Hgb 15.1 (13.0-17.5) gm/dL Hct 44.3 (39.0-53.0) % MCV 90.1 (80.0-100.0) fL MCH 30.8 (25.0-35.0) pg MCHC 34.1 (31.0-37.0) g/dL RDW 14.0 (11.5-15.5) % Plt Count 183 (150-450) k/uL MPV 7.4 Neutrophils % 85 % Lymphocytes % 8 % Monocytes % 4 % Eosinophils % 2 % Basophils % 0 % Neutrophils # 9.1 H (1.3-7.7) k/uL Lymphocytes # 0.9 L (1.0-4.8) k/uL Monocytes # 0.4 (0-1.0) k/uL Eosinophils # 0.2 (0-0.7) k/uL Basophils # 0.0 (0-0.2) k/uL Sodium 139 (137-145) mmol/L Potassium 4.6 (3.5-5.1) mmol/L Chloride 107 (98-107) mmol/L Carbon Dioxide 22 (22-30) mmol/L Anion Gap 10 mmol/L BUN 33 H (9-20) mg/dL Creatinine 0.93 (0.66-1.25) mg/dL Est GFR (CKD-EPI)AfAm >90 (>60 ml/min/1.73 sqM) Est GFR (CKD-EPI)NonAf >90 (>60 ml/min/1.73 sqM) Glucose 109 H (74-99) mg/dL Calcium 9.4 (8.4-10.2) mg/dL Total Bilirubin 0.6 (0.2-1.3) mg/dL AST 20 (17-59) U/L ALT 26 (4-49) U/L Alkaline Phosphatase 103 (38-126) U/L Total Protein 7.6 (6.3-8.2) g/dL Albumin 4.3 (3.5-5.0) g/dL Urine Color Colorless Urine Appearance Cloudy (Clear) Urine pH 6.0 (5.0-8.0) Ur Specific [place] 1.014 (1.001-1.035) Urine Protein 2+ H (Negative) Urine Glucose (UA) Negative (Negative) Urine Ketones Negative (Negative) Urine Blood Small H (Negative) Urine Nitrite Positive (Negative) Urine Bilirubin Negative (Negative) Urine Urobilinogen <2.0 (<2.0) mg/dL Ur Leukocyte Esterase Large H (Negative) Urine RBC 11 H (0-5) /hpf Urine WBC >182 H (0-5) /hpf Urine Bacteria Many H (None) /hpf Disposition Clinical Impression: UTI (urinary tract infection), Right lower quadrant abdominal pain Disposition: HOME SELF-CARE Condition: Fair Instructions (If sedation given, give patient instructions): Urinary Tract Infection in Men (ED), Abdominal Pain (ED) Prescriptions: Cephalexin [Keflex] 500 mg PO Q12HR #20 cap Is patient prescribed a controlled substance at d/c from ED?: No Referrals: Manfred Barraza MD [Primary Care Provider] - 1-2 days Time of Disposition: 06:20
[2023-11-29 04:31] LABS: Basophils % (A) 0 %; Eosinophils # (A) 0.2 k/uL (0-0.7); Eosinophils % (A) 2 %; HCT 44.3 % (39.0-53.0); HGB 15.1 gm/dL (13.0-17.5); Lymphocytes # (A) 0.9 k/uL (1.0-4.8); Lymphocytes % (A) 8 %; MCH 30.8 pg (25.0-35.0); MCHC 34.1 g/dL (31.0-37.0); MCV 90.1 fL (80.0-100.0); Mean Platelet Volume 7.4; Monocytes # (A) 0.4 k/uL (0-1.0); Monocytes % (A) 4 %; Neutrophils # (A) 9.1 k/uL (1.3-7.7); Neutrophils % (A) 85 %; Platelet Count 183 k/uL (150-450); RBC 4.92 m/uL (4.30-5.90); WBC 10.7 k/uL (3.8-10.6)
[2023-11-29 04:47] LABS: ALT 26 U/L (4-49); AST 20 U/L (17-59); African American GFR (CKD) >90 (>60 ml/min/1.73 sqM); Albumin 4.3 g/dL (3.5-5.0); Alkaline Phosphatase 103 U/L (38-126); Anion Gap 10 mmol/L; Blood Urea Nitrogen 33 mg/dL (9-20); Calcium 9.4 mg/dL (8.4-10.2); Carbon Dioxide 22 mmol/L (22-30); Chloride 107 mmol/L (98-107); Glucose 109 mg/dL (74-99); Non-African American GFR(CKD) >90 (>60 ml/min/1.73 sqM); Potassium 4.6 mmol/L (3.5-5.1); Sodium 139 mmol/L (137-145); Total Bilirubin 0.6 mg/dL (0.2-1.3); Total Protein 7.6 g/dL (6.3-8.2)
[2023-11-29 05:06] LABS: Appearance,Urine Cloudy (Clear); Bacteria,Urine Many /hpf; Bilirubin,Urine Negative (Negative); Blood,Urine Small (Negative); Color,Urine Colorless; Glucose,Urine (UA) Negative (Negative); Ketones,Urine Negative (Negative); Leukocyte Esterase,Urine Large (Negative); Nitrite,Urine Positive (Negative); Protein,Urine 2+ (Negative); RBC,Urine 11 /hpf (0-5); Specific Gravity,Urine 1.014 (1.001-1.035); Urobilinogen,Urine <2.0 mg/dL (<2.0); WBC,Urine >182 /hpf (0-5)
[2023-11-29] MEDS: cefTRIAXone IN SWFI 1,000 MG/10 ML SYRINGE IVP STA (05:42)
[2023-11-29] MEDS: SODIUM CHLORIDE 0.9% 500 ML 500 ML IV ONE (05:42)
--- NOTE | 2023-11-29 06:05 | CT ---
EXAM: CT Abdomen and Pelvis Without Intravenous Contrast CLINICAL HISTORY: ITS.REASON CT Reason: rt flank pain TECHNIQUE: Axial computed tomography images of the abdomen and pelvis without intravenous contrast. CTDI is 23.4 mGy and DLP is 1344 mGy-cm. This CT exam was performed using one or more of the following dose reduction techniques: automated exposure control, adjustment of the mA and/or kV according to patient size, and/or use of iterative reconstruction technique. COMPARISON: CT dated 11/07/2019 FINDINGS: Lung bases: Unremarkable. No mass. No consolidation. ABDOMEN: Liver: The liver is enlarged with uniform decreased density consistent with hepatic steatosis. No evidence of hepatic mass. Gallbladder and bile ducts: Unremarkable. No calcified stones. No ductal dilation. Pancreas: Unremarkable. No ductal dilation. Spleen: The spleen is enlarged without evidence of mass. Adrenals: Unremarkable. No mass. Kidneys and ureters: Lobular contour of the bilateral kidneys. Calcifications are seen at the inferior pole of the right kidney. Bilateral nonobstructive nephrolithiasis. No urolithiasis. Moderate to severe colonic stool burden. Stomach and bowel: Unremarkable. No obstruction. No mucosal thickening. PELVIS: Appendix: See below. Bladder: Unremarkable. No stones. Reproductive: Unremarkable as visualized. ABDOMEN and PELVIS: Intraperitoneal space: Unremarkable. No free air. No significant fluid collection. Bones/joints: Degenerative changes are seen within the spine and hips. Laminectomy changes are seen at L3-L5. No acute fracture. No dislocation. Soft tissues: Right-sided lumbar hernia containing the cecum and appendix. Vasculature: Unremarkable. No abdominal aortic aneurysm. Lymph nodes: Unremarkable. No enlarged lymph nodes. Tubes, lines and devices: Non-specific rounded foreign density which may represent catheter tubing is seen within the pelvis. This is seen on prior examination. IMPRESSION: 1. No acute intra-abdominal findings. 2. Stable linear density seen within the pelvis which may represent catheter tubing. 3. No evidence of nephro or urolithiasis. 4. Lumbar hernia containing cecum and appendix without evidence of obstruction.
[2023-11-29 06:18] VITALS: BP 118/83; PULSE 113
[2023-11-29] MEDS: KETOROLAC 15 MG/ML 1 ML VIAL IVP STA (06:28)
== END 2023-11-29 07:42 ==
LOC: EC 03:40
DX: N39.0 Urinary tract infection, site not specified (principal); Z91.040 Latex allergy status; Z88.1 Allergy status to other antibiotic agents
CPT/HCPCS: 36415; 80053; 85025; 81001; 87086; 74176; 99284; 96374; 96375; 96361; J0696; J1885; 87077; 87186

== ENCOUNTER 2024-11-08 20:51 | Observation (INO) | payer MEDICARE, OTHER ==
[2024-11-08 21:50] LABS: Appearance,Urine Cloudy (Clear); Bacteria,Urine Many /hpf; Bilirubin,Urine Negative (Negative); Blood,Urine Small (Negative); Color,Urine Colorless; Glucose,Urine (UA) Negative (Negative); Ketones,Urine Negative (Negative); Leukocyte Esterase,Urine Large (Negative); Mucus,Urine Rare /hpf; Nitrite,Urine Negative (Negative); PH, Urine 6.5 (5.0-8.0); Protein,Urine 2+ (Negative); RBC,Urine 7 /hpf (0-5); Specific Gravity,Urine 1.013 (1.001-1.035); Urobilinogen,Urine <2.0 mg/dL (<2.0); WBC,Urine >182 /hpf (0-5)
[2024-11-08] MEDS: KETOROLAC 15 MG/ML 1 ML VIAL IVP STA (22:11)
[2024-11-08 22:14] LABS: Basophils % (A) 0 %; Eosinophils # (A) 0.2 k/uL (0-0.7); Eosinophils % (A) 3 %; HCT 44.2 % (39.0-53.0); HGB 15.4 gm/dL (13.0-17.5); Lymphocytes % (A) 15 %; MCH 31.5 pg (25.0-35.0); MCHC 34.9 g/dL (31.0-37.0); MCV 90.2 fL (80.0-100.0); Mean Platelet Volume 7.4; Monocytes # (A) 0.4 k/uL (0-1.0); Monocytes % (A) 6 %; Neutrophils % (A) 74 %; Platelet Count 153 k/uL (150-450); RBC 4.89 m/uL (4.30-5.90); RDW 14.8 % (11.5-15.5); WBC 6.8 k/uL (3.8-10.6)
[2024-11-08 22:35] LABS: ALT 30 U/L (4-49); AST 21 U/L (17-59); African American GFR (CKD) >90 (>60 ml/min/1.73 sqM); Albumin 4.5 g/dL (3.5-5.0); Alkaline Phosphatase 105 U/L (38-126); Anion Gap 13 mmol/L; Blood Urea Nitrogen 34 mg/dL (9-20); Calcium 9.6 mg/dL (8.4-10.2); Carbon Dioxide 23 mmol/L (22-30); Chloride 104 mmol/L (98-107); Glucose 115 mg/dL (74-99); Non-African American GFR(CKD) >90 (>60 ml/min/1.73 sqM); Potassium 4.2 mmol/L (3.5-5.1); Sodium 140 mmol/L (137-145); Total Bilirubin 0.5 mg/dL (0.2-1.3); Total Protein 7.9 g/dL (6.3-8.2)
[2024-11-08] MEDS: SODIUM CHLORIDE 0.9% 1,000 ML IV ONE (22:47)
[2024-11-08] MEDS: MORPHINE SULFATE 4 MG/ML SYRINGE IVP STA (22:49)
--- NOTE | 2024-11-09 00:03 | ED ---
Abdominal Pain HPI - General Source: patient, family, EMS Mode of arrival: EMS Limitations: physical limitation <Orlando Bo - Last Filed: 11/09/24 00:01> <Margarita Martinez - Last Filed: 11/09/24 02:53> - General Chief Complaint: Abdominal Pain Stated Complaint: ABD Pain Time Seen by Provider: 11/08/24 21:12 - History of Present Illness Initial Comments: 29-year-old male with history of spina bifida brought in by his mother with chief complaint of right flank pain. This started suddenly this evening. States that it is a persistent and sharp pain. No nausea or vomiting. Patient requires straight catheterization. No fevers or chills. No hematuria. History of kidney stones. (Orlando Bo) - Related Data Home Medications Medication Instructions Recorded Confirmed Oxybutynin Chloride [Ditropan XL] 15 mg PO DAILY 06/22/14 04/26/23 Losartan [Cozaar] 25 mg PO DAILY 03/17/18 04/26/23 Fluconazole 200 mg PO DAILY 04/26/23 04/26/23 Ketoconazole 2% Shampoo [Nizoral] 1 applic TOPICAL DAILY PRN 04/26/23 04/26/23 Previous Rx's Medication Instructions Recorded Nystatin 100,000 Unit/gm Powd 1 applic TOPICAL TID #0 04/27/23 [Mycostatin Powder] Clindamycin [Cleocin] 300 mg PO Q6H 10 Days #80 cap 07/12/23 Cephalexin [Keflex] 500 mg PO Q12HR #20 cap 11/29/23 Allergies Allergy/AdvReac Type Severity Reaction Status Date / Time Latex, Natural Rubber Allergy Rash/Hives Verified 11/08/24 21:10 nitrofurantoin Allergy Rash/Hives Verified 11/08/24 21:10 macrocrystalline [From Macrodantin] Review of Systems ROS Other: All systems not noted in ROS Statement are negative. <Orlando Bo - Last Filed: 11/09/24 00:01> ROS Other: All systems not noted in ROS Statement are negative. <Margarita Martinez - Last Filed: 11/09/24 02:53> ROS Statement: Those systems with pertinent positive or pertinent negative responses have been documented in the HPI. Past Medical History Past Medical History: Neurologic Disorder, Seizure Disorder, Sleep Apnea/CPAP/BIPAP Additional Past Medical History / Comment(s): spina bifida, mentally impaired, mom straight caths pt, past hx renal failure, hx of UTI's w/sepsis in Aug & sep 2013, no cpap, questionable seizure disorder- nothing has showed up on eegs. 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 right uretral reimplantation, cervical fusion, cystoscopy with double- J stent left [id number]. open removal of kidney stones 2016, tubes in ears. Past Anesthesia/Blood Transfusion Reactions: No Reported Reaction Past Psychological History: No Psychological Hx Reported Smoking Status: Never smoker Past Alcohol Use History: None Reported Past Drug Use History: None Reported - Past Family History Brother(s) Family Medical History: Seizure Disorder Father Family Medical History: Myocardial Infarction ([place]) Additional Family Medical History / Comment(s): Father of heart attack in 2015 <Orlando Bo - Last Filed: 11/09/24 00:01> General Exam Limitations: physical limitation General appearance: alert, in no apparent distress Head exam: Present: atraumatic, normocephalic, normal inspection Eye exam: Present: normal appearance, EOMI Neck exam: Present: normal inspection. Absent: meningismus Respiratory exam: Absent: respiratory distress Cardiovascular Exam: Present: tachycardia GI/Abdominal exam: Present: soft. Absent: distended, tenderness, guarding, rebound, rigid Neurological exam: Present: alert, oriented X3 Psychiatric exam: Present: normal affect, normal mood Skin exam: Present: warm, dry <Orlando Bo - Last Filed: 11/09/24 00:01> Course <Margarita Martinez - Last Filed: 11/09/24 02:53> Vital Signs 11/08/24 11/08/24 20:59 23:24 Temperature 98.9 F 98.1 F Pulse Rate 115 H 107 H Respiratory 20 19 Rate Blood Pressure 128/87 129/91 O2 Sat by Pulse 98 98 Oximetry - Reevaluation(s) Reevaluation #1: 11/09/24 01:40 Case discussed with [facility] physician, Dr. Hager, who accepts admission. (Margarita Martinez) Medical Decision Making - Lab Data Result diagrams: 11/08/24 22:04 11/08/24 22:04 <Orlando Bo - Last Filed: 11/09/24 00:01> - Lab Data Result diagrams: 11/08/24 22:04 11/08/24 22:04 - Radiology Data Radiology results: report reviewed, image reviewed <Margarita Martinez - Last Filed: 11/09/24 02:53> - Medical Decision Making Was pt. sent in by a medical professional or institution (, PA, [employer], urgent care, hospital, or halfway...) When possible be specific @ -[No] Did you speak to anyone other than the patient for history (EMS, parent, family, police, friend...)? What history was obtained from this source @ -Mother Did you review nursing and triage notes (agree or disagree)? Why? @ -[I reviewed and agree with nursing and triage notes] Were old charts reviewed (outside hosp., previous admission, EMS record, old EKG, old radiological studies, urgent care reports/EKG's, halfway records)? Report findings @ -[No old charts were reviewed] Differential Diagnosis (chest pain, altered mental status, abdominal pain women, abdominal pain men, vaginal bleeding, weakness, fever, dyspnea, syncope, headache, dizziness, GI bleed, back pain, seizure, CVA, palpatations, mental health, musculoskeletal)? @ -MDM Differential Abdominal Pain Men: Appendicitis, cholecystitis, diverticulosis, ischemic bowel, pancreatitis, hepatitis, UTI, gastroenteritis, AAA, incarcerated hernia, bowel obstruction, constipation, inflammatory bowel, hepatitis, peptic ulcer disease, splenic infarction, perforated viscus, testicular torsion... This is not meant to be an all-inclusive list EKG interpreted by me (3pts min.). @ -[As above] X-rays interpreted by me (1pt min.). @ -[None done] CT interpreted by me (1pt min.). @ -[None done] U/S interpreted by me (1pt. min.). @ -[None done] What testing was considered but not performed or refused? (CT, X-rays, U/S, labs)? Why? @ -[None] What meds were considered but not given or refused? Why? @ -[None] Did you discuss the management of the patient with other professionals (professionals i.e. , PA, [employer], lab, RT, psych nurse, social services technician, animal sticker, teacher, complaint investigations officer, continuous pillowcase cutter)? Give summary @ -[No] Was smoking cessation discussed for >3mins.? @ -[No] Was critical care preformed (if so, how long)? @ -[No] Were there social determinants of health that impacted care today? How? (Homelessness, low income, unemployed, alcoholism, drug addiction, transportation, low edu. Level, literacy, decrease access to med. care, fci, rehab)? @ -[No] Was there de-escalation of care discussed even if they declined (Discuss DNR or withdrawal of care, Hospice)? DNR status @ -[No] What co-morbidities impacted this encounter? (DM, HTN, Smoking, COPD, CAD, Cancer, CVA, ARF, Chemo, Hep., AIDS, mental health diagnosis, sleep apnea, morbid obesity)? @ -[None] Was patient admitted / discharged? Hospital course, mention meds given and rou te, prescriptions, significant lab abnormalities, going to OR and other pertinent info. @ -29-year-old male with history of spina bifida presenting with chief complaint of right-sided flank pain. History of kidney stones. No ptosis or anemia. Urine shows large leukocytes and small blood. Many bacteria present. CT is pending. Patient is treated with 2 g of Rocephin. Urine is sent for culture. Undiagnosed new problem with uncertain prognosis? @ -[No] Drug Therapy requiring intensive monitoring for toxicity (Heparin, Nitro, Insulin, Cardizem)? @ -[No] Were any procedures done? @ -[No] Diagnosis/symptom? @ -[default] Acute, or Chronic, or Acute on Chronic? @ -[default] Uncomplicated (without systemic symptoms) or Complicated (systemic symptoms)? @ -[default] Side effects of treatment? @ -[No] Exacerbation, Progression, or Severe Exacerbation? @ -[No] Poses a threat to life or bodily function? How? (Chest pain, USA, [place], pneumonia, PE, COPD, DKA, ARF, appy, cholecystitis, CVA, Diverticulitis, Homicidal, Suicidal, threat to staff... and all critical care pts) @ -[No] (BoOrlando) Was pt. sent in by a medical professional or institution (, PA, [employer], urgent care, hospital, or halfway...) When possible be specific @ -No Did you speak to anyone other than the patient for history (EMS, parent, family, police, friend...)? What history was obtained from this source @ -Patient's mother Did you review nursing and triage notes (agree or disagree)? Why? @ -I reviewed and agree with nursing and triage notes Were old charts reviewed (outside hosp., previous admission, EMS record, old EKG, old radiological studies, urgent care reports/EKG's, halfway records)? Report findings @ -No old charts were reviewed Differential Diagnosis (chest pain, altered mental status, abdominal pain women, abdominal pain men, vaginal bleeding, weakness, fever, dyspnea, syncope, headache, dizziness, GI bleed, back pain, seizure, CVA, palpatations, mental health, musculoskeletal)? @ -Differential Abdominal Pain Men:Appendicitis, cholecystitis, diverticulosis, ischemic bowel, pancreatitis, hepatitis, UTI, gastroenteritis, AAA, incarcerated hernia, bowel obstruction, constipation, inflammatory bowel, hepatitis, peptic ulcer disease, splenic infarction, perforated viscus, testicular torsion, this is not meant to be an all-inclusive list EKG interpreted by me (3pts min.). @ -None done X-rays interpreted by me (1pt min.). @ -None done CT interpreted by me (1pt min.). @ -CT abdomen pelvis showing no obstructive uropathy. Nonobstructing renal stones measuring up to 1.3 cm on the left. Peritoneal shunt catheter terminat ing left lower quadrant. Mild fecal retention. U/S interpreted by me (1pt. min.). @ -None done What testing was considered but not performed or refused? (CT, X-rays, U/S, labs)? Why? @ -None What meds were considered but not given or refused? Why? @ -None Did you discuss the management of the patient with other professionals (professionals i.e. , LEIGH, [employer], lab, RT, psych nurse, social services technician, animal sticker, teacher, complaint investigations officer, continuous pillowcase cutter)? Give summary @ -Case discussed with [facility] physician, Dr. Hager who accepts admission. Was smoking cessation discussed for >3mins.? @ -No Was critical care preformed (if so, how long)? @ -No Were there social determinants of health that impacted care today? How? (Homelessness, low income, unemployed, alcoholism, drug addiction, transportation, low edu. Level, literacy, decrease access to med. care, fci, rehab)? @ -No Was there de-escalation of care discussed even if they declined (Discuss DNR or withdrawal of care, Hospice)? DNR status @ -No What co-morbidities impacted this encounter? (DM, HTN, Smoking, COPD, CAD, Cancer, CVA, ARF, Chemo, Hep., AIDS, mental health diagnosis, sleep apnea, morbid obesity)? @ -Spina bifida, patient straight catheterizes himself Was patient admitted / discharged? Hospital course, mention meds given and route, prescriptions, significant lab abnormalities, going to OR and other pertinent info. @ -Admitted. Patient signed out to me from Orlando Bo PA-C, at her shift completion, pending CT results and disposition. In short this is a 29-year-old male with a past medical history significant of spinal bifida presenting to the ER for evaluation of right flank pain. CT abdomen pelvis showing nonobstructive renal stones measuring up to 1.3 cm on the left. No obstructive uropathy. Peritoneal shunt catheter terminates at the left lower quadrant. Mild fecal retention. Upon reevaluation, patient resting comfortably in exam room no signs of acute distress. Vitals stable. Results discussed with patient and family, at bedside, all questions answered. Admission was recommended at that time for IV antibiotic treatment of pyelonephritis given UTI with flank pain persisting through analgesic medications given in the ER. Patient also straight catheterizes himself. Admission accepted by [facility] pu[facility], Dr Hager. Family and patient are agreeable. Blood cultures obtained. Patient given 2 g IV Rocephin in the ER. Patient admitted in stable condition for further evaluation and treatment. Case discussed with ED attending, Dr. Quintanilla. Undiagnosed new problem with uncertain prognosis? @ -No Drug Therapy requiring intensive monitoring for toxicity (Heparin, Nitro, Insulin, Cardizem)? @ -No Were any procedures done? @ -No Diagnosis/symptom? @ -Pyelonephritis Acute, or Chronic, or Acute on Chronic? @ -Acute Uncomplicated (without systemic symptoms) or Complicated (systemic symptoms)? @ -Complicated Side effects of treatment? @ -No Exacerbation, Progression, or Severe Exacerbation? @ -No Poses a threat to life or bodily function? How? (Chest pain, USA, [place], pneumonia, PE, COPD, DKA, ARF, appy, cholecystitis, CVA, Diverticulitis, Homicidal, Suicidal, threat to staff... and all critical care pts) @ -Yes, pyelonephritis can lead to sepsis and/or endorgan dysfunction. (Margarita Martinez) - Lab Data Lab Results 11/08/24 11/08/24 11/08/24 Range/Units 21:32 22:04 22:04 WBC 6.8 (3.8-10.6) k/uL RBC 4.89 (4.30-5.90) m/uL Hgb 15.4 (13.0-17.5) gm/dL Hct 44.2 (39.0-53.0) % MCV 90.2 (80.0-100.0) fL MCH 31.5 (25.0-35.0) pg MCHC 34.9 (31.0-37.0) g/dL RDW 14.8 (11.5-15.5) % Plt Count 153 (150-450) k/uL MPV 7.4 Neutrophils % 74 % Lymphocytes % 15 % Monocytes % 6 % Eosinophils % 3 % Basophils % 0 % Neutrophils # 5.0 (1.3-7.7) k/uL Lymphocytes # 1.0 (1.0-4.8) k/uL Monocytes # 0.4 (0-1.0) k/uL Eosinophils # 0.2 (0-0.7) k/uL Basophils # 0.0 (0-0.2) k/uL Sodium 140 (137-145) mmol/L Potassium 4.2 (3.5-5.1) mmol/L Chloride 104 (98-107) mmol/L Carbon Dioxide 23 (22-30) mmol/L Anion Gap 13 mmol/L BUN 34 H (9-20) mg/dL Creatinine 0.97 (0.66-1.25) mg/dL Est GFR (CKD-EPI)AfAm >90 (>60 ml/min/1.73 sqM) Est GFR (CKD-EPI)NonAf >90 (>60 ml/min/1.73 sqM) Glucose 115 H (74-99) mg/dL Plasma Lactic Acid Yogi (0.7-2.0) mmol/L Calcium 9.6 (8.4-10.2) mg/dL Total Bilirubin 0.5 (0.2-1.3) mg/dL AST 21 (17-59) U/L ALT 30 (4-49) U/L Alkaline Phosphatase 105 (38-126) U/L Total Protein 7.9 (6.3-8.2) g/dL Albumin 4.5 (3.5-5.0) g/dL Urine Color Colorless Urine Appearance Cloudy (Clear) Urine pH 6.5 (5.0-8.0) Ur Specific [place] 1.013 (1.001-1.035) Urine Protein 2+ H (Negative) Urine Glucose (UA) Negative (Negative) Urine Ketones Negative (Negative) Urine Blood Small H (Negative) Urine Nitrite Negative (Negative) Urine Bilirubin Negative (Negative) Urine Urobilinogen <2.0 (<2.0) mg/dL Ur Leukocyte Esterase Large H (Negative) Urine RBC 7 H (0-5) /hpf Urine WBC >182 H (0-5) /hpf Urine WBC Clumps Many H (None) /hpf Urine Bacteria Many H (None) /hpf Urine Mucus Rare H (None) /hpf 11/08/24 Range/Units 22:04 WBC (3.8-10.6) k/uL RBC (4.30-5.90) m/uL Hgb (13.0-17.5) gm/dL Hct (39.0-53.0) % MCV (80.0-100.0) fL MCH (25.0-35.0) pg MCHC (31.0-37.0) g/dL RDW (11.5-15.5) % Plt Count (150-450) k/uL MPV Neutrophils % % Lymphocytes % % Monocytes % % Eosinophils % % Basophils % % Neutrophils # (1.3-7.7) k/uL Lymphocytes # (1.0-4.8) k/uL Monocytes # (0-1.0) k/uL Eosinophils # (0-0.7) k/uL Basophils # (0-0.2) k/uL Sodium (137-145) mmol/L Potassium (3.5-5.1) mmol/L Chloride (98-107) mmol/L Carbon Dioxide (22-30) mmol/L Anion Gap mmol/L BUN (9-20) mg/dL Creatinine (0.66-1.25) mg/dL Est GFR (CKD-EPI)AfAm (>60 ml/min/1.73 sqM) Est GFR (CKD-EPI)NonAf (>60 ml/min/1.73 sqM) Glucose (74-99) mg/dL Plasma Lactic Acid Yogi 1.1 (0.7-2.0) mmol/L Calcium (8.4-10.2) mg/dL Total Bilirubin (0.2-1.3) mg/dL AST (17-59) U/L ALT (4-49) U/L Alkaline Phosphatase (38-126) U/L Total Protein (6.3-8.2) g/dL Albumin (3.5-5.0) g/dL Urine Color Urine Appearance (Clear) Urine pH (5.0-8.0) Ur Specific [place] (1.001-1.035) Urine Protein (Negative) Urine Glucose (UA) (Negative) Urine Ketones (Negative) Urine Blood (Negative) Urine Nitrite (Negative) Urine Bilirubin (Negative) Urine Urobilinogen (<2.0) mg/dL Ur Leukocyte Esterase (Negative) Urine RBC (0-5) /hpf Urine WBC (0-5) /hpf Urine WBC Clumps (None) /hpf Urine Bacteria (None) /hpf Urine Mucus (None) /hpf Disposition <Orlando Bo - Last Filed: 11/09/24 00:01> Time of Disposition: 01:35 <Margarita Martinez - Last Filed: 11/09/24 02:53> Clinical Impression: Pyelonephritis Disposition: ADMITTED IP TO THIS HOSP Condition: Stable
--- NOTE | 2024-11-09 01:03 | CT ---
EXAM: CT Abdomen and Pelvis Without Intravenous Contrast CLINICAL HISTORY: ITS.REASON CT Reason: Right flank pain TECHNIQUE: Axial computed tomography images of the abdomen and pelvis without intravenous contrast. This CT exam was performed using one or more of the following dose reduction techniques: automated exposure control, adjustment of the mA and/or kV according to patient size, and/or use of iterative reconstruction technique. COMPARISON: No relevant prior studies available. FINDINGS: Lung bases: Unremarkable. No mass. No consolidation. ABDOMEN: Liver: Unremarkable. Gallbladder and bile ducts: Unremarkable. No calcified stones. No ductal dilation. Pancreas: Unremarkable. No ductal dilation. Spleen: Unremarkable. No splenomegaly. Adrenals: Unremarkable. No mass. Kidneys and ureters: Nonobstructing renal stones measuring up to 1.3 cm in the LEFT lower pole. Stomach and bowel: Mild fecal retention, correlate for constipation. No obstruction. No mucosal thickening. PELVIS: Appendix: No findings to suggest acute appendicitis. Bladder: Unremarkable. No stones. Reproductive: Unremarkable as visualized. ABDOMEN and PELVIS: Intraperitoneal space: Unremarkable. No free air. No significant fluid collection. Bones/joints: Multilevel lumbar spine laminectomies. No acute fracture. No dislocation. Soft tissues: Right-sided lumbar (RIGHT abdominal wall) hernia. Vasculature: Unremarkable. No abdominal aortic aneurysm. Lymph nodes: Unremarkable. No enlarged lymph nodes. Tubes, lines and devices: Peritoneal shunt catheter terminates in the LEFT lower quadrant. Abandoned catheter fragment is located in the pelvis. IMPRESSION: 1. Nonobstructing renal stones measuring up to 1.3 cm in the LEFT lower pole. No obstructive uropathy. 2. Peritoneal shunt catheter terminates in the LEFT lower quadrant. 3. Mild fecal retention, correlate for constipation.
[2024-11-09] MEDS ORDERED: NALOXONE 0.4 MG/ML 1 ML VIAL IV PRN (01:37)
[2024-11-09] MEDS ORDERED: MORPHINE SULFATE 2 MG/ML SYRINGE IV PRN (01:37)
[2024-11-09] MEDS ORDERED: ONDANSETRON 4 MG/2 ML VIAL IVP PRN (01:37)
[2024-11-09] MEDS: SODIUM CHLORIDE 0.9% 1,000 ML IV SCH (02:19)
--- NOTE | 2024-11-09 07:28 | P.HPIM ---
History of Present Illness H&P Date: 11/09/24 27-year-old male with spina bifida quadriplegia learning disability neurogenic bladder recurrent UTI history of kidney stones Patient unable to provide any meaningful history which was obtained by speaking with the mother who does his straight cathing she reports that he has been complaining of right flank pain for which she recognizes as early symptoms of his recurrent UTI for which he brought him to the hospital for evaluation she denies any fevers chills nausea vomiting denies any changes in his mental status. Patient mother denies having any pressure ulcers or wounds at this time denies any diarrhea or bleeding review of systems unable to obtain on exam Constitutional: No acute distress Eyes: Anicteric sclerae, moist conjunctiva, Pupils equal round reactive to light Lungs: Clear to auscultation Clear to percussion Normal respiratory effort, no accessory muscle use Cardiovascular: Heart regular in rate and rhythm, No murmurs, gallops, or rubs No peripheral edema Abdominal: Soft Nontender, no guarding, rebound or rigidity Abdomen moving with respiration Normoactive bowel sounds Extremities: No digital cyanosis Pedal pulses intact and symmetrical Radial pulses intact and symmetrical No calf tenderness Psychiatric: awake , cooperative , oriented to self Past Medical History Past Medical History: Neurologic Disorder, Seizure Disorder, Sleep Apnea/CPAP/BIPAP Additional Past Medical History / Comment(s): spina bifida, mentally impaired, mom straight caths pt, History of Any Multi-Drug Resistant Organisms: MRSA Date of last positivie culture/infection: 04/28/23 MDRO Source:: Left Antecubital, Right Knee Past Surgical History: Back Surgery, Tonsillectomy Additional Past Surgical History / Comment(s): 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 right uretral reimplantation, cervical fusion, cystoscopy with double- J stent left [id number]. open removal of kidney stones 2017, tubes in ears. Past Anesthesia/Blood Transfusion Reactions: No Reported Reaction Past Psychological History: No Psychological Hx Reported Smoking Status: Never smoker Past Alcohol Use History: None Reported Past Drug Use History: None Reported - Past Family History Brother(s) Family Medical History: Seizure Disorder Father Family Medical History: Myocardial Infarction ([place]) Additional Family Medical History / Comment(s): Father of heart attack in 2016 Medications and Allergies Home Medications Medication Instructions Recorded Confirmed Type Oxybutynin Chloride [Ditropan XL] 15 mg PO DAILY 06/22/14 04/26/23 History Losartan [Cozaar] 25 mg PO DAILY 03/17/18 04/26/23 History Fluconazole 200 mg PO DAILY 04/26/23 04/26/23 History Ketoconazole 2% Shampoo [Nizoral] 1 applic TOPICAL DAILY PRN 04/26/23 04/26/23 History Nystatin 100,000 Unit/gm Powd 1 applic TOPICAL TID #0 04/27/23 04/26/23 Rx [Mycostatin Powder] Clindamycin [Cleocin] 300 mg PO Q6H 10 Days #80 cap 07/12/23 Rx Cephalexin [Keflex] 500 mg PO Q12HR #20 cap 11/29/23 Rx Allergies Allergy/AdvReac Type Severity Reaction Status Date / Time Latex, Natural Rubber Allergy Rash/Hives Verified 11/08/24 21:10 nitrofurantoin Allergy Rash/Hives Verified 11/08/24 21:10 macrocrystalline [From Macrodantin] Physical Exam Vitals: Vital Signs Temp Pulse Resp BP Pulse Ox 11/09/24 07:09 98.2 F 103 H 19 124/85 98 11/09/24 03:45 97.9 F 80 19 123/87 98 11/08/24 23:24 98.1 F 107 H 19 129/91 98 11/08/24 20:59 98.9 F 115 H 20 128/87 98 Intake and Output 11/08/24 11/09/24 11/09/24 22:59 06:59 14:59 Other: Weight 131.542 kg Results CBC & Chem 7: 11/08/24 22:04 11/08/24 22:04 Labs: Abnormal Lab Results - Last 24 Hours (Table) 11/08/24 11/08/24 Range/Units 21:32 22:04 BUN 34 H (9-20) mg/dL Glucose 115 H (74-99) mg/dL Urine Protein 2+ H (Negative) Urine Blood Small H (Negative) Ur Leukocyte Esterase Large H (Negative) Urine RBC 7 H (0-5) /hpf Urine WBC >182 H (0-5) /hpf Urine WBC Clumps Many H (None) /hpf Urine Bacteria Many H (None) /hpf Urine Mucus Rare H (None) /hpf Assessment and Plan Assessment: 29-year-old male with quadriplegia secondary to spina bifida, learning disabilities, recurrent UTI comes in for evaluation of right flank pain discussed case with the doctor and accepted the admission for acute UTI Acute recurrent complicated UTI Follow-up cultures Rocephin 1 g IV piggyback daily Tylenol 650 mg p.o. as needed for fevers IV fluid hydration normal saline 100 cc/h CT of the abdomen pelvis showed nonobstructing renal stone measuring 1.3 cm in the left lower pole of the kidney no obstructive uropathy, peritoneal shunt catheter terminates in the left lower quadrant, mild fecal retention Neurogenic bladder secondary to spina bifida and quadriplegia Cognitive impairment Continue losartan which patient takes for kidney health patient mother denies hypertension full code DVT prophylaxis Lovenox 40 mg subcu daily
[2024-11-09] MEDS: NYSTATIN 100,000 UNIT/GM POWD 15 GM TOPICAL SCH (08:56)
[2024-11-09] MEDS: ENOXAPARIN 40 MG/0.4 ML SYRINGE SQ SCH (08:57)
[2024-11-09] MEDS: OXYBUTYNIN 15 MG TAB.ER.24 PO SCH (08:57)
[2024-11-09] MEDS ORDERED: LOSARTAN 25 MG TAB PO SCH (09:00)
--- NOTE | 2024-11-09 14:17 | P.PN ---
Subjective Progress Note Date: 11/09/24 Hospital Course: 82-year-old male with past medical history of spina bifida, mentally impaired, neurogenic bladder straight catheterization at home, sleep apnea not on CPAP, seizure disorder, history of recurrent UTIs, nephrolithiasis. Who presented to the ER due to right flank pain that was believed to be a UTI by his mother who is his primary sales administration specialist. No reported fevers or chills, nausea, vomiting, mental status changes. Patient hemodynamically stable on admission, afebrile, heart rate goes between 80s and 100s, satting well on room air. Lab work revealed no leukocytosis, normal and stable kidney function, UA positive for UTI. Patient was started on IV ceftriaxone, previously urine cultures growing E. coli. Urine cultures ordered, admitted for further treatment and evaluation. CT abdomen pelvis showed nonobstructing right renal stone measuring 1.3 in the left pole of the kidney, no obstructive uropathy, peritoneal shunt catheter, mild fecal retention. Subjective: Patient was seen and examined at bedside, he denied abdominal pain, difficulties breathing Pertinent positives and negatives as discussed above, a complete review of systems was performed and all other systems are negative. Vitals Signs Reviewed. General: [nontoxic], [no distress], -obese Derm: [warm], [dry] Head: [atraumatic], [normocephalic], [symmetric] Eyes: [EOMI], [no lid lag], [anicteric sclera] Mouth: [no lip lesion], [mucus membranes moist] Cardiovascular: [S1S2 reg], [no murmur] Lungs: [CTA bilateral], [no rhonchi, no rales] , [no accessory muscle use] Abdominal: [soft], [ nontender to palpation], [no guarding], [no appreciable organomegaly] Neuro: [ CN II-XI grossly intact], Psych: [Alert, oriented to self, cooperative Assessment and Plan: Recurrent acute complicated UTI Neurogenic bladder with self catheterization History of E. coli UTI -Continue ceftriaxone IV 1 g daily SOT 11/09 -Continue IV fluids at 100 cc/h with normal saline -Continue losartan for kidney protection, no history of hypertension Nephrolithiasis, left nonobstructing renal stone 1.3 cm: May follow-up with urology as outpatient Cognitive impairment Spina bifida DVT ppx: Lovenox Code status: Full code Anticipated discharge place: Home Anticipated discharge time: 24 to 48 hours Objective - Vital Signs Vital signs: Vital Signs Temp 98.2 F 11/09/24 07:09 Pulse 90 11/09/24 13:39 Resp 18 11/09/24 13:39 BP 109/75 11/09/24 13:39 Pulse Ox 100 11/09/24 13:39 FiO2 Intake & Output 11/08/24 11/09/24 11/09/24 18:59 06:59 18:59 Weight 131.542 kg - Labs CBC & Chem 7: 11/08/24 22:04 11/08/24 22:04 Labs: Abnormal Lab Results - Last 24 Hours (Table) 11/08/24 11/08/24 Range/Units 21:32 22:04 BUN 34 H (9-20) mg/dL Glucose 115 H (74-99) mg/dL Urine Protein 2+ H (Negative) Urine Blood Small H (Negative) Ur Leukocyte Esterase Large H (Negative) Urine RBC 7 H (0-5) /hpf Urine WBC >182 H (0-5) /hpf Urine WBC Clumps Many H (None) /hpf Urine Bacteria Many H (None) /hpf Urine Mucus Rare H (None) /hpf
[2024-11-09] MEDS: KETOROLAC 15 MG/ML 1 ML VIAL IVP PRN (17:55)
[2024-11-10 09:06] LABS: Basophils # (A) 0.03 X 10*3/uL (0.00-0.10); Basophils % (A) 0.6 %; Eosinophils # (A) 0.18 X 10*3/uL (0.04-0.35); Eosinophils % (A) 3.4 %; HCT 38.8 % (39.6-50.0); HGB 12.6 g/dL (13.0-17.0); Lymphocytes # (A) 1.53 X 10*3/uL (0.90-5.00); Lymphocytes % (A) 29.1 %; MCH 30.7 pg (27.0-32.0); MCHC 32.5 g/dL (32.0-37.0); MCV 94.6 FL (80.0-97.0); Mean Platelet Volume 10.9 FL (9.5-12.2); Monocytes % (A) 7.6 %; NRBC Per 100 WBC 0 X 10*3/uL (0.00-0.01); Neutrophils # (A) 3.11 X 10*3/uL (1.80-7.70); Neutrophils % (A) 59.1 %; Platelet Count 131 X 10*3/uL (140-440); RDW 14.5 % (11.5-14.5); WBC 5.26 X 10*3/uL (4.50-10.00)
[2024-11-10 09:19] LABS: Blood Urea Nitrogen 28.3 mg/dL (9.0-27.0); Calcium 8.4 mg/dL (8.7-10.3); Carbon Dioxide 19.4 mmol/L (21.6-31.8); Chloride 111 mmol/L (96-109); Glucose 85 mg/dL (70-110); Potassium 4.4 mmol/L (3.5-5.5); Sodium 141 mmol/L (135-145)
[2024-11-10 14:22] VITALS: BP 119/80; PULSE 91; RESP 19; TEMP 97.3
--- NOTE | 2024-11-10 15:12 | P.DS ---
Providers Date of admission: 11/09/24 01:28 Attending physician: Alice Hager MD Primary care physician: Manfred Mckinnon [facility] Course: Discharge Diagnosis: Recurrent acute complicated UTI Neurogenic bladder with self catheterization History of E. coli UTI Nephrolithiasis, left nonobstructing renal stone 1.3 cm Hospital Course: 29-year-old male with past medical history of spina bifida, mentally impaired, neurogenic bladder straight catheterization at home, sleep apnea not on CPAP, seizure disorder, history of recurrent UTIs, nephrolithiasis. Who presented to the ER due to right flank pain that was believed to be a UTI by his mother who is his primary cosmetician. No reported fevers or chills, nausea, vomiting, mental status changes. Patient hemodynamically stable on admission, afebrile, heart rate goes between 80s and 100s, satting well on room air. Lab work revealed no leukocytosis, normal and stable kidney function, UA positive for UTI. Patient was started on IV ceftriaxone, previously urine cultures growing E. coli. Urine cultures ordered, admitted for further treatment and evaluation. CT abdomen pelvis showed nonobstructing right renal stone measuring 1.3 in the left pole of the kidney, no obstructive uropathy, peritoneal shunt catheter, mild fecal retention. Patient remained afebrile throughout his hospital stay, his leukocyte count is normal. Kidney function normal. Urine cultures growing gram-negative bacilli, blood cultures preliminary negative. Patient will be discharged on cefpodoxime 100 twice daily for 5 more days to complete 7 days total for treatment of complicated UTI. Discussed with patient's mother, patient will follow-up with his primary urologist as outpatient. Patient seen and examined at bedside. He feels well, has mild right-sided discomfort, tolerated diet well Vital signs reviewed and stable. General: [nontoxic], [no distress], -obese Derm: [warm], [dry] Head: [atraumatic], [normocephalic], [symmetric] Eyes: [EOMI], [no lid lag], [anicteric sclera] Mouth: [no lip lesion], [mucus membranes moist] Cardiovascular: [S1S2 reg], [no murmur] Lungs: [CTA bilateral], [no rhonchi, no rales] , [no accessory muscle use] Abdominal: [soft], [ nontender to palpation], [no guarding], [no appreciable organomegaly] Neuro: [ CN II-XI grossly intact], Psych: [Alert, oriented to self, cooperative A total of 40 minutes of time were spent preparing this complex discharge summary. Patient was discharged on 11/10. Patient remained afebrile throughout his hospital stay Patient Condition at Discharge: Stable Plan - Discharge Summary Discharge Rx Participant: Yes New Discharge Prescriptions: New Cefpodoxime Proxetil [Vantin] 200 mg PO Q12HR #10 tab Continue Oxybutynin Chloride [Ditropan XL] 15 mg PO DAILY Losartan [Cozaar] 25 mg PO DAILY Discharge Medication List Oxybutynin Chloride [Ditropan XL] 15 mg PO DAILY 06/22/14 [History] Losartan [Cozaar] 25 mg PO DAILY 03/17/18 [History] Cefpodoxime Proxetil [Vantin] 200 mg PO Q12HR #10 tab 11/10/24 [Rx] Follow up Appointment(s)/Referral(s): Manfred Barraza MD [Primary Care Provider] - 1-2 days Patient Instructions/Handouts: Catheter-associated Urinary Tract Infection (DC) Activity/Diet/Wound Care/Special Instructions: Please,, follow up with your PCP and urologist as discussed, Complete antibiotics, start Cefpodoxime 11/10 for 5 additional days. Stay hydrated. Discharge Disposition: HOME SELF-CARE
== END 2024-11-10 16:43 | disposition home or self-care (01) ==
LOC: EC 20:51 → 6NMEDSUR 11-09 01:28 → 4SSUR 11-09 19:21
PROVIDERS: ADMIT Internal Medicine; ATTEND Internal Medicine
DX: N20.0 Calculus of kidney (principal); N10 Acute pyelonephritis; G82.50 Quadriplegia, unspecified; N31.9 Neuromuscular dysfunction of bladder, unspecified; Q05.5 Cervical spina bifida without hydrocephalus; G47.30 Sleep apnea, unspecified; Z87.440 Personal history of urinary (tract) infections; Z98.2 Presence of cerebrospinal fluid drainage device; Z79.899 Other long term (current) drug therapy; Z91.040 Latex allergy status
CPT/HCPCS: 96366 ×2; 96372; 96376; 96365 ×2; 96375; 99285; 36415; 80053; 80048; 83605; 85025 ×2; 81001; 87040; 87086; 87077; 87186; 74176; G0378 ×2; J2270; J0696 ×3; J1650; J1885 ×2